=== PATIENT | female | born 1950 | race Caucasian/White ===

== ENCOUNTER 2018-05-17 10:33 | Emergency (ER) | payer OTHER ==
--- NOTE | 2018-05-17 11:23 | RAD REPORT ---
EXAM DESCRIPTION: CT - Head Brain Wo Cont - 05/17/2018 11:10 am CLINICAL HISTORY: Dizziness;Headache COMPARISON: No comparisons TECHNIQUE: All CT scans are performed using dose optimization technique as appropriate and may inclu de automated exposure control or mA/KV adjustment according to patient size. FINDINGS: No intracranial hemorrhage, hydrocephalus or extra-axial fluid collection.No areas of brai n edema or evidence of midline shift. Prominent ethmoid opacification is seen. Fluid is present in the left mastoid cell. The calvarium is intact. IMPRESSION: No acute intracranial abnormality. Opacification of the right ethmoid sinus and left mastoid air cell suggesting sinusitis/mastoiditis.
[2018-05-17 11:32] LABS: Urine Blood NEGATIVE (NEG); Urine Glucose NEGATIVE (NEG); Urine Protein NEGATIVE (NEG)
[2018-05-17 11:41] LABS: Absolute Lymphocytes (CBC) 0.7 K/uL (0.7-4.9); Absolute Monocytes 0.3 K/uL (0.1-1.3); Absolute Neutrophil 3.2 K/uL (1.8-8.0); Basophils % 0.3 % (0-1.3); Eosinophils % 0.6 % (0-4.4); Hematocrit 48.5 % (36.0-45.0); MCH 31.1 pg (27.0-35.0); MCV 94.8 fL (80-100); MPV 9.1 fL (7.6-11.3); Monocytes % 7.3 % (3.3-12.3); RBC Red Blood Cell Count 5.12 M/uL (3.86-4.86)
[2018-05-17 11:42] LABS: Protime INR 0.92
[2018-05-17] MEDS ORDERED: DEXAMETHASONE 10 MG/ML VIAL ONE (11:43)
[2018-05-17] MEDS ORDERED: METOCLOPRAMIDE 10 MG/2mL INJ ONE (11:43)
[2018-05-17] MEDS ORDERED: NA CHLORIDE 0.9% 50 ML IV ONE (11:44)
[2018-05-17] MEDS ORDERED: NA CHLORIDE 0.9% 0 ML IV ONE (11:44)
[2018-05-17] MEDS ORDERED: DIPHENHYDRAMINE 50 MG/ML VIAL ONE (11:44)
--- NOTE | 2018-05-17 12:03 | EKG ---
Test Date: 2018-05-17 Test Time: 11:17:15 Irrigator Head: REINA MEASUREMENT RESULTS: Intervals: Rate: 102 NC: 146 QRSD: 82 QT: 322 QTc: 419 [place]: P: 61 NC: 146 QRS: 71 T: 49 INTERPRETIVE STATEMENTS: Sinus tachycardia Otherwise normal ECG Compared to ECG 08/07/2017 16:37:48 Sinus rhythm no longer present Electronically Signed On 05-17-18 12:03:19 CDT by Berny Walsh
[2018-05-17 12:05] LABS: BUN Blood Urea Nitrogen 13 mg/dL (7-18); Bicarbonate 36 mmol/L (21-32); Glucose Level 96 mg/dL (74-106); Potassium 4.5 mmol/L (3.5-5.1); Sodium Level 144 mmol/L (136-145)
[2018-05-17] MEDS ORDERED: ALBUTEROL 2.5 MG/3 ML NEB SOL ONE (12:35)
[2018-05-17] MEDS ORDERED: IPRATROPIUM BROM 0.5MG/2.5ML ONE (12:36)
--- NOTE | 2018-05-17 13:31 | ER ---
Nurse's Notes [facility] Name: Cassia Garcia Age: 67 yrs Sex: Female : 1950 Arrival Date: 05/17/2018 Time: 10:36 Bed 14 Private MD: Diagnosis: Migraine Presentation: 05/17 10:37 Presenting complaint: EMS states: Pt reports headache x 1 week and dizziness x 3 weeks, ph states that her doctor wanted her to have a neuro check. Transition of care: patient was not received from another setting of care. Onset of symptoms was May 17, 2018. Risk Assessment: Do you want to hurt yourself or someone else? Patient reports no desire to harm self or others. Initial Sepsis Screen: Does the patient meet any 2 criteria? No. Patient's initial sepsis screen is negative. Does the patient have a suspected source of infection? No. Patient's initial sepsis screen is negative. Care prior to arrival: None. 10:37 Method Of Arrival: EMS: [facility] 10:37 Acuity: [facility] 3 ph Historical: - Allergies: 10:41 Aspirin; ph - Home Meds: 11:16 Breo Ellipta 100-25 mcg/dose inhalation dsdv [Active]; Symbicort 80-4.5 mcg/actuation ph inhalation HFAA [Active]; Ventolin HFA 90 mcg/actuation Nebulizer HFAA [Active]; trazodone 100 mg oral tab 1 tab nightly [Active]; benzonatate 100 mg oral cap 1 cap 3 times per day [Active]; montelukast 10 mg oral tab 1 tab once daily [Active]; duloxetine 60 mg oral cpDR 1 cap once daily [Active]; ropinirole 0.25 mg oral tab 1 tab 3 times per day [Active]; levothyroxine 25 mcg tab 1 tab once daily [Active]; - PMHx: 10:41 Anxiety; Bipolar disorder; COPD; Depression; Psychotic behavior; ph - PSHx: 10:41 ; Hysterectomy; Left lumpectomy; ph - Immunization history:: Adult Immunizations unknown. - Social history:: Smoking status: Patient uses tobacco products, smokes one-half pack cigarettes per day. - Ebola Screening: : No symptoms or risks identified at this time. Screenin:18 Abuse screen: Denies threats or abuse. Denies injuries from another. Nutritional ph screening: No deficits noted. Tuberculosis screening: No symptoms or risk factors identified. Fall Risk Fall in past 12 months (25 points). No secondary diagnosis (0 pts). IV access (20 points). Ambulatory Aid- None/Bed Rest/Nurse Assist (0 pts). Gait- Normal/Bed Rest/Wheelchair (0 pts) Mental Status- Oriented to own ability (0 pts). Total [place] Fall Scale indicates High Risk Score (45 or more points). Fall prevention measures have been instituted. Side Rails Up X 2 Placed Close to Nursing Station Frequent Obs/Assessments Occuring As available patient and family educated on Fall Prevention Program and Strategies. Assessment: 10:45 General: Appears in no apparent distress. comfortable, obese, Behavior is calm, ph cooperative, appropriate for age, Denies fever. Pain: Complains of pain in right frontal area and right temporal area Pain currently is 10 out of 10 on a pain scale. Neuro: Level of Consciousness is awake, alert, obeys commands, Oriented to person, place, time, situation, Reports dizziness, x 3 weeks headache in right frontal area, x 1 week Denies weakness blurred vision. Cardiovascular: Capillary refill < 3 seconds in bilateral fingers Patient's skin is warm and dry. Respiratory: Reports cough that is Airway is patent Respiratory effort is even, unlabored, Respiratory pattern is regular, symmetrical. GI: No signs and/or symptoms were reported involving the gastrointestinal system. : No signs and/or symptoms were reported regarding the genitourinary system. Derm: Skin is intact, Skin is pink, warm \\T\\ dry. Musculoskeletal: Circulation, motion, and sensation intact. Range of motion: intact in all extremities. 12:30 Reassessment: Patient appears in no apparent distress at this time. Patient and/or ph family updated on plan of care and expected duration. Pain level reassessed. Patient is alert, oriented x 3, equal unlabored respirations, skin warm/dry/pink. Pt taken to restroom via wheelchair, states, " It's time for my breathing tx, do you think I can get one?" Pt noted to be wheezing and coughing, ERP notified, see MAR. 13:45 Reassessment: Patient appears in no apparent distress at this time. Patient and/or ph family updated on plan of care and expected duration. Pain level reassessed. Patient is alert, oriented x 3, equal unlabored respirations, skin warm/dry/pink. Pt resting quietly, VSS. 14:06 Reassessment: Patient appears in no apparent distress at this time. Patient and/or ph family updated on plan of care and expected duration. Pain level reassessed. Patient is alert, oriented x 3, equal unlabored respirations, skin warm/dry/pink. Pt instructed to follow up w/ neuro and d/c home. Vital Signs: 10:38 BP 152 / 71; Pulse 97; Resp 18; Temp 99.7(O); Pulse Ox 91% on R/A; Weight 110.22 kg; ph Height 5 ft. 1 in. (154.94 cm); Pain 10/10; 11:30 BP 142 / 89; Pulse 98; Resp 22; Pulse Ox 95% on 2 lpm NC; ph 12:31 BP 113 / 74; Pulse 95; Resp 18; Pulse Ox 97% on 2 lpm NC; ph 13:45 BP 145 / 63; Pulse 92; Resp 16; Pulse Ox 93% on R/A; ph 14:19 Temp 97.9(O); ph 10:38 Body Mass Index 45.91 (110.22 kg, 154.94 cm) ph ED Course: 10:36 Patient arrived in ED. ph 10:38 Triage completed. ph 10:41 Arm band placed on. ph 10:46 Ced Irby PA is PHCP. jr8 10:46 Frank García MD is Attending Physician. jr8 11:[address] mw3 11:09 Che Rios, PURVI is Primary Nurse. ph 11:10 CT Head Brain wo Cont In Process Unspecified. EDMS 11:19 Patient has correct armband on for positive identification. Placed in gown. Bed in low ph position. Call light in reach. Side rails up X 1. Pulse ox on. NIBP on. Warm blanket given. 11:25 Missed attempt(s): 22 gauge in left hand. Bleeding controlled, band aid applied, ss catheter tip intact. 11:28 EKG done, by pest control chemical technician. reviewed by Ced LEE. at1 11:34 Inserted saline lock: 22 gauge in left antecubital area, using aseptic technique. Blood ss collected. 13:30 Wilmer Musa MD is Referral Physician. jr8 14:15 No provider procedures requiring assistance completed. IV discontinued, intact, ph bleeding controlled, No redness/swelling at site. Pressure dressing applied. Administered Medications: 11:54 Drug: Reglan 10 mg {Note: mixed in 50cc bag of NS and administered over 15 min.} Route: ph IVP; Site: left antecubital; 11:55 Drug: Benadryl 25 mg Route: IVP; Site: left antecubital; ph 11:57 Drug: Decadron - Dexamethasone 10 mg Route: IVP; Site: left antecubital; ph 12:35 Drug: Albuterol 2.5 mg Route: Inhalation; ss 12:36 Drug: AtroVENT Aerosol 0.5 mg Route: Inhalation; ss 13:35 Drug: fentaNYL (PF) 50 mcg Route: IVP; Site: left antecubital; ph Outcome: 13:30 Discharge ordered by . jr8 14:19 Patient left the ED. ph 14:19 Discharged to home via wheelchair. ph 14:19 Condition: good 14:19 Discharge instructions given to patient, Instructed on discharge instructions, follow up and referral plans. Demonstrated understanding of instructions, follow-up care. Signatures: Dispatcher [employer] EDMS Denise Gibson RN RN Ced Irby PA PA jr8 Elsa hernandez, blow pit helper EKG Tat1 Che Rios RN RN Edyta Quan mw3 Corrections: (The following items were deleted from the chart) 11:57 11:54 Reglan 10 mg IVP in left antecubital ph ph
--- NOTE | 2018-05-17 13:31 | EDPHYS ---
Physician Documentation [facility] Name: Cassia Garcia Age: 67 yrs Sex: Female : 1950 Arrival Date: 05/17/2018 Time: 10:36 Bed 14 Private MD: ED Physician Frank García HPI: 05/17 11:20 This 67 yrs old Female presents to ER via EMS with complaints of Headache > jr8 24hrs Old. 11:20 The patient complains of pain to the right side of the back of head, right temporal jr8 area and right occipital area. The patient describes the headache as aching, sharp. Onset: The symptoms/episode began/occurred gradually, 1 week(s) ago. Associated signs and symptoms: Pertinent positives: dizziness. Severity of symptoms: At its worst the pain was moderate, in the emergency department the pain is unchanged. Headache History: Denies prior headaches. The patient has not experienced similar symptoms in the past. The patient has not recently seen a physician. Historical: - Allergies: 10:41 Aspirin; ph - Home Meds: 11:16 Breo Ellipta 100-25 mcg/dose inhalation dsdv [Active]; Symbicort 80-4.5 mcg/actuation ph inhalation HFAA [Active]; Ventolin HFA 90 mcg/actuation Nebulizer HFAA [Active]; trazodone 100 mg oral tab 1 tab nightly [Active]; benzonatate 100 mg oral cap 1 cap 3 times per day [Active]; montelukast 10 mg oral tab 1 tab once daily [Active]; duloxetine 60 mg oral cpDR 1 cap once daily [Active]; ropinirole 0.25 mg oral tab 1 tab 3 times per day [Active]; levothyroxine 25 mcg tab 1 tab once daily [Active]; - PMHx: 10:41 Anxiety; Bipolar disorder; COPD; Depression; Psychotic behavior; ph - PSHx: 10:41 ; Hysterectomy; Left lumpectomy; ph - Immunization history:: Adult Immunizations unknown. - Social history:: Smoking status: Patient uses tobacco products, smokes one-half pack cigarettes per day. - Ebola Screening: : No symptoms or risks identified at this time. ROS: 11:20 Eyes: Negative for injury, pain, redness, and discharge, ENT: Negative for injury, jr8 pain, and discharge, Neck: Negative for injury, pain, and swelling, Cardiovascular: Negative for chest pain, palpitations, and edema, Respiratory: Negative for shortness of breath, cough, wheezing, and pleuritic chest pain, Abdomen/GI: Negative for abdominal pain, nausea, vomiting, diarrhea, and constipation, Back: Negative for injury and pain, MS/Extremity: Negative for injury and deformity, Skin: Negative for injury, rash, and discoloration. 11:20 Neuro: Positive for dizziness, headache, Negative for altered mental status, gait disturbance, hearing loss, loss of consciousness, numbness, seizure activity, speech changes, syncope, near syncope, tingling, tinnitus, tremor, visual changes, weakness. Exam: 11:20 Eyes: Pupils equal round and reactive to light, extra-ocular motions intact. Lids and jr8 lashes normal. Conjunctiva and sclera are non-icteric and not injected. Cornea within normal limits. Periorbital areas with no swelling, redness, or edema. ENT: Nares patent. No nasal discharge, no septal abnormalities noted. Tympanic membranes are normal and external auditory canals are clear. Oropharynx with no redness, swelling, or masses, exudates, or evidence of obstruction, uvula midline. Mucous membranes moist. Neck: Trachea midline, no thyromegaly or masses palpated, and no cervical lymphadenopathy. Supple, full range of motion without nuchal rigidity, or vertebral point tenderness. No Meningismus. Cardiovascular: Regular rate and rhythm with a normal S1 and S2. No gallops, murmurs, or rubs. Normal PMI, no JVD. No pulse deficits. Respiratory: Lungs have equal breath sounds bilaterally, clear to auscultation and percussion. No rales, rhonchi or wheezes noted. No increased work of breathing, no retractions or nasal flaring. Abdomen/GI: Soft, non-tender, with normal bowel sounds. No distension or tympany. No guarding or rebound. No evidence of tenderness throughout. Back: No spinal tenderness. No costovertebral tenderness. Full range of motion. Skin: Warm, dry with normal turgor. Normal color with no rashes, no lesions, and no evidence of cellulitis. MS/ Extremity: Pulses equal, no cyanosis. Neurovascular intact. Full, normal range of motion. Neuro: Awake and alert, GCS 15, oriented to person, place, time, and situation. Cranial nerves II-XII grossly intact. Motor strength 5/5 in all extremities. Sensory grossly intact. Cerebellar exam normal. Normal gait. Vital Signs: 10:38 BP 152 / 71; Pulse 97; Resp 18; Temp 99.7(O); Pulse Ox 91% on R/A; Weight 110.22 kg; ph Height 5 ft. 1 in. (154.94 cm); Pain 10/10; 11:30 BP 142 / 89; Pulse 98; Resp 22; Pulse Ox 95% on 2 lpm NC; ph 12:31 BP 113 / 74; Pulse 95; Resp 18; Pulse Ox 97% on 2 lpm NC; ph 13:45 BP 145 / 63; Pulse 92; Resp 16; Pulse Ox 93% on R/A; ph 14:19 Temp 97.9(O); ph 10:38 Body Mass Index 45.91 (110.22 kg, 154.94 cm) ph MDM: 10:57 Patient medically screened. jr8 13:29 Differential diagnosis: cluster headache, cerebral vascular accident, epidural jr8 hematoma, glaucoma, herpes zoster, hypertensive headache, hypoglycemia, hyponatremia, intracerebral hemorrhage, meningitis, migraine, neoplasm, otitis, sinusitis, subarachnoid bleed, subdural hematoma, temporal arteritis, tension headache, traumatic injuries, trigeminal neuralgia. Data reviewed: vital signs, nurses notes, lab test result(s), EKG, radiologic studies, CT scan. Data interpreted: Pulse oximetry: on room air is 97 %. Interpretation: normal. Counseling: I had a detailed discussion with the patient and/or guardian regarding: the historical points, exam findings, and any diagnostic results supporting the discharge/admit diagnosis, lab results, radiology results, the need for outpatient follow up, a neurologist, to return to the emergency department if symptoms worsen or persist or if there are any questions or concerns that arise at home. Response to treatment: the patient's symptoms have markedly improved after treatment. 05/17 10:58 Order name: Basic Metabolic Panel; Complete Time: 12:07 05/17 10:58 Order name: CBC with Diff; Complete Time: 11:42 05/17 10:58 Order name: Magnesium; Complete Time: 12:05/17 10:58 Order name: PT-INR; Complete Time: 11:42 05/17 10:58 Order name: CT Head Brain wo Cont; Complete Time: 11:23 05/17 11:14 Order name: Urine Dipstick--Ancillary (enter results); Complete Time: 11:36 mb4 05/17 10:58 Order name: EKG; Complete Time: 10:58 05/17 10:58 Order name: Cardiac monitoring; Complete Time: 11:33 05/17 10:58 Order name: EKG - Nurse/Tech; Complete Time: 11:33 05/17 10:58 Order name: IV Saline Lock; Complete Time: 11:33 05/17 10:58 Order name: Labs collected and sent; Complete Time: 11:05/17 10:58 Order name: O2 Per Protocol; Complete Time: :33 05/17 10:58 Order name: O2 Sat Monitoring; Complete Time: 11:33 05/17 10:58 Order name: Urine Dipstick-Ancillary (obtain specimen); Complete Time: 11:34 Administered Medications: 11:54 Drug: Reglan 10 mg {Note: mixed in 50cc bag of NS and administered over 15 min.} Route: ph IVP; Site: left antecubital; 11:55 Drug: Benadryl 25 mg Route: IVP; Site: left antecubital; ph 11:57 Drug: Decadron - Dexamethasone 10 mg Route: IVP; Site: left antecubital; ph 12:35 Drug: Albuterol 2.5 mg Route: Inhalation; ss 12:36 Drug: AtroVENT Aerosol 0.5 mg Route: Inhalation; ss 13:35 Drug: fentaNYL (PF) 50 mcg Route: IVP; Site: left antecubital; ph Disposition: 14:47 Co-signature as Attending Physician, Frank García MD I agree with the assessment and kdr plan of care. Disposition: 05/17/18 13:30 Discharged to Home. Impression: Migraine. - Condition is Stable. - Discharge Instructions: Migraine Headache. - Medication Reconciliation Form, Thank You Letter, Antibiotic Education, Prescription Opioid Use form. - Follow up: Wilmer Musa MD; When: 5 - 6 days; Reason: Recheck today's complaints, Continuance of care, Re-evaluation by your physician. - Problem is new. - Symptoms have improved. Signatures: Dispatcher [employer] EDMS Frank García MD MD [facility] Denise Gibson RN RN Ced Irby PA PA jr8 Che Rios RN RN ph Corrections: (The following items were deleted from the chart) 14:19 13:30 05/17/2018 13:30 Discharged to Home. Impression: Migraine. Condition is Stable. ph Forms are Medication Reconciliation Form, Thank You Letter, Antibiotic Education, Prescription Opioid Use. Follow up: Wilmer Musa; When: 5 - 6 days; Reason: Recheck today's complaints, Continuance of care, Re-evaluation by your physician. Problem is new. Symptoms have improved. jr8
[2018-05-17] MEDS ORDERED: FENTANYL CITR 100 MCG/2 ML ONE (13:41)
== END 2018-05-17 14:19 | disposition home or self-care (01) ==
LOC: ER 10:33
DX: G43.909 Migraine, unspecified, not intractable, without status migrainosus (principal); F32.9 Major depressive disorder, single episode, unspecified; F31.9 Bipolar disorder, unspecified; J44.9 Chronic obstructive pulmonary disease, unspecified; F17.210 Nicotine dependence, cigarettes, uncomplicated; Z88.6 Allergy status to analgesic agent
CPT/HCPCS: 36415; 70450; 80048; 81003; 83735; 85025; 85610; 93005; J1100; J2765; J3010; 96374; 96375; 99285

== ENCOUNTER 2018-07-11 19:07 | Inpatient (IN) | payer OTHER ==
[2018-07-11 19:38] LABS: Absolute Lymphocytes (CBC) 0.9 K/uL (0.7-4.9); Absolute Monocytes 0.4 K/uL (0.1-1.3); Absolute Neutrophil 3.5 K/uL (1.8-8.0); Basophils % 0.5 % (0-1.3); Eosinophils % 0.5 % (0-4.4); Hematocrit 44.5 % (36.0-45.0); Lymphocytes % 18.4 % (15.3-44.8); MCH 31.2 pg (27.0-35.0); MCV 95.5 fL (80-100); MPV 9.5 fL (7.6-11.3); Monocytes % 7.9 % (3.3-12.3); RBC Red Blood Cell Count 4.66 M/uL (3.86-4.86)
[2018-07-11] MEDS ORDERED: LEVALBUTEROL 1.25 MG/3 ML NEB ONE ×2 (19:45→21:26)
[2018-07-11] MEDS ORDERED: METHYLPREDNISOLONE 125 MG INJ ONE (19:45)
[2018-07-11] MEDS ORDERED: IPRATROPIUM BROM 0.5MG/2.5ML ONE (19:45)
--- NOTE | 2018-07-11 19:59 | RAD REPORT ---
EXAM DESCRIPTION: Joshua Single View07/11/2018 7:46 pm CLINICAL HISTORY: cough COMPARISON: August 2017 FINDINGS: The lungs appear clear of acute infiltrate. The heart is normal size. Old rib fractures a re present. An old left clavicular fracture is seen IMPRESSION: No acute abnormalities displayed
[2018-07-11 20:48] LABS: BUN Blood Urea Nitrogen 13 mg/dL (7-18); Bicarbonate 39 mmol/L (21-32); Glucose Level 112 mg/dL (74-106); NT PRO-BNP 240 pg/mL (<125); Potassium 4.5 mmol/L (3.5-5.1); Sodium Level 141 mmol/L (136-145); Troponin (Emerg Dept Use Only) < 0.02 ng/mL (0.0-0.045)
--- NOTE | 2018-07-11 21:17 | ER ---
Nurse's Notes [facility] Name: Cassia Garcia Age: 67 yrs Sex: Female : 1950 Arrival Date: 07/11/2018 Time: 19:12 Bed 26 Private MD: Diagnosis: Dyspnea, unspecified;Chronic obstructive pulmonary disease with (acute) exacerbation Presentation: 07/11 19:15 Presenting complaint: EMS states: Shortness of breath x 3 days, using Albuterol and lp1 Atrovent 6x a day for relief; On arrival of EMS, patient 84% on RA, given A/A tx with relief. Transition of care: patient was not received from another setting of care. Onset of symptoms was July 11, 2018. Risk Assessment: Do you want to hurt yourself or someone else? Patient reports no desire to harm self or others. Initial Sepsis Screen: Does the patient meet any 2 criteria? No. Patient's initial sepsis screen is negative. Does the patient have a suspected source of infection? No. Patient's initial sepsis screen is negative. Care prior to arrival: Medication(s) given: Albuterol Neb x 1, Atrovent Neb x 1, IV initiated. 20 GA, in the right hand, Med neb given. Oxygen administered. via a nebulizer mask. 19:15 Method Of Arrival: EMS: [facility] 19:15 Acuity: [facility] 3 lp1 Historical: - Allergies: 19:33 Aspirin; lp1 - Home Meds: 19:33 duloxetine 60 mg Oral cpDR 1 cap once daily [Active]; aripiprazole 20 mg oral tab 1 tab lp1 once daily [Active]; trazodone 100 mg Oral tab 1 tab nightly [Active]; montelukast 10 mg Oral tab 1 tab once daily [Active]; levothyroxine 25 mcg tab 1 tab once daily [Active]; ropinirole 0.25 mg Oral tab 1 tab 3 times per day [Active]; Symbicort 80-4.5 mcg/actuation inhalation HFAA 2 times per day [Active]; Ventolin HFA 90 mcg/actuation Nebulizer HFAA [Active]; Albuterol Nebulizer [Active]; Atrovent Nebulizer [Active]; - PMHx: 19:33 Anxiety; Bipolar disorder; COPD; Depression; Psychotic behavior; Asthma; lp1 - PSHx: 19:33 Hysterectomy; ; Foot surgery; Cholecystectomy; lp1 - Immunization history:: Adult Immunizations up to date. - Social history:: Smoking status: Patient uses tobacco products, smokes one pack cigarettes per day. - Ebola Screening: : No symptoms or risks identified at this time. - Family history:: not pertinent. - Hospitalizations: : No recent hospitalization is reported. Screenin:36 Abuse screen: Denies threats or abuse. Denies injuries from another. Nutritional lp1 screening: No deficits noted. Tuberculosis screening: No symptoms or risk factors identified. Fall Risk None identified. Assessment: 19:34 General: Appears uncomfortable, Behavior is appropriate for age. Pain: Complains of lp1 pain in back and chest. Neuro: Level of Consciousness is awake, alert, obeys commands, Oriented to person, place, time, situation. Cardiovascular: Patient's skin is warm and dry. Rhythm is sinus rhythm. Respiratory: Reports shortness of breath at rest cough that is productive, labored breathing pain with cough Airway is patent Respiratory effort is even, labored, Respiratory pattern is regular, Breath sounds with wheezes in left posterior upper lobe, right posterior upper lobe, left posterior lower lobe, right posterior middle lobe and right posterior lower lobe Onset: The symptoms/episode began/occurred gradually, the patient has moderate shortness of breath. GI: Abdomen is obese. : No signs and/or symptoms were reported regarding the genitourinary system. EENT: No signs and/or symptoms were reported regarding the EENT system. Derm: Skin is intact, Skin is dry, Skin is normal. Musculoskeletal: Circulation, motion, and sensation intact. 20:30 Reassessment: Patient appears in no apparent distress at this time. No changes from lp1 previously documented assessment. Patient with continued cough. 21:00 Reassessment: Dr. Garcia at bedside to discuss plan of care with patient. lp1 22:05 Reassessment: Patient given sandwich at this time, no further needs; aware of pending lp1 admission Patient states feeling better. 23:19 Reassessment: Patient appears in no apparent distress at this time. Patient and/or lp1 family updated on plan of care and expected duration. Pain level reassessed. Patient aware of pending admission. 23:46 Reassessment: Patient at 90% on NC at 2L; Switched to Venturi mask at 35%, O2 sat at lp1 94%. Vital Signs: 19:18 BP 146 / 76; Pulse 102; Resp 22; Temp 99.2(O); Pulse Ox 95% on 2 lpm NC; Weight 111.13 lp1 kg; Height 5 ft. 1 in. (154.94 cm); Pain 4/10; 20:30 BP 123 / 60; Pulse 99; Resp 21; Pulse Ox 92% on 2 lpm NC; lp1 21:15 BP 121 / 62; Pulse 112; Resp 24; Pulse Ox 97% on Nebulizer Mask; lp1 22:30 BP 119 / 57; Pulse 103; Resp 25; Pulse Ox 97% on 2 lpm NC; lp1 23:18 BP 100 / 71; Pulse 104; Resp 20; Temp 99.2(O); Pulse Ox 92% on 2 lpm NC; lp1 23:56 BP 118 / 64; Pulse 96; Resp 24; Pulse Ox 94% on 35% Venturi mask; lp1 19:18 Body Mass Index 46.29 (111.13 kg, 154.94 cm) lp1 ED Course: 19:12 Patient arrived in ED. rn 19:13 Karri Garcia MD is Attending Physician. rn 19:15 Mara Childers RN is Primary Nurse. lp1 19:15 Maintain EMS IV. Dressing intact. Good blood return noted. Site clean \T\ dry. Gauge \T\ lp 1 site: 20g to R hand. 19:18 Triage completed. lp1 19:18 Arm band placed on left wrist. lp1 19:36 Patient has correct armband on for positive identification. Placed in gown. Bed in low lp1 position. Call light in reach. Side rails up X2. tenter feeder on. Pulse ox on. NIBP on. 19:46 XRAY CXR (1 view) In Process Unspecified. EDMS 21:14 No provider procedures requiring assistance completed. lp1 21:16 Bacilio Renner MD is Hospitalizing Provider. rn 21:18 Patient admitted, IV remains in place. lp1 Administered Medications: 19:47 Drug: SOLU-Medrol 125 mg Route: IVP; Site: right hand; lp1 21:18 Follow up: Response: No adverse reaction lp1 19:47 Drug: Xopenex (3) 1.25 mg Route: Inhalation; lp1 19:47 Drug: AtroVENT Aerosol 0.5 mg Route: Inhalation; lp1 21:24 Drug: Xopenex 1.25 mg Route: Inhalation; lp1 Outcome: 21:17 Decision to Hospitalize by Provider. rn 21:18 Condition: stable lp1 21:18 Instructed on the need for admit. 23:23 Admitted to Tele accompanied by tech, via stretcher, room 420, with oxygen, with chart, lp1 Report called to PURVI Meza 23:57 Patient left the ED. lp1 Signatures: Dispatcher [employer] EDMS Karri Garcia MD MD rn Mara Childers RN RN lp1
--- NOTE | 2018-07-11 21:17 | EDPHYS ---
Physician Documentation [facility] Name: Cassia Garcia Age: 67 yrs Sex: Female : 1950 Arrival Date: 07/11/2018 Time: 19:12 Bed 26 Private MD: ED Physician Karri Garcia HPI: 07/11 19:59 This 67 yrs old Female presents to ER via EMS with complaints of Shortness Of rn Breath. 19:59 The patient has shortness of breath at rest. Onset: The symptoms/episode began/occurred rn 2 day(s) ago. Duration: The symptoms are continuous. The patient's shortness of breath is aggravated by coughing, exertion, light activity, supine position. Associated signs and symptoms: Pertinent positives: non-productive cough, Pertinent negatives: fever, hemoptysis, loss of consciousness. Severity of symptoms: At their worst the symptoms were moderate in the emergency department the symptoms have improved. The patient has experienced similar episodes in the past. The patient has not recently seen a physician. Reports 2 days of non-productive cough, + wheezing, using breathing treatments every 4 hours, having to wake up and use at night as well, given albuterol by EMS, RA sats 85%, on 2L all the time at home. . Historical: - Allergies: 19:33 Aspirin; lp1 - Home Meds: 19:33 duloxetine 60 mg Oral cpDR 1 cap once daily [Active]; aripiprazole 20 mg oral tab 1 tab lp1 once daily [Active]; trazodone 100 mg Oral tab 1 tab nightly [Active]; montelukast 10 mg Oral tab 1 tab once daily [Active]; levothyroxine 25 mcg tab 1 tab once daily [Active]; ropinirole 0.25 mg Oral tab 1 tab 3 times per day [Active]; Symbicort 80-4.5 mcg/actuation inhalation HFAA 2 times per day [Active]; Ventolin HFA 90 mcg/actuation Nebulizer HFAA [Active]; Albuterol Nebulizer [Active]; Atrovent Nebulizer [Active]; - PMHx: 19:33 Anxiety; Bipolar disorder; COPD; Depression; Psychotic behavior; Asthma; lp1 - PSHx: 19:33 Hysterectomy; ; Foot surgery; Cholecystectomy; lp1 - Immunization history:: Adult Immunizations up to date. - Social history:: Smoking status: Patient uses tobacco products, smokes one pack cigarettes per day. - Ebola Screening: : No symptoms or risks identified at this time. - Family history:: not pertinent. - Hospitalizations: : No recent hospitalization is reported. ROS: 19:59 Constitutional: Negative for fever, chills, and weight loss, Eyes: Negative for injury, rn pain, redness, and discharge, Neck: Negative for injury, pain, and swelling, Cardiovascular: Negative for palpitations, and edema, Respiratory: + sob and cough, + wheezing Abdomen/GI: Negative for abdominal pain, nausea, vomiting, diarrhea, and constipation, MS/Extremity: Negative for injury and deformity, Skin: Negative for injury, rash, and discoloration, Neuro: Negative for headache, weakness, numbness, tingling, and seizure. Exam: 19:59 Constitutional: This is a well developed, well nourished patient who is awake, alert rn Head/Face: Normocephalic, atraumatic. Eyes: Pupils equal round and reactive to light, extra-ocular motions intact. Lids and lashes normal. Conjunctiva and sclera are non-icteric and not injected. Cornea within normal limits. Periorbital areas with no swelling, redness, or edema. ENT: dry MM, no stridor Cardiovascular: tachycardic, regular, no murmur Respiratory: + mild tachypnea with wheezing bilaterally, left>right Abdomen/GI: soft, non-tender MS/ Extremity: Pulses equal, no cyanosis. Neurovascular intact. Full, normal range of motion. Equal circumference. Neuro: Awake and alert, GCS 15, oriented to person, place, time, and situation. Motor strength 5/5 in all extremities. Sensory grossly intact. Vital Signs: 19:18 BP 146 / 76; Pulse 102; Resp 22; Temp 99.2(O); Pulse Ox 95% on 2 lpm NC; Weight 111.13 lp1 kg; Height 5 ft. 1 in. (154.94 cm); Pain 4/10; 20:30 BP 123 / 60; Pulse 99; Resp 21; Pulse Ox 92% on 2 lpm NC; lp1 21:15 BP 121 / 62; Pulse 112; Resp 24; Pulse Ox 97% on Nebulizer Mask; lp1 22:30 BP 119 / 57; Pulse 103; Resp 25; Pulse Ox 97% on 2 lpm NC; lp1 23:18 BP 100 / 71; Pulse 104; Resp 20; Temp 99.2(O); Pulse Ox 92% on 2 lpm NC; lp1 23:56 BP 118 / 64; Pulse 96; Resp 24; Pulse Ox 94% on 35% Venturi mask; lp1 19:18 Body Mass Index 46.29 (111.13 kg, 154.94 cm) lp1 MDM: 19:13 Patient medically screened. rn 21:15 Differential diagnosis: Bronchitis Chronic Obstructive Pulmonary Disease Myocardial rn Infarction pneumonia, Pneumothorax pulmonary edema, reactive airway disease. Data reviewed: vital signs, nurses notes, lab test result(s), EKG, radiologic studies, plain films, and as a result, I will admit patient. Counseling: I had a detailed discussion with the patient and/or guardian regarding: the historical points, exam findings, and any diagnostic results supporting the discharge/admit diagnosis, lab results, radiology results, the need for further work-up and treatment in the hospital. Response to treatment: the patient's symptoms have mildly improved after treatment, and as a result, I will admit patient. Admission orders: after a detailed discussion of the patient's condition and case, the admit orders are written by me. ED course: Still wheezing and sob, oxygen 90% on home 2L. . 07/11 19:20 Order name: Blood Culture Adult (2) rn 07/11 19:20 Order name: BMP; Complete Time: 20:53 rn 07/11 19:20 Order name: CBC with Diff; Complete Time: 20:05 rn 07/11 19:20 Order name: NT PRO-BNP; Complete Time: 20:53 rn 07/11 19:20 Order name: Troponin (emerg Dept Use Only); Complete Time: 20:53 rn 07/11 21:47 Order name: CBC with Automated Diff EDMS 07/11 21:48 Order name: CBC with Automated Diff EDMS 07/11 21:48 Order name: Comprehensive Metabolic Panel EDMS 07/11 21:48 Order name: Comprehensive Metabolic Panel EDMS 07/11 21:48 Order name: Magnesium EDMS 07/11 21:48 Order name: Magnesium EDMS 07/11 21:48 Order name: Phosphorus EDMS 07/11 21:48 Order name: Phosphorus EDMS 07/11 21:48 Order name: Troponin I EDMS 07/11 19:20 Order name: XRAY CXR (1 view); Complete Time: 20:05 rn 07/11 19:20 Order name: EKG; Complete Time: 19:21 rn 07/11 19:20 Order name: Cardiac monitoring; Complete Time: 19:37 rn 07/11 19:20 Order name: EKG - Nurse/Tech; Complete Time: 19:37 rn 07/11 19:20 Order name: IV Saline Lock; Complete Time: 19:36 rn 07/11 19:20 Order name: Labs collected and sent; Complete Time: 19:36 rn 07/11 19:20 Order name: O2 Per Protocol; Complete Time: 19:36 rn 07/11 19:20 Order name: O2 Sat Monitoring; Complete Time: 19:36 rn 07/11 21:47 Order name: Heart Healthy EDMN 07/11 21:48 Order name: Troponin I EDMN 07/11 21:48 Order name: Troponin I EDMN 07/11 21:48 Order name: Urinalysis EDMS Administered Medications: 19:47 Drug: SOLU-Medrol 125 mg Route: IVP; Site: right hand; lp1 21:18 Follow up: Response: No adverse reaction lp1 19:47 Drug: Xopenex (3) 1.25 mg Route: Inhalation; lp1 19:47 Drug: AtroVENT Aerosol 0.5 mg Route: Inhalation; lp1 21:24 Drug: Xopenex 1.25 mg Route: Inhalation; lp1 Disposition: 07/11/18 21:17 Hospitalization ordered by Bacilio Renner for Observation. Preliminary diagnosis are Dyspnea, unspecified, Chronic obstructive pulmonary disease with (acute) exacerbation. - Bed requested for Telemetry/MedSurg (observation). - Status is Observation. lp1 - Condition is Stable. - Problem is new. - Symptoms have improved. UTI on Admission? No Signatures: Dispatcher [employer] EDMN Dana Story RN RN kl Nieto, Roman, MD MD rn Pena, Laura, RN RN lp1 Corrections: (The following items were deleted from the chart) 22:19 21:17 Hospitalization Ordered by Bacilio Renner MD for Observation. Preliminary renee diagnosis is Dyspnea, unspecified; Chronic obstructive pulmonary disease with (acute) exacerbation. Bed requested for Telemetry/MedSurg (observation). Status is Observation. Condition is Stable. Problem is new. Symptoms have improved. UTI on Admission? No. rn 23:57 22:19 07/11/2018 21:17 Hospitalization Ordered by Bacilio Renner MD for Observation. lp1 Preliminary diagnosis is Dyspnea, unspecified; Chronic obstructive pulmonary disease with (acute) exacerbation. Bed requested for Telemetry/MedSurg (observation). Status is Observation. Condition is Stable. Problem is new. Symptoms have improved. UTI on Admission? No. kl
[2018-07-11] MEDS ORDERED: ONDANSETRON 4 MG/2 ML VIAL IV PRN (21:43)
[2018-07-11] MEDS ORDERED: ALPRAZOLAM 0.25 MG TABLET PO PRN (21:43)
[2018-07-12] MEDS: METHYLPREDNISOLONE 125 MG INJ IV SCH ×3 (00:46→11:59)
[2018-07-12] MEDS ORDERED: ALBUTEROL 2.5 MG/3 ML NEB SOL NEB SCH ×2 (02:00→08:00)
[2018-07-12] MEDS ORDERED: IPRATROPIUM BROM 0.5MG/2.5ML NEB SCH ×2 (02:00→08:00)
[2018-07-12] MEDS ORDERED: HOME MED 1 EA UNK (Albuterol Sulfate [Ventolin Hfa] 2 PUFF) NEB PRN (03:36)
[2018-07-12] MEDS ORDERED: TRAZODONE 50 MG TABLET PO PRN (03:36)
[2018-07-12 04:25] LABS: Albumin 3.5 g/dL (3.4-5.0); Bilirubin Total 0.3 mg/dL (0.2-1.0); Phosphorus 2.4 mg/dL (2.5-4.9); Potassium 4.3 mmol/L (3.5-5.1); Protein, Total 7.1 g/dL (6.4-8.2)
[2018-07-12 04:50] LABS: Absolute Lymphocytes (CBC) 0.2 K/uL (0.7-4.9); Absolute Neutrophil 4.2 K/uL (1.8-8.0); Basophils % 0.1 % (0-1.3); Hematocrit 44.7 % (36.0-45.0); MCH 31.6 pg (27.0-35.0); MCV 95.3 fL (80-100); MPV 9.6 fL (7.6-11.3); Monocytes % 0.6 % (3.3-12.3); RBC Red Blood Cell Count 4.69 M/uL (3.86-4.86)
[2018-07-12] MEDS: GUAIFENESIN/CODEINE 5ML UCUP PO PRN ×2 (05:27→17:35)
[2018-07-12] MEDS: LEVOTHYROXINE SOD 0.05 MG TABLET PO SCH (05:33)
[2018-07-12 06:10] LABS: Urine Appearance CLOUDY; Urine Bilirubin NEGATIVE (NEG); Urine Blood NEGATIVE (NEG); Urine Color YELLOW; Urine Glucose NEGATIVE (NEG); Urine Microscopic Reflex ORDER UMIC; Urine Protein NEGATIVE (NEG); Urine Urobilinogen 0.2 mg/dL (0.2-1.0); Urine pH 6.5 (5.0-7.0)
[2018-07-12] MEDS: POTASS/SODIUM PHOSPHATE 1 PKT POWD.PACK PO SCH ×3 (06:43→10:48)
[2018-07-12 06:49] LABS: Urine Bacteria >50 /HPF (<20); Urine Culture Reflex Order REFLEXED; Urine RBC NONE SEEN /HPF (NONE SEEN)
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
--- NOTE | 2018-07-12 08:39 | EKG ---
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
[2018-07-12] MEDS ORDERED: HOME MED 1 EA UNK (Budesonide/Formoterol Fumarate [Symbicort 80-4.5 Mcg Inhaler] 2 PUFF) IH SCH (09:00)
[2018-07-12] MEDS ORDERED: CEFTRIAXONE 1 GM/NS 50 ML 1 GM/50 ML BAG IV SCH (09:00)
[2018-07-12] MEDS ORDERED: CEFTRIAXONE/SWI 1gm 1 GM/10 ML SYR IV SCH (09:00)
[2018-07-12 09:24] LABS: Blood Morphology Comment NOT SEEN (NOT SEEN); Platelet Estimate ADEQ
[2018-07-12] MEDS: ENOXAPARIN 40 MG/0.4 ML SQ SCH (09:28)
[2018-07-12] MEDS: ARIPiprazole 5 MG TAB PO SCH (09:30)
[2018-07-12] MEDS: ROPINIROLE HCL 0.25 MG TAB PO SCH ×3 (09:31→20:26)
[2018-07-12] MEDS: DULOXETINE 30 MG CAP PO SCH (09:31)
[2018-07-12] MEDS: MONTELUKAST 10 MG TAB PO SCH (09:31)
[2018-07-12] MEDS: IPRATROPIUM BROM 0.5MG/2.5ML NEB PRN ×2 (13:47→19:27)
[2018-07-12] MEDS: ALBUTEROL 2.5 MG/3 ML NEB SOL NEB PRN ×2 (13:47→19:27)
--- NOTE | 2018-07-12 14:53 | P.PN ---
Subjective Date of Service: 07/12/18 Primary Care Provider: CATE Howell([place], [place]) Chief Complaint: Shortness of breath Subjective: Other (Patient improved. Some shortness of breath noted. Cough noted) Physical Examination - Vital Signs Temperature: 98.7 F Blood Pressure: 142/70 Pulse: 95 Respirations: 22 Pulse Ox (%): 91 - Physical Exam General: Alert, In no apparent distress, Oriented x3, Cooperative HEENT: Atraumatic Neck: Supple Respiratory: Expiratory wheezes (Bilateral) Cardiovascular: Normal pulses, Regular rate/rhythm Gastrointestinal: Normal bowel sounds, Soft and benign, Non-distended, No tenderness, No masses, No rebound, No guarding Musculoskeletal: No erythema, No tenderness, No warmth Integumentary: No tenderness/swelling, No erythema, No warmth, No cyanosis Neurological: Normal speech, Normal strength at 5/5 x4 extr, Normal tone, Normal affect Lymphatics: No axilla or inguinal lymphadenopathy - Studies Laboratory Data (last 24 hrs) 07/12/18 03:32: Sodium 142, Potassium 4.3, BUN 16, Creatinine 0.80, Glucose 212 H, Phosphorus 2.4 L, Magnesium 2.0, Total Bilirubin 0.3, AST 17, ALT 24, Alkaline Phosphatase 70 07/12/18 03:32: WBC 4.4, Hgb 14.8, Hct 44.7, Plt Count 138 L 07/12/18 03:32: Troponin I < 0.02 07/11/18 20:00: Sodium 141, Potassium 4.5, BUN 13, Creatinine 0.70, Glucose 112 H 07/11/18 19:13: WBC 4.8, Hgb 14.5, Hct 44.5, Plt Count 137 L Microbiology Data (last 24 hrs): 07/12/18 07:15 Sputum Gram Stain - Final Medications List Reviewed: Yes Assessment & Plan Discharge Plan: Home Plan to discharge in: 48 Hours Physician Review Additional Text: Impression: COPD exacerbation likely related to chemical exposure Hypothyroidism Bipolar disorder Anxiety disorder Restless leg syndrome Chronic seasonal allergies Plan: COPD exacerbation likely related to chemical exposure: Will continue with COPD treatment including steroids and nebulized treatments. Will wean off oxygen. Will consult pulmonology to further evaluate. Anticipate discharge in the next 24-48 hr. Hypothyroidism: Will continue with her medication. Bipolar disorder: Will continue with her medication. Anxiety disorder: Will continue with her medication. Restless leg syndrome: Will continue with her medication. Chronic seasonal allergies: Will provide medication. GERD: Will provide medication. I will turn the service over to Dr. Cortez tomorrow. I will go over the plan of care with her. Time Spent Managing Pts Care (In Minutes): 55
[2018-07-12] MEDS: ARFORMOTEROL TARTRATE 15 MCG/2 ML VIAL.NEB NEB SCH (19:27)
[2018-07-12] MEDS: FAMOTIDINE 20 MG TAB PO SCH (20:26)
[2018-07-12] MEDS: predniSONE 20 MG TAB PO SCH (20:26)
[2018-07-13] MEDS: IPRATROPIUM BROM 0.5MG/2.5ML NEB PRN (01:30)
[2018-07-13] MEDS: ALBUTEROL 2.5 MG/3 ML NEB SOL NEB PRN (01:30)
[2018-07-13 04:12] LABS: Absolute Lymphocytes (CBC) 0.6 K/uL (0.7-4.9); Absolute Monocytes 0.5 K/uL (0.1-1.3); Absolute Neutrophil 7.2 K/uL (1.8-8.0); Basophils % 0.2 % (0-1.3); Hematocrit 43.3 % (36.0-45.0); Lymphocytes % 7.6 % (15.3-44.8); MCH 31.2 pg (27.0-35.0); MCV 95.2 fL (80-100); MPV 9.1 fL (7.6-11.3); Monocytes % 6.3 % (3.3-12.3); RBC Red Blood Cell Count 4.55 M/uL (3.86-4.86)
[2018-07-13 04:23] LABS: Magnesium 2.3 mg/dL (1.8-2.4); Phosphorus 4.2 mg/dL (2.5-4.9); Potassium 4.8 mmol/L (3.5-5.1)
[2018-07-13] MEDS: GUAIFENESIN/CODEINE 5ML UCUP PO PRN ×2 (05:25→20:24)
[2018-07-13] MEDS: LEVOTHYROXINE SOD 0.05 MG TABLET PO SCH (05:25)
[2018-07-13] MEDS ORDERED: PANTOPRAZOLE 40MG TABLET PO SCH (06:30)
[2018-07-13] MEDS: ARFORMOTEROL TARTRATE 15 MCG/2 ML VIAL.NEB NEB SCH ×2 (07:29→20:05)
--- NOTE | 2018-07-13 08:32 | RAD REPORT ---
EXAM DESCRIPTION: Joshua Dexter And Lat (2 Views)07/13/2018 6:56 am CLINICAL HISTORY: Cough COMPARISON: 07/11/2018 FINDINGS: Area of subsegmental atelectasis is present within the lung bases. Upper lobes appear lizzy r. The heart is normal size
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
[2018-07-13] MEDS: ENOXAPARIN 40 MG/0.4 ML SQ SCH (09:07)
[2018-07-13] MEDS: DULOXETINE 30 MG CAP PO SCH (09:07)
[2018-07-13] MEDS: ARIPiprazole 5 MG TAB PO SCH (09:07)
[2018-07-13] MEDS: ACETAMINOPHEN 500 MG TAB PO PRN ×3 (09:08→20:24)
[2018-07-13] MEDS: ROPINIROLE HCL 0.25 MG TAB PO SCH ×3 (09:09→20:25)
[2018-07-13] MEDS: predniSONE 20 MG TAB PO SCH ×3 (09:09→20:25)
[2018-07-13] MEDS: FAMOTIDINE 20 MG TAB PO SCH ×2 (09:09→20:25)
[2018-07-13] MEDS: MONTELUKAST 10 MG TAB PO SCH (09:09)
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
[2018-07-13] MEDS: IPRATROPIUM BROM 0.5MG/2.5ML NEB SCH ×2 (13:50→20:05)
[2018-07-14] MEDS: IPRATROPIUM BROM 0.5MG/2.5ML NEB SCH ×2 (02:30→08:26)
[2018-07-14 05:16] LABS: Absolute Lymphocytes (CBC) 0.7 K/uL (0.7-4.9); Absolute Monocytes 0.4 K/uL (0.1-1.3); Absolute Neutrophil 5.5 K/uL (1.8-8.0); Basophils % 0.2 % (0-1.3); Hematocrit 44.9 % (36.0-45.0); Lymphocytes % 10.2 % (15.3-44.8); MCH 31.1 pg (27.0-35.0); MCV 95.5 fL (80-100); MPV 8.9 fL (7.6-11.3); Monocytes % 5.6 % (3.3-12.3); RBC Red Blood Cell Count 4.71 M/uL (3.86-4.86)
[2018-07-14] MEDS: LEVOTHYROXINE SOD 0.05 MG TABLET PO SCH (05:22)
[2018-07-14 05:28] LABS: Magnesium 2.4 mg/dL (1.8-2.4); Phosphorus 3.6 mg/dL (2.5-4.9); Potassium 4.6 mmol/L (3.5-5.1)
[2018-07-14] MEDS: FAMOTIDINE 20 MG TAB PO SCH (08:16)
[2018-07-14] MEDS: predniSONE 20 MG TAB PO SCH (08:16)
[2018-07-14] MEDS: MONTELUKAST 10 MG TAB PO SCH (08:16)
[2018-07-14] MEDS: DULOXETINE 30 MG CAP PO SCH (08:16)
[2018-07-14] MEDS: ENOXAPARIN 40 MG/0.4 ML SQ SCH (08:16)
[2018-07-14] MEDS: ARIPiprazole 5 MG TAB PO SCH (08:16)
[2018-07-14] MEDS: ROPINIROLE HCL 0.25 MG TAB PO SCH (08:17)
[2018-07-14] MEDS: ARFORMOTEROL TARTRATE 15 MCG/2 ML VIAL.NEB NEB SCH (08:26)
[2018-07-14] MEDS ORDERED: TRAMADOL HCL 50 MG TAB PO ONE (10:59)
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
== END 2018-07-14 11:52 | disposition home or self-care (01) | DRG 191 ==
LOC: ER 19:07 → ERHOLD 22:36 → 4TH 23:31 → OBSVTOIN 07-12 07:37
PROVIDERS: ADMIT Hospitalist; ATTEND Family Medicine
DX: J44.1 Chronic obstructive pulmonary disease with (acute) exacerbation (principal); F31.60 Bipolar disorder, current episode mixed, unspecified; B19.10 Unspecified viral hepatitis B without hepatic coma; F17.210 Nicotine dependence, cigarettes, uncomplicated; R09.02 Hypoxemia; R06.82 Tachypnea, not elsewhere classified; Z77.098 Contact with and (suspected) exposure to other hazardous, chiefly nonmedicinal, chemicals; G25.81 Restless legs syndrome; F41.9 Anxiety disorder, unspecified
CPT/HCPCS: 36415; 71045; 71046; 80048; 80053; 81003; 81015; 83735; 83880; 84100; 84484; 85025; 87040; 87070; 87086; 87088; 87205; 93005; 96374; 99285; G0378; J0696; J1650; J2930; J7512; J7605

== ENCOUNTER 2018-09-29 15:13 | Inpatient (IN) | payer OTHER ==
[2018-09-29] MEDS ORDERED: FENTANYL CITR 100 MCG/2 ML ONE (15:30)
[2018-09-29] MEDS ORDERED: ONDANSETRON 4 MG/2 ML VIAL ONE (15:30)
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
[2018-09-29 16:12] LABS: Absolute Lymphocytes (CBC) 0.6 K/uL (0.7-4.9); Absolute Monocytes 0.3 K/uL (0.1-1.3); Absolute Neutrophil 4.2 K/uL (1.8-8.0); Basophils % 0.5 % (0-1.3); Eosinophils % 0.8 % (0-4.4); Hematocrit 41.8 % (36.0-45.0); Lymphocytes % 11.9 % (15.3-44.8); MPV 8.9 fL (7.6-11.3); Monocytes % 5.8 % (3.3-12.3); RBC Red Blood Cell Count 4.43 M/uL (3.86-4.86)
[2018-09-29 16:27] LABS: Protime INR 1.03
[2018-09-29 16:33] LABS: ALT/SGPT 25 U/L (12-78); AST/SGOT 18 U/L (15-37); Albumin 3.4 g/dL (3.4-5.0); Alkaline Phosphatase 63 U/L (45-117); BUN Blood Urea Nitrogen 12 mg/dL (7-18); Bicarbonate 36 mmol/L (21-32); Bilirubin Direct 0.1 mg/dL (0-0.2); Bilirubin Total 0.3 mg/dL (0.2-1.0); Glucose Level 102 mg/dL (74-106); Magnesium 1.9 mg/dL (1.8-2.4); NT PRO-BNP 32 pg/mL (<125); Potassium 4.3 mmol/L (3.5-5.1); Protein, Total 6.6 g/dL (6.4-8.2); Sodium Level 140 mmol/L (136-145); Troponin (Emerg Dept Use Only) < 0.02 ng/mL (0.0-0.045)
[2018-09-29] MEDS ORDERED: LEVALBUTEROL 1.25 MG/3 ML NEB ONE (16:39)
--- NOTE | 2018-09-29 16:46 | EKG ---
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
--- NOTE | 2018-09-29 16:55 | RAD REPORT ---
EXAM DESCRIPTION: Joshua Single View09/29/2018 4:45 pm CLINICAL HISTORY: Chest pain COMPARISON: July 2018 FINDINGS: The lungs appear clear of acute infiltrate. The heart is normal size IMPRESSION: No acute abnormalities displayed
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
[2018-09-29] MEDS ORDERED: MORPHINE 4 MG/ML SYR ONE (17:58)
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
--- NOTE | 2018-09-29 18:31 | RAD REPORT ---
EXAM DESCRIPTION: RAD - Knee Left 3 View - 09/29/2018 6:16 pm CLINICAL HISTORY: Left knee pain status post injury FINDINGS: Examination is somewhat limited as the knee was not extended for the frontal and oblique v iews. No gross fracture or dislocation seen If patient continues have symptoms to suggest an occult fracture, ligamentous or meniscal injury then MRI would be recommended Calcific density adjacent to the medial femur may be the sequela of old trauma
--- NOTE | 2018-09-29 20:27 | RAD REPORT ---
EXAM DESCRIPTION: MRI - Brain Wo Cont - 09/29/2018 7:58 pm CLINICAL HISTORY: Syncope COMPARISON: September [address] TECHNIQUE: Axial, sagittal, and coronal magnetic resonance images of the brain were obtained. FINDINGS: Mild signal periventricular, deep and subcortical white matter likely represent ischemic c hanges secondary small vessel disease Diffusion-weighted/ADC mapping does not reveal evidence of acute infarction. The ventricles are normal caliber. An extra-axial fluid collection is not noted. Chronic sinusitis. Signal in the mastoids may indicate chronic mastoiditis. IMPRESSION: No acute abnormality displayed
[2018-09-29] MEDS ORDERED: ALBUTEROL 2.5 MG/3 ML NEB SOL NEB PRN (20:32)
[2018-09-29] MEDS ORDERED: ACETAMINOPHEN 500 MG TAB PO PRN (20:32)
[2018-09-29] MEDS ORDERED: ONDANSETRON 4 MG/2 ML VIAL IV PRN (20:32)
[2018-09-29] MEDS ORDERED: NA CHLORIDE 0.9% 1,000 ML IV SCH (20:32)
[2018-09-29] MEDS ORDERED: LORAZEPAM 0.5 MG TABLET PO PRN (20:32)
[2018-09-29] MEDS: HYDROCODONE/APAP 7.5/325 MG TAB PO PRN (20:52)
[2018-09-29] MEDS ORDERED: HYDROCODONE/APAP 7.5/325 MG TAB ONE (20:57)
[2018-09-29 21:32] LABS: Thyroid Stimulating Hormone 3.11 uIU/mL (0.360-3.740)
--- NOTE | 2018-09-29 21:50 | RAD REPORT ---
EXAM DESCRIPTION: USCarotid Artery [id number]/28/2018 9:37 pm CLINICAL HISTORY: Syncope COMPARISON: None FINDINGS: The velocity of the right internal carotid artery equals 60 cm/sec. The right ICA/CCA rati o 0.9 The velocity of the left internal carotid artery equals 73 cm/sec. The left ICA/CCA 1 Mild plaque is present within the carotid arteries. The vertebral arteries demonstrate antegrade flow IMPRESSION: Mild plaque within the carotid arteries without evidence of a hemodynamically significan t stenosis NASCET criteria used. Mild 0-49% stenosis Moderate 50-69% stenosis Severe 70-99% stenosis
[2018-09-29 21:59] VITALS: BMI 53.0
[2018-09-29 22:33] LABS: CKMB Creatine Kinase MB 1.7 ng/mL (0.3-3.6); Creatine Phosphokinase 103 U/L (26-192); Troponin I < 0.02 ng/mL (0.0-0.045)
[2018-09-29] MEDS: predniSONE 20 MG TAB PO SCH (22:52)
[2018-09-29] MEDS: ARFORMOTEROL TARTRATE 15 MCG/2 ML VIAL.NEB NEB SCH (23:32)
[2018-09-29] MEDS: TRAMADOL HCL 50 MG TAB PO PRN (23:47)
[2018-09-30 00:26] LABS: Urine Appearance CLOUDY; Urine Bilirubin NEGATIVE (NEG); Urine Blood TRACE (NEG); Urine Color DK YELLOW; Urine Glucose NEGATIVE (NEG); Urine Protein TRACE (NEG); Urine Specific Gravity >=1.030 (1.005-1.030); Urine Urobilinogen 0.2 mg/dL (0.2-1.0); Urine pH 5.5 (5.0-7.0)
[2018-09-30 00:28] LABS: Urine Microscopic Reflex ORDER UMIC
[2018-09-30 00:31] LABS: Barbiturates NEGATIVE (NEGATIVE); Benzodiazepines NEGATIVE (NEGATIVE); Cocaine NEGATIVE (NEGATIVE); METHAMPHETAM NEGATIVE (NEGATIVE); Methadone NEGATIVE (NEGATIVE); Opiates POSITIVE (NEGATIVE); Phencyclidine NEGATIVE (NEGATIVE); THC Cannibis NEGATIVE (NEGATIVE)
[2018-09-30 01:48] LABS: Urine Bacteria >50 /HPF (<20); Urine Culture Reflex Order REFLEXED; Urine RBC <5 /HPF (NONE SEEN)
[2018-09-30] MEDS: PANTOPRAZOLE 40MG TABLET PO SCH (05:40)
[2018-09-30] MEDS: HYDROCODONE/APAP 7.5/325 MG TAB PO PRN ×3 (05:40→20:42)
[2018-09-30 07:35] LABS: Absolute Lymphocytes (CBC) 0.6 K/uL (0.7-4.9); Absolute Monocytes 0.2 K/uL (0.1-1.3); Absolute Neutrophil 4.3 K/uL (1.8-8.0); Basophils % 0.3 % (0-1.3); Hematocrit 40.8 % (36.0-45.0); RBC Red Blood Cell Count 4.32 M/uL (3.86-4.86)
[2018-09-30 07:54] LABS: Albumin 3.4 g/dL (3.4-5.0); Bilirubin Total 0.5 mg/dL (0.2-1.0); Magnesium 1.9 mg/dL (1.8-2.4); Potassium 4.8 mmol/L (3.5-5.1); Protein, Total 6.9 g/dL (6.4-8.2)
[2018-09-30 07:56] LABS: CKMB Creatine Kinase MB 1.5 ng/mL (0.3-3.6); Creatine Phosphokinase 89 U/L (26-192); Troponin I < 0.02 ng/mL (0.0-0.045)
[2018-09-30] MEDS: ARFORMOTEROL TARTRATE 15 MCG/2 ML VIAL.NEB NEB SCH ×2 (08:22→20:40)
--- NOTE | 2018-09-30 08:40 | RAD REPORT ---
EXAM DESCRIPTION: RAD - Chest Pa And Lat (2 Views) - 09/30/2018 6:33 am CLINICAL HISTORY: COPD, shortness of breath COMPARISON: September 29 TECHNIQUE: PA and lateral views of the chest were obtained. FINDINGS: The lungs are underinflated. Lung markings are similar to the comparison. No progressive l nena parenchymal process. Scarring and atelectasis are noted similar to comparison. Heart size is nor mal and central vasculature is within normal limits. No pleural effusion or pneumothorax seen. Old rib trauma noted on the left. No aortic abnormality. IMPRESSION: Chronic interstitial lung disease and atelectasis noted on this shallow inspiration exam . No new or progressive finding from prior day imaging.
[2018-09-30] MEDS: predniSONE 20 MG TAB PO SCH ×2 (09:14→20:42)
[2018-09-30] MEDS: TRAMADOL HCL 50 MG TAB PO PRN ×2 (09:16→17:57)
[2018-09-30 10:17] LABS: Urine White Blood Cell Casts OK
[2018-09-30 10:18] LABS: Blood Morphology Comment NOT SEEN (NOT SEEN); Platelet Estimate DECR
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
[2018-09-30] MEDS: ROPINIROLE HCL 0.25 MG TAB PO SCH ×2 (13:43→20:42)
[2018-09-30] MEDS: ENOXAPARIN 30 MG/0.3 ML SQ SCH (17:11)
[2018-09-30] MEDS: MONTELUKAST 10 MG TAB PO SCH (17:58)
[2018-09-30] MEDS: BUSPIRONE HCL 15 MG TABLET PO SCH (20:42)
[2018-10-01] MEDS: HYDROCODONE/APAP 7.5/325 MG TAB PO PRN ×3 (02:26→20:59)
[2018-10-01 05:17] LABS: Absolute Lymphocytes (CBC) 0.7 K/uL (0.7-4.9); Absolute Monocytes 0.2 K/uL (0.1-1.3); Absolute Neutrophil 4.5 K/uL (1.8-8.0); Basophils % 0.1 % (0-1.3); Eosinophils % 0.1 % (0-4.4); Hematocrit 38.2 % (36.0-45.0); Lymphocytes % 12.1 % (15.3-44.8); MPV 9.2 fL (7.6-11.3); Monocytes % 4.5 % (3.3-12.3); RBC Red Blood Cell Count 4.05 M/uL (3.86-4.86)
[2018-10-01] MEDS: LEVOTHYROXINE SOD 0.025 MG TAB PO SCH (05:40)
[2018-10-01] MEDS: PANTOPRAZOLE 40MG TABLET PO SCH (05:40)
[2018-10-01 05:42] LABS: ALT/SGPT 26 U/L (12-78); AST/SGOT 15 U/L (15-37); Albumin 3.4 g/dL (3.4-5.0); Alkaline Phosphatase 56 U/L (45-117); BUN Blood Urea Nitrogen 15 mg/dL (7-18); Bicarbonate 37 mmol/L (21-32); Bilirubin Total 0.4 mg/dL (0.2-1.0); Glucose Level 123 mg/dL (74-106); Magnesium 2.1 mg/dL (1.8-2.4); Potassium 4.2 mmol/L (3.5-5.1); Protein, Total 6.7 g/dL (6.4-8.2); Sodium Level 140 mmol/L (136-145)
[2018-10-01] MEDS: ARFORMOTEROL TARTRATE 15 MCG/2 ML VIAL.NEB NEB SCH ×2 (07:49→20:14)
[2018-10-01] MEDS: ROPINIROLE HCL 0.25 MG TAB PO SCH ×3 (08:21→20:59)
[2018-10-01] MEDS: BUSPIRONE HCL 15 MG TABLET PO SCH ×2 (08:21→20:58)
[2018-10-01] MEDS: TRAMADOL HCL 50 MG TAB PO PRN (08:21)
[2018-10-01] MEDS: MONTELUKAST 10 MG TAB PO SCH (08:21)
[2018-10-01] MEDS: ARIPiprazole 5 MG TAB PO SCH (08:21)
[2018-10-01] MEDS: DULOXETINE 30 MG CAP PO SCH (08:21)
[2018-10-01] MEDS: predniSONE 20 MG TAB PO SCH ×2 (08:22→20:59)
[2018-10-01] MEDS: DOCUSATE NA 100 MG CAP PO SCH (09:00)
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
[2018-10-01] MEDS: LACTULOSE 20 GM/30 ML UCUP PO PRN (13:51)
[2018-10-01] MEDS: ENOXAPARIN 30 MG/0.3 ML SQ SCH (16:36)
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
[2018-10-01] MEDS: DESYREL PO PRN (21:30)
[2018-10-02 04:32] LABS: Albumin 3.5 g/dL (3.4-5.0); Bilirubin Total 0.4 mg/dL (0.2-1.0); Magnesium 2.1 mg/dL (1.8-2.4); Protein, Total 6.9 g/dL (6.4-8.2)
[2018-10-02 04:41] LABS: Absolute Lymphocytes (CBC) 0.6 K/uL (0.7-4.9); Absolute Monocytes 0.2 K/uL (0.1-1.3); Absolute Neutrophil 4.9 K/uL (1.8-8.0); Basophils % 0.1 % (0-1.3); Hematocrit 38.9 % (36.0-45.0); Lymphocytes % 10.8 % (15.3-44.8); MPV 9.2 fL (7.6-11.3); Monocytes % 2.9 % (3.3-12.3); RBC Red Blood Cell Count 4.12 M/uL (3.86-4.86)
[2018-10-02] MEDS: PANTOPRAZOLE 40MG TABLET PO SCH (06:11)
[2018-10-02] MEDS: LEVOTHYROXINE SOD 0.025 MG TAB PO SCH (06:11)
[2018-10-02] MEDS: ARFORMOTEROL TARTRATE 15 MCG/2 ML VIAL.NEB NEB SCH ×2 (07:40→19:40)
[2018-10-02] MEDS ORDERED: DRISDOL (VITAMIN D=ERGOCALCIFEROL) 50000 UNIT CAP PO SCH (09:00)
[2018-10-02] MEDS ORDERED: CEFTRIAXONE/SWI 1gm 1 GM/10 ML SYR IV SCH (09:00)
[2018-10-02] MEDS ORDERED: REGADENOSON 0.4 MG/5 ML SYR IV ONE (10:14)
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
[2018-10-02] MEDS: ARIPiprazole 5 MG TAB PO SCH (12:23)
[2018-10-02] MEDS: TRAMADOL HCL 50 MG TAB PO PRN ×2 (12:23→20:16)
[2018-10-02] MEDS: ROPINIROLE HCL 0.25 MG TAB PO SCH ×3 (12:23→20:15)
[2018-10-02] MEDS: DULOXETINE 30 MG CAP PO SCH (12:23)
[2018-10-02] MEDS: predniSONE 20 MG TAB PO SCH ×2 (12:24→20:14)
[2018-10-02] MEDS: MONTELUKAST 10 MG TAB PO SCH (12:24)
[2018-10-02] MEDS: BUSPIRONE HCL 15 MG TABLET PO SCH ×2 (12:24→20:15)
[2018-10-02] MEDS: DOCUSATE NA 100 MG CAP PO SCH (12:25)
--- NOTE | 2018-10-02 13:24 | RAD REPORT ---
EXAM DESCRIPTION: NM - Rest Stress Cardiac Imaging - 10/02/2018 1:11 pm CLINICAL HISTORY: Chest pain COMPARISON: None. TECHNIQUE: The patient was administered approximately 10 mCi of Tc 99m Sestamibi prior to resting SP ECT imaging of the heart. The patient was then administered approximately 30 mCi of Tc 99m Sestamibi following exercise or pharmacologic stress. Multiplanar SPECT images were reviewed. FINDINGS: The end diastolic volume is 88 ml, the end systolic volume is 34 ml, and the ejection frac tion is 61 %. Patient has a moderately large fixed defect involving the inferolateral wall base and midportion. The re is further diminished activity in the inferolateral wall near the apex that is present only on the stress imaging. Septum, anterior wall and remaining portions of the lateral wall show no ischemia or scarring changes . IMPRESSION: Ashlie-infarct ischemia involving the inferolateral wall near the apex. Moderately large defect inferolateral wall mid and base portions favored to be scarring rather than d iaphragm attenuation artifact. Ventricular volumes and ejection fraction are still normal range.
[2018-10-02] MEDS: ENOXAPARIN 30 MG/0.3 ML SQ SCH (17:00)
[2018-10-02] MEDS: HYDROCODONE/APAP 7.5/325 MG TAB PO PRN (17:04)
[2018-10-02] MEDS: IPRATROPIUM BROM 0.5MG/2.5ML NEB PRN (19:40)
[2018-10-02] MEDS: SMZ./TMP. 800/160 MG TABLET PO SCH (20:14)
[2018-10-02] MEDS: DESYREL PO PRN (20:15)
[2018-10-03] MEDS: HYDROCODONE/APAP 7.5/325 MG TAB PO PRN ×3 (00:18→18:18)
[2018-10-03] MEDS: PANTOPRAZOLE 40MG TABLET PO SCH (07:33)
[2018-10-03] MEDS: LEVOTHYROXINE SOD 0.025 MG TAB PO SCH (07:33)
[2018-10-03] MEDS: ARFORMOTEROL TARTRATE 15 MCG/2 ML VIAL.NEB NEB SCH ×2 (07:46→20:00)
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
[2018-10-03] MEDS: DULOXETINE 30 MG CAP PO SCH (08:16)
[2018-10-03] MEDS: MONTELUKAST 10 MG TAB PO SCH (08:16)
[2018-10-03] MEDS: SMZ./TMP. 800/160 MG TABLET PO SCH ×2 (08:17→23:14)
[2018-10-03] MEDS: ARIPiprazole 5 MG TAB PO SCH (08:17)
[2018-10-03] MEDS: DOCUSATE NA 100 MG CAP PO SCH (08:17)
[2018-10-03] MEDS: predniSONE 20 MG TAB PO SCH ×2 (08:18→23:14)
[2018-10-03] MEDS: ROPINIROLE HCL 0.25 MG TAB PO SCH ×3 (08:18→23:14)
[2018-10-03] MEDS: BUSPIRONE HCL 15 MG TABLET PO SCH ×2 (08:19→23:14)
--- NOTE | 2018-10-03 10:47 | PN ---
Ms. Garcia remains asymptomatic. She has a Cardiolite stress test that indicated scar and ischemia. T hese findings are not in agreement with the findings on echocardiography, electrocardiography, and hi story. I have recommended we do a cardiac cath, possible stent to see what the situation is with her coronary arteries. 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 She seems to understand the procedure, potential benefits, indications, risks, and agrees to renee ewing tomorrow. We will try the radial artery first and keep the femoral artery approach in reserve if radial is unsuccessful. LEO Voice ID: [id number] Report ID: [id number]
--- NOTE | 2018-10-03 10:57 | ECHO ---
HEIGHT: 5 ft 1 in WEIGHT: 280 lb 9.6 oz DATE OF STUDY: 09/29/[address]: Lester Youssef DO 2-DIMENSIONAL: YES M.MODE: YES DOPPLER: YES COLOR FLOW: YES TDS: YES PORTABLE: DEFINITY: BUBBLE STUDY: DIAGNOSIS: SYNCOPE CARDIAC HISTORY: CATHERIZATION: NO SURGERY: NO PROSTHETIC VALVE: NO PACEMAKER: NO MEASUREMENTS (cm) DIASTOLIC (NORMALS) SYSTOLIC (NORMALS) IVSd 1.3 (0.6-1.2) LA Diam 4.2 (1.9-4.0) LVEF 56% LVIDd 3.2 (3.5-5.7) LVIDs 2.3 (2.0-3.5) %FS 28% LVPWd 1.1 (0.6-1.2) Ao Diam 2.7 (2.0-3.7) 2 DIMENSIONAL ASSESSMENT: RIGHT ATRIUM: NORMAL LEFT ATRIUM: DILATED RIGHT VENTRICLE: NORMAL LEFT VENTRICLE: NORMAL TRICUSPID VALVE: NORMAL MITRAL VALVE: NORMAL PULMONIC VALVE: NORMAL AORTIC VALVE: NORMAL PERICARDIAL EFFUSION: NONE AORTIC ROOT: NORMAL LEFT VENTRICULAR WALL MOTION: NORMAL DOPPLER/COLOR FLOW: IMPAIRED LEFT VENTRICULAR RELAXATION. COMMENTS: NORMAL LEFT VENTRICULAR EJECTION FRACTION. DILATED LEFT ATRIUM. IMPAIRED LEFT VENTRICULAR RELAXATION. TECHNOLOGIST: LUIS EDUARDO HOLT
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
[2018-10-03] MEDS: ENOXAPARIN 30 MG/0.3 ML SQ SCH (16:55)
[2018-10-03] MEDS: TRAMADOL HCL 50 MG TAB PO PRN (23:14)
[2018-10-04] MEDS: LEVOTHYROXINE SOD 0.025 MG TAB PO SCH (02:44)
[2018-10-04] MEDS: PANTOPRAZOLE 40MG TABLET PO SCH (02:44)
[2018-10-04] MEDS ORDERED: NA CHLORIDE 0.9% 1,000 ML ONE (07:02)
[2018-10-04] MEDS ORDERED: HEPA 1000U/500MLS 1,000 UNIT/500 ML BAG IV ONE ×2 (07:39→10:00)
[2018-10-04] MEDS: ARFORMOTEROL TARTRATE 15 MCG/2 ML VIAL.NEB NEB SCH ×2 (08:13→20:00)
[2018-10-04] MEDS: ROPINIROLE HCL 0.25 MG TAB PO SCH ×3 (09:00→20:07)
[2018-10-04] MEDS ORDERED: HEPARIN 5000 UNIT/ML 1 ML VIAL ONE (10:01)
[2018-10-04] MEDS ORDERED: MIDAZOLAM HCL 2 MG/2 ML INJ ONE ×2 (10:01→10:10)
[2018-10-04] MEDS ORDERED: NICARDIPINE HCL 25 MG/10 ML IV ONE (10:01)
[2018-10-04] MEDS ORDERED: FENTANYL CITR 100 MCG/2 ML ONE (10:01)
[2018-10-04] MEDS ORDERED: ATROPINE SULF 1 MG/10 ML SYR IV ONE (10:02)
[2018-10-04] MEDS ORDERED: NA CHLORIDE 0.9% 0 ML ONE (10:02)
[2018-10-04] MEDS: HYDROCODONE/APAP 7.5/325 MG TAB PO PRN ×2 (10:58→20:09)
[2018-10-04] MEDS ORDERED: HYDROCODONE/APAP 7.5/325 MG TAB ONE (11:08)
[2018-10-04] MEDS ORDERED: NA CHLORIDE 0.9% 1,000 ML IV SCH (13:00)
[2018-10-04] MEDS ORDERED: NITROGLYCERIN 0.4 MG/TAB SL PRN (13:00)
[2018-10-04] MEDS ORDERED: ACETAMINOPHEN 325 MG TABLET PO PRN (13:00)
[2018-10-04] MEDS: BUSPIRONE HCL 15 MG TABLET PO SCH ×2 (14:12→20:07)
[2018-10-04] MEDS: ARIPiprazole 5 MG TAB PO SCH (14:13)
[2018-10-04] MEDS: predniSONE 20 MG TAB PO SCH ×2 (14:14→20:07)
[2018-10-04] MEDS: DULOXETINE 30 MG CAP PO SCH (14:14)
[2018-10-04] MEDS: MONTELUKAST 10 MG TAB PO SCH (14:14)
[2018-10-04] MEDS: DOCUSATE NA 100 MG CAP PO SCH (14:14)
[2018-10-04] MEDS: SMZ./TMP. 800/160 MG TABLET PO SCH ×2 (14:14→20:07)
[2018-10-04] MEDS: ENOXAPARIN 30 MG/0.3 ML SQ SCH (17:48)
--- NOTE | 2018-10-04 17:58 | OP ---
Surgeon: Berny Walsh MD Procedures: Left heart catheterization, coronary left ventricular angiography. Findings: Normal left ventricular ejection fraction. Normal pressures. Normal left ventricular wal l motion. Normal coronary arteries. Completely normal study. Indication For The Test: Abnormal Cardiolite stress test and syncope and chest pain. Procedure In Detail: The patient was brought to the cardiac medical lab technologist in a fasting state, sedated wit h Versed and fentanyl, titrated to an adequate level of sedation. The right radial approach was used . After a prep and drape, the area around the right radial artery was anesthetized using 1% lidocain e. The artery was entered using a 21-gauge needle. A 0.021 inch diameter guidewire was used to evelyn ulate the artery and a modified Seldinger technique allowed us to place a 6-[place] Terumo radial moraels th. It was flushed, and she was given a radial cocktail consisting of nicardipine, heparin, nitrogly cerin. We guided a TIG catheter, 6-[place] Terumo into the ascending aorta using fluoroscopy and a [place] Glidewire with a short radius J-tip. We used the TIG catheter to cannulate left coronary, right coronary, and left ventricle. At the end of the procedure, the wire was withdrawn over a J-wire, an d we were able to remove the sheath and close the arteriotomy using a TR band. Cement Finisher Apprentice: Che Frederick. Estimated Blood Loss: 5 cc. Complications: None. NILAY/VIDHI Voice ID: [id number] Report ID: [id number]
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
[2018-10-04] MEDS: IPRATROPIUM BROM 0.5MG/2.5ML NEB PRN (20:30)
[2018-10-05] MEDS: HYDROCODONE/APAP 7.5/325 MG TAB PO PRN (03:37)
[2018-10-05] MEDS: LACTULOSE 20 GM/30 ML UCUP PO PRN (03:37)
[2018-10-05] MEDS: LEVOTHYROXINE SOD 0.025 MG TAB PO SCH (05:45)
[2018-10-05] MEDS: PANTOPRAZOLE 40MG TABLET PO SCH (05:45)
[2018-10-05] MEDS: ARFORMOTEROL TARTRATE 15 MCG/2 ML VIAL.NEB NEB SCH (07:35)
[2018-10-05 08:33] VITALS: O2SAT 92
[2018-10-05] MEDS: DULOXETINE 30 MG CAP PO SCH (09:10)
[2018-10-05] MEDS: SMZ./TMP. 800/160 MG TABLET PO SCH (09:10)
[2018-10-05] MEDS: ROPINIROLE HCL 0.25 MG TAB PO SCH (09:11)
[2018-10-05] MEDS: DOCUSATE NA 100 MG CAP PO SCH (09:11)
[2018-10-05] MEDS: predniSONE 20 MG TAB PO SCH (09:11)
[2018-10-05] MEDS: MONTELUKAST 10 MG TAB PO SCH (09:11)
[2018-10-05] MEDS: ARIPiprazole 5 MG TAB PO SCH (09:45)
[2018-10-05] MEDS: BUSPIRONE HCL 15 MG TABLET PO SCH (09:46)
[2018-10-05 12:32] VITALS: BP 165/95; TEMP 98
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
--- NOTE | 2018-10-06 00:51 | PN ---
Date of Progress Note: 10/04/2018 The patient was admitted to Dr. Cortez on 10/03/2018. Dr. Walsh performed a heart catheterization on 10/04/2018 for positive Cardiolite. She had normal coronaries. Today, she is in normal sinus rhyth m. No cardiac complaint. Her right wrist entry site for the catheterization is intact without any h ematoma. She has good distal pulses. She can go home whenever it is okay with Dr. Cortez. JAGRUTI/[email or web address] Voice ID: [id number] Report ID: [id number]
--- NOTE | 2018-10-06 07:18 | EEG ---
CHART: [id number] TEST ID#: [id number] DATE OF STUDY: 10/04/2018 THE EEG WAS RECORDED PORTABLE IN THE PATIENTS ROOM ON A 17 CHANNEL MACHINE. ELECTRODES WERE APPLIED IN THE USUAL MANNER USING THE INTERNATIONAL 10-20 SYSTEM. THE WAKING BACKGROUND RHYTHM IN THIS RECORD CONSISTS OF WELL DEVELOPED AND WELL ORGANIZED WAVES OF 9 HZ., MAXIMAL IN THE POSTERIOR HEAD REGIONS WHICH ATTENUATE NORMALLY WITH EYE OPENING. LOW-VOLTAGE 18-22 HZ ACTIVITY MIXED WITH OCASIONAL MODERATE VOLTAGE 1.15-3 HZ ACTIVITY IS EXPRESSED IN THE FRONTAL REGIONS. THERE ARE NO FOCAL OR LATERALIZING FEATURES. NO EPILEPTIFORM ACTIVITY APPEARS. SLEEP DID NOT OCCUR. HYPERVENTILATION WAS NOT PERFORMED. PHOTIC STIMULATION PRODUCED POOR DRIVING BILATERALLY. IMPRESSION: THIS IS A MILDLY ABNORMAL EEG DUE TO A MILDLY SLOW BACKGROUND. THIS IS A NON-SPECIFIC FINDING INDICATING A MIILD DIFFUSE DISTURBANCE IN CEREBRAL FUNCTION.
== END 2018-10-05 14:10 | disposition home or self-care (01) | DRG 287 ==
LOC: ER 15:13 → ERHOLD 18:01 → 4TH 21:26 → OBSVTOIN 10-03 12:46
PROVIDERS: ADMIT Family Medicine; ATTEND Family Medicine
PROC: 4A023N7 Measurement of Cardiac Sampling and Pressure, Left Heart, Percutaneous Approach (ICD-10-PCS; principal; 2018-10-04)
PROC: B211YZZ Fluoroscopy of Multiple Coronary Arteries using Other Contrast (ICD-10-PCS; 2018-10-04)
PROC: B215YZZ Fluoroscopy of Left Heart using Other Contrast (ICD-10-PCS; 2018-10-04)
DX: R55 Syncope and collapse (principal); N39.0 Urinary tract infection, site not specified; J44.1 Chronic obstructive pulmonary disease with (acute) exacerbation; Z68.43 Body mass index [BMI] 50.0-59.9, adult; B96.20 Unspecified Escherichia coli [E. coli] as the cause of diseases classified elsewhere; Z99.81 Dependence on supplemental oxygen; R09.02 Hypoxemia; Z87.891 Personal history of nicotine dependence; E66.9 Obesity, unspecified; E03.9 Hypothyroidism, unspecified; F31.9 Bipolar disorder, unspecified; S30.1XXA Contusion of abdominal wall, initial encounter; V47.5XXA Car driver injured in collision with fixed or stationary object in traffic accident, initial encounter; Y93.I9 Activity, other involving external motion; Y92.410 Unspecified street and highway as the place of occurrence of the external cause
CPT/HCPCS: 36415; 70450; 70551; 71045; 71046; 71260; 72125; 74177; 78452; 80048; 80053; 80061; 80076; 80307; 80320; 81003; 81015; 82550; 82553; 83735; 83880; 84439; 84443; 84484; 85025; 85610; 86850; 86900; 86901; 87077; 87086; 87088; 87186; 93005; 93017; 93306; 93458; 93880; 94640; 95816; 96374; 96375; 97116; 97161; 97530; 99285; A9500; C1893; G0378; J0583; J0696; J1644; J1650; J2250; J2405; J2785; J3010; J7030; J7512; J7605; Q9967

== ENCOUNTER 2020-07-22 11:01 | Emergency (ER) | payer OTHER ==
[2020-07-22 11:13] LABS: Absolute Lymphocytes (CBC) 1.4 K/uL (0.7-4.9); Basophils % 0.9 % (0-1.3); Lymphocytes % 25.1 % (15.3-44.8); MPV 8.7 fL (7.6-11.3); RBC Red Blood Cell Count 4.65 M/uL (3.86-4.86)
[2020-07-22 11:17] LABS: Protime INR 0.91
[2020-07-22 11:37] LABS: ALT/SGPT 24 U/L (12-78); AST/SGOT 14 U/L (15-37); Albumin 3.5 g/dL (3.4-5.0); Alkaline Phosphatase 76 U/L (45-117); BUN Blood Urea Nitrogen 22 mg/dL (7-18); Bicarbonate 33 mmol/L (21-32); Bilirubin Direct < 0.1 mg/dL (0-0.2); Bilirubin Total 0.3 mg/dL (0.2-1.0); Glucose Level 96 mg/dL (74-106); Magnesium 2.1 mg/dL (1.8-2.4); NT PRO-BNP 29 pg/mL (<125); Potassium 4.4 mmol/L (3.5-5.1); Protein, Total 7.4 g/dL (6.4-8.2); Sodium Level 141 mmol/L (136-145); Troponin (Emerg Dept Use Only) < 0.02 ng/mL (0.0-0.045)
[2020-07-22] MEDS ORDERED: predniSONE 20 MG TAB ONE (11:52)
[2020-07-22] MEDS ORDERED: LEVALBUTEROL 1.25 MG/3 ML NEB ONE ×2 (11:52→15:48)
--- NOTE | 2020-07-22 11:58 | RAD REPORT ---
EXAM DESCRIPTION: CT - Thorax W/ Con CLINICAL HISTORY: Chest pain sob COMPARISON: No comparisons FINDINGS: The lungs are clear. No pleural thickening or pleural effusion. No pneumothorax. No axillary, mediastinal or hilar adenopathy. No concerning bony finding. Several old left posterior rib fractures noted. Small masses are present in both adrenal glands, nonspecific but statistically most likely adenomas. Mild fatty liver. All CT scans are performed using dose optimization technique as appropriate and may include automated exposure control or mA/KV adjustment according to patient size. IMPRESSION: No acute intrathoracic abnormality.
[2020-07-22] MEDS ORDERED: ONDANSETRON 4 MG/2 ML VIAL ONE (12:01)
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
--- NOTE | 2020-07-22 12:11 | RAD REPORT ---
EXAM DESCRIPTION: RAD - Chest Single View - 07/22/2020 11:53 am CLINICAL HISTORY: CHEST PAIN Chest pain. COMPARISON: Chest Pa And Lat (2 Views) dated 07/10/2020; Chest Pa And Lat (2 Views) dated 09/30/2018; Chest Single View dated 09/29/2018; Chest Pa And Lat (2 Views) dated 07/13/2018 FINDINGS: Portable technique limits examination quality. The lungs are grossly clear. The heart is normal in size. Old left posterior rib fractures. IMPRESSION: No acute intrathoracic process suspected.
--- NOTE | 2020-07-22 15:03 | EDPHYS ---
Physician Documentation [facility] Name: Cassia Garcia Age: 69 yrs Sex: Female : 1950 Arrival Date: 07/22/2020 Time: 11:02 Bed 4 Private MD: ED Physician Frank García HPI: 07/22 16:30 This 69 yrs old Female presents to ER via EMS with complaints of Chest Pain > kdr 31 y/o. 16:30 The patient or guardian reports chest pain that is located primarily in the substernal kdr area, chest diffusely, The patient c/o pain at the base of her right neck - there is a small module there. She also states that baltazar she coughs, her neck veins pop out and she is concerned that something bad is happening. 19:32 Onset: gradually, yesterday. The pain does not radiate. kdr Historical: - Allergies: 11:09 No Known Allergies; em - PMHx: 11:09 Anxiety; Asthma; Bipolar disorder; COPD; Depression; Psychotic behavior; em - PSHx: 11:09 Hysterectomy; Foot surgery; ; Cholecystectomy; em - Immunization history:: Adult Immunizations up to date. - Social history:: Smoking status: Patient reports the use of cigarette tobacco products, smokes one-half pack cigarettes per day. ROS: 19:33 Constitutional: Negative for fever, chills, and weight loss, Eyes: Negative for injury, kdr pain, redness, and discharge, ENT: Negative for injury, pain, and discharge, Neck: Negative for injury, pain, and swelling, Abdomen/GI: Negative for abdominal pain, nausea, vomiting, diarrhea, and constipation, Back: Negative for injury and pain, : Negative for injury, bleeding, discharge, and swelling, MS/Extremity: Negative for injury and deformity, Skin: Negative for injury, rash, and discoloration, Neuro: Negative for headache, weakness, numbness, tingling, and seizure activity. Psych: Negative for depression, anxiety, suicide ideation, homicidal ideation, and hallucinations, Allergy/Immunology: Negative for hives, rash, and allergies, Endocrine: Negative for neck swelling, polydipsia, polyuria, polyphagia, and marked weight changes, Hematologic/Lymphatic: Negative for swollen nodes, abnormal bleeding, and unusual bruising. 19:33 Cardiovascular: Positive for chest pain, with cough, Negative for edema, orthopnea, palpitations. 19:33 Respiratory: Positive for cough, with no reported sputum, dyspnea on exertion, shortness of breath, wheezing, inspiratory, expiratory. Exam: 19:29 ECG was reviewed by the Attending Physician. kdr 19:33 Constitutional: This is a well developed, well nourished patient who is awake, alert, kdr and in no acute distress. Head/Face: Normocephalic, atraumatic. Eyes: Pupils equal round and reactive to light, extra-ocular motions intact. Lids and lashes normal. Conjunctiva and sclera are non-icteric and not injected. Cornea within normal limits. Periorbital areas with no swelling, redness, or edema. Neck: Trachea midline, no thyromegaly or masses palpated, and no cervical lymphadenopathy. Supple, full range of motion without nuchal rigidity, or vertebral point tenderness. No Meningismus. Chest/axilla: Normal chest wall appearance and motion. Nontender with no deformity. No lesions are appreciated. Cardiovascular: Regular rate and rhythm with a normal S1 and S2. No gallops, murmurs, or rubs. Normal PMI, no JVD. No pulse deficits. Abdomen/GI: Soft, non-tender, with normal bowel sounds. No distension or tympany. No guarding or rebound. No evidence of tenderness throughout. Back: No spinal tenderness. No costovertebral tenderness. Full range of motion. Skin: Warm, dry with normal turgor. Normal color with no rashes, no lesions, and no evidence of cellulitis. 19:33 Respiratory: mild respiratory distress is noted, Respirations: normal, Breath sounds: rales, that are mild, are scattered, are heard diffusely. Vital Signs: 11:02 BP 100 / 54; Pulse 107; Resp 20; Temp 98.9(O); Pulse Ox 95% on 2 lpm NC; Weight 117.93 em kg; Height 5 ft. 1 in. (154.94 cm); Pain 8/10; 12:00 BP 120 / 77; Pulse 92; Resp 16; Pulse Ox 95% on R/A; em 13:00 BP 121 / 52; Pulse 96; Resp 22; Pulse Ox 92% on R/A; em 14:30 BP 98 / 83; Pulse 95; Resp 24; Pulse Ox 94% on R/A; em 15:41 BP 115 / 60; Pulse 93; Resp 26; Pulse Ox 100% on Nebulizer Mask; em 11:02 Body Mass Index 49.12 (117.93 kg, 154.94 cm) em MDM: 15:03 Patient medically screened. kdr 19:33 Data reviewed: vital signs, nurses notes, lab test result(s), EKG, radiologic studies. kdr Counseling: I had a detailed discussion with the patient and/or guardian regarding: the historical points, exam findings, and any diagnostic results supporting the discharge/admit diagnosis, lab results, radiology results, the need for outpatient follow up. 07/22 11:03 Order name: Basic Metabolic Panel; Complete Time: 13:14 em 07/22 11:03 Order name: CBC with Diff; Complete Time: 13:14 em 07/22 11:03 Order name: LFT's; Complete Time: 13:14 em 07/22 11:03 Order name: Magnesium; Complete Time: 13:14 em 07/22 11:03 Order name: NT PRO-BNP; Complete Time: 13:14 em 07/22 11:03 Order name: PT-INR; Complete Time: 13:14 em 07/22 11:03 Order name: Troponin (emerg Dept Use Only); Complete Time: 13:14 07/22 11:03 Order name: XRAY Chest (1 view); Complete Time: 13:14 07/22 11:35 Order name: CT Chest W/ Con; Complete Time: 13:14 [facility] 07/22 14:35 Order name: COVID-19 [facility] 07/22 14:35 Order name: [facility] 07/22 11:03 Order name: EKG; Complete Time: 11:03 em 07/22 11:03 Order name: Cardiac monitoring; Complete Time: 11: em 07/22 11:03 Order name: EKG - Nurse/Tech; Complete Time: 11: em 07/22 11:03 Order name: IV Saline Lock; Complete Time: 11: em 07/22 11:03 Order name: Labs collected and sent; Complete Time: 11: em 07/22 11:03 Order name: O2 Per Protocol; Complete Time: 11: em 07/22 11:03 Order name: O2 Sat Monitoring; Complete Time: 11:03 em EC:29 Rate is 106 beats/min. Rhythm is regular, Sinus tachycardia with No ectopy. QRS [place] is kdr Normal. ME interval is normal. QRS interval is normal. QT interval is normal. Clinical impression: Sinus tachycardia. Administered Medications: 12:02 Drug: Xopenex (3) 1.25 mg Route: Inhalation; em 13:11 Follow up: Response: No adverse reaction; Marked relief of symptoms; Wheezing diminishedem 12:03 Drug: predniSONE 60 mg Route: PO; em 13:10 Follow up: Response: No adverse reaction em 14:00 Not Given (Patient Refused): Zofran (Ondansetron) 4 mg IVP once; over 2 minutes em 15:39 Drug: Xopenex (3) 1.25 mg Route: Inhalation; em Disposition: 07/22/20 15:03 Discharged to Home. Impression: Chest pain on breathing. - Condition is Stable. - Discharge Instructions: Chronic Obstructive Pulmonary Disease Exacerbation, Nonspecific Chest Pain, [id number]. - Prescriptions for Ibuprofen 600 mg Oral Tablet - take 1 tablet by ORAL route every 6 hours As needed take with food; 15 tablet. Keflex 500 mg Oral Capsule - take 1 capsule by ORAL route every 12 hours for 7 days; 14 capsule. Medrol (Van) 4 mg Oral Tablets, Dose Pack - take 1 tablet by ORAL route as directed - follow package instructions; 1 packet. - Medication Reconciliation Form, Thank You Letter form. - Follow up: Private Physician; When: 2 - 3 days; Reason: If symptoms return, Further diagnostic work-up, Recheck today's complaints, Continuance of care, Re-evaluation by your physician. - Problem is new. - Symptoms have improved. Signatures: Dispatcher [employer] EDFrank Cherry MD MD kdr Munoz, Edgar RN RN em Corrections: (The following items were deleted from the chart) 16:32 15:03 07/22/2020 15:03 Discharged to Home. Impression: Chest pain on breathing. em Condition is Stable. Forms are Medication Reconciliation Form, Thank You Letter, Antibiotic Education, Prescription Opioid Use. Follow up: Private Physician; When: 2 - 3 days; Reason: If symptoms return, Further diagnostic work-up, Recheck today's complaints, Continuance of care, Re-evaluation by your physician. Problem is new. Symptoms have improved. kdr
--- NOTE | 2020-07-22 15:03 | ER ---
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 Coronavirus screen: Client denies travel out of the [place] in the last 14 days. Ebola Screen: Patient negative for fever greater than or equal to 101.5 degrees Fahrenheit, and additional compatible Ebola Virus Disease symptoms Patient denies exposure to infectious person. Patient denies travel to an Ebola-affected area in the 21 days before illness onset. No symptoms or risks identified at this time. Initial Sepsis Screen: Does the patient meet any 2 criteria? HR > 90 bpm. Does the patient have a suspected source of infection? No. Patient's initial sepsis screen is negative. Risk Assessment: Do you want to hurt yourself or someone else? Patient reports no desire to harm self or others. Onset of symptoms was July 21, 2020. 11:02 Method Of Arrival: EMS: [facility] em 11:02 Acuity: SAPPHIRE 3 em Historical: - Allergies: 11:09 No Known Allergies; em - PMHx: 11:09 Anxiety; Asthma; Bipolar disorder; COPD; Depression; Psychotic behavior; em - PSHx: 11:09 Hysterectomy; Foot surgery; ; Cholecystectomy; em - Immunization history:: Adult Immunizations up to date. - Social history:: Smoking status: Patient reports the use of cigarette tobacco products, smokes one-half pack cigarettes per day. Screenin: Abuse screen: Denies threats or abuse. Nutritional screening: No deficits noted. em Tuberculosis screening: No symptoms or risk factors identified. Fall Risk None identified. Assessment: 11:02 General: Appears in no apparent distress. uncomfortable, Behavior is calm, cooperative, em appropriate for age. Pain: Complains of pain in anterior aspect of right upper chest Pain radiates to back Pain currently is 8 out of 10 on a pain scale. Quality of pain is described as stabbing, Pain began 1 day ago. Neuro: Level of Consciousness is awake, alert, obeys commands, Oriented to person, place, time, situation, Appropriate for age. Cardiovascular: Capillary refill < 3 seconds Patient's skin is warm and dry. Rhythm is sinus rhythm. Respiratory: Airway is patent Respiratory effort is even, Respiratory pattern is regular, Breath sounds with wheezes bilaterally. Derm: Skin is intact, is fragile, is thin, Skin is pink, warm \T\ dry. Musculoskeletal: Capillary refill < 3 seconds, Range of motion: intact in all extremities. 11:30 Reassessment: Dr García at the bedside. sv 13:11 Reassessment: Patient appears in no apparent distress at this time. Patient and/or em family updated on plan of care and expected duration. Pain level reassessed. Patient is alert, oriented x 3, equal unlabored respirations, skin warm/dry/pink. Patient states feeling better. Patient states symptoms have improved. 14:30 Reassessment: Patient appears in no apparent distress at this time. Patient and/or em family updated on plan of care and expected duration. Pain level reassessed. Patient is alert, oriented x 3, equal unlabored respirations, skin warm/dry/pink. 14:57 Reassessment: covid swab sent to lab. em 15:12 Reassessment: Patient appears in no apparent distress at this time. waiting for phone em to charge before being discharged. 15:32 Reassessment: pt having a coughing spell, pt states she takes neb. treatments at home em every 4-6 hours, provider notified, received new medication orders. Vital Signs: 11:02 BP 100 / 54; Pulse 107; Resp 20; Temp 98.9(O); Pulse Ox 95% on 2 lpm NC; Weight 117.93 em kg; Height 5 ft. 1 in. (154.94 cm); Pain 8/10; 12:00 BP 120 / 77; Pulse 92; Resp 16; Pulse Ox 95% on R/A; em 13:00 BP 121 / 52; Pulse 96; Resp 22; Pulse Ox 92% on R/A; em 14:30 BP 98 / 83; Pulse 95; Resp 24; Pulse Ox 94% on R/A; em 15:41 BP 115 / 60; Pulse 93; Resp 26; Pulse Ox 100% on Nebulizer Mask; em 11:02 Body Mass Index 49.12 (117.93 kg, 154.94 cm) em ED Course: 11:00 Initial lab(s) drawn, by me, sent to lab. sv 11:02 Patient arrived in ED. em 11:02 Oscar Arciniega, RN is Primary Nurse. em 11:02 Patient maintains SpO2 saturation greater than 95% on room air. em 11:02 Maintain EMS IV. Dressing intact. Good blood return noted. Site clean \T\ dry. Gauge \T\ em site: 18 G LAC. 11:02 Patient has correct armband on for positive identification. Placed in gown. Bed in low em position. Call light in reach. ekg monitor tech on. Pulse ox on. NIBP on. 11:05 EKG done, by ED staff, reviewed by Frank García MD. mt 11:07 Frank García MD is Attending Physician. kdr 11:08 Triage completed. em 11:09 Arm band placed on. em 11:49 CT Chest W/ Con In Process Unspecified. EDMS 11:53 XRAY Chest (1 view) In Process Unspecified. EDMS 13:56 Assisted to bedside commode. mt 16:32 No provider procedures requiring assistance completed. IV discontinued, intact, em bleeding controlled, No redness/swelling at site. Pressure dressing applied. Administered Medications: 12:02 Drug: Xopenex (3) 1.25 mg Route: Inhalation; em 13:11 Follow up: Response: No adverse reaction; Marked relief of symptoms; Wheezing diminishedem 12:03 Drug: predniSONE 60 mg Route: PO; em 13:10 Follow up: Response: No adverse reaction em 14:00 Not Given (Patient Refused): Zofran (Ondansetron) 4 mg IVP once; over 2 minutes em 15:39 Drug: Xopenex (3) 1.25 mg Route: Inhalation; em Outcome: 15:03 Discharge ordered by . kdr 16:32 Discharged to home via wheelchair. em 16:32 Condition: stable 16:32 Discharge instructions given to patient, Instructed on discharge instructions, follow up and referral plans. Demonstrated understanding of instructions, follow-up care. 16:32 Patient left the ED. em Addendum: 07/25/2020 11:35 Addendum: COVID-19 Result: Negative result given to RN to notify pt. Contacted by: myke Leal RN . Notified pt of negative COVID 19 swab results. Pt advised that even with a negative test result they should remain in isolation until symptom free for 3 days without medication. Pt also advised to return to the ED for worsening symptoms. Signatures: Dispatcher [employer] Mel Moreira, Frank Samuel RN, MD MD kdr Munoz, Edgar, RN RN em [facility], [facility]
[2020-07-22 16:39] VITALS: TEMP 98.9
[2020-07-22 16:45] VITALS: BP 115/60; O2SAT 100
--- NOTE | 2020-07-23 11:31 | EKG ---
Test Date: 2020-07-22 Test Time: 11:05:15 Bacteriologist Industrial: DANNY MEASUREMENT RESULTS: Intervals: Rate: 106 OH: 158 QRSD: 92 QT: 336 QTc: 446 [place]: P: 73 OH: 158 QRS: 90 T: 57 INTERPRETIVE STATEMENTS: Sinus tachycardia Rightward axis Low voltage QRS Borderline ECG Compared to ECG 09/29/2018 16:22:45 Right-axis deviation now present Low QRS voltage now present Electronically Signed On 07-23-20 11:27:21 CDT by Boni Grier
== END 2020-07-22 16:32 | disposition home or self-care (01) ==
LOC: ER 11:01
DX: R07.1 Chest pain on breathing (principal); Z20.828 Contact with and (suspected) exposure to other viral communicable diseases; R05 Cough; J44.9 Chronic obstructive pulmonary disease, unspecified; F17.210 Nicotine dependence, cigarettes, uncomplicated
CPT/HCPCS: 93005; 85025; 80048; 36415; 83735; 85610; 80076; 84484; 83880; 71260; 71045; 99285; U0002; Q9967; J2405; J7512

== ENCOUNTER 2020-09-03 06:49 | Day surgery (SDC) | payer OTHER ==
[2020-09-02 12:39] LABS: Absolute Lymphocytes (CBC) 0.7 K/uL (0.7-4.9); Basophils % 0.5 % (0-1.3); Hematocrit 43.3 % (36.0-45.0); Lymphocytes % 12.3 % (15.3-44.8); MPV 9.2 fL (7.6-11.3); RBC Red Blood Cell Count 4.53 M/uL (3.86-4.86)
[2020-09-02 12:51] LABS: Potassium 4.3 mmol/L (3.5-5.1)
--- NOTE | 2020-09-02 13:54 | RAD REPORT ---
EXAM DESCRIPTION: RAD - Chest Pa And Lat (2 Views) - 09/02/2020 1:25 pm CLINICAL HISTORY: PREOP, SAME DAY SURGERY, BED A, pending soft tissue mass removal right neck COMPARISON: Portable July 22, two view July 12 TECHNIQUE: Frontal and lateral views of the chest were obtained. FINDINGS: The lungs are underinflated. Lung base atelectasis present. Interstitial pattern is not cl early different from the comparison studies. No hilar lymphadenopathy. No failure or volume overload suspected. Heart size is normal and central vasculature is within normal limits. No pleural effusi on or pneumothorax seen. No acute bony finding noted. No aortic abnormality. IMPRESSION: Limited chest examination without acute cardiopulmonary finding. No significant change from comparison.
--- NOTE | 2020-09-03 06:08 | EKG ---
Test Date: 2020-09-02 Test Time: 12:26:12 Fiberglass Bonding Machine Tender: BEATRICE MEASUREMENT RESULTS: Intervals: Rate: 94 CO: 166 QRSD: 80 QT: 342 QTc: 427 [place]: P: 40 CO: 166 QRS: 36 T: 29 INTERPRETIVE STATEMENTS: Normal sinus rhythm with sinus arrhythmia Normal ECG Compared to ECG 07/22/2020 11:05:15 Sinus tachycardia no longer present Right-axis deviation no longer present Electronically Signed On 09-03-20 06:08:02 RAILROAD ACCOUNTANT by Boni Grier
--- OUTSIDE RECORDS SUMMARY | 2020-09-03 06:52 | XMS REPORT | Continuity of Care Document ---
:1950 Author Organization [facility] t Address [address] [place] [address] Care Team Providers Name Role Phone Ben [...] Hematology (test code = PCOMMENT) Appears Adequate Vkxpiutgk7382-73-32 14:37:00 Test Item Value Reference Range Interpretation [...] code 8.9 mg/dL 7.8-10.44 N = CA) Heajefiowm2389-03-52 13:03:00 Test Item Value Reference Range Interpretation [...] UABLD) Small Negative A Urine Source: Urine NllddcJqkaeuycev7585-77-26 13:03:00 Test Item Value Reference Range Interpretation [...] LPF <2+ UAMCS) Urine Source: Urine VoidedCulture, Aidlf6523-95-53 15:24:00 Test Item Value Reference Range Interpretation Comments Culture, Blood (test code = BC) NG5 Culture, Zmzai7832-01-18 15:24:00 Test Item Value Reference Range Interpretation Comments Culture, Blood (test code = BC) NG5 Wkgxvyvcp4729-84-50 06:54:00 Test Item Value Reference Range Interpretation [...] code 9.5 mg/dL 7.8-10.44 N = CA) Nakvdvzesm5102-44-27 06:35:00 Test Item Value Reference Range Interpretation [...] code = BASO#) 0.0 thou/uL 0.0-0.2 N Omdztlegs1668-00-50 07:40:00 Test Item Value Reference Range Interpretation [...] code 8.9 mg/dL 7.8-10.44 N = CA) Wxygvvmxym2762-57-56 07:19:00 Test Item Value Reference Range Interpretation [...] thou/uL 0.0-0.2 N Chemistry - BNP, HgbA1c, BZCl3869-16-81 19:31:00 Test Item Value Reference Range Interpretation Comments Chemistry - BNP, HgbA1c, PTHi 32.8 pg/mL 0-100 N (test code = BNP) Ocqeeqmhr2521-31-50 19:30:00 Test Item Value Reference Range Interpretation Comments Chemistry (test Less than < 0.028 code = TROPI-R) 0.010 ng/mL Reference Ra nge 0. 00 - 0.028 ng/mL Negative 0.029 - 0.29 n g/mL Indeterminate Greater or Equa l to 0.3 ng/mL St rongly suggests OR Prigxqlij2311-29-38 19:28:00 Test Item Value Reference Range Interpretation [...] U/L 8-55 N = ALT) Chemistry - Xnfridj4177-28-76 19:24:00 Test Item Value Reference Range Interpretation Comments Chemistry - Lactate (test code = 0.9 mmol/L 0.5-2.2 N LACTSEP-T) Xczqbceile3719-07-97 19:14:00 Test Item Value Reference Range Interpretation [...] Center Pt Name: JEN DURON [address] [facility]. Phys: Ck Balbuena MD, [id number] : 1950 Age: 69 SEX:F [phone] Exam Date: 12/27/19 Status: REG CLI Acct: [id number] Loc: BICMAMMO Pt Unit #: [id number] Report #: [id number] CC: Ck Balbuena MD MAMMOGRAPHY REPORT Order # Category/Exam [id number] MMO/MAMMO Unilat Diag DDI LT+ALIREZA ([id number]): . Results 2 Left Breast MAMMO Unilat [...] compared to prior imaging studies performed at [facility] on 06/07/2019, 09/12/2019 and 12/27/2019. [...] Reported by: BRYAN CARTER MD Electonically Signed: [id number] Reported By: Bryan Carter MD Electronically Signed Date/Time: 12/27/19 1055 Technologist: JASS DictatedDate/Time: 12/27/19 Transcribed Date/Time: 12/27/19MAMMO Unilat Diag DDI LT+ALIREZA [facility] Pt Name: JEN DURON [address] [facility]. Phys: Ck Balbuena MD [place], [id number] : 1950 Age: 69 SEX:F [phone] Exam Date: 12/27/19 Status: REG CLI Acct: [id number] Loc: DAXA Pt Unit #: [id number] Report #: [id number] CC: Ck Balbuena MD [facility] Order # Category/Exam [id number] MMO/MAMMO Unilat Diag DDI LT+ALIREZA ([id number]): . Results 2 Left Breast MAMMO Unilat [...] compared to prior imaging studies performed at [facility] on 06/07/2019, 09/12/2019 and 12/27/2019. [...] Reported by: BRYAN CARTER MD Electonically Signed: [id number] Reported By: Bryan Carter MD Electronically Signed Date/Time: 12/27/19 1055 Technologist: [email or web address] DictatedDate/Time: 12/27/19 Transcribed Date/Time: 12/27/19US Breast Limited LtDiagnostic Imaging Center Pt Name: JEN DURON [address] [facility]. Phys: Ck Balbuena MD [place], [id number] : 1950 Age: 69 SEX:F [phone] Exam Date: 12/27/19 Status: REG CLI Acct: [id number] Loc: BICMAMMO Pt Unit #: [id number] Report #: [id number] CC: Ck Balbuena MD ULTRASOUND REPORT Order # Category/Exam [id number] ULT/US Breast Limited Lt ([id number]): . Results 2 LEFT BREAST ULTRASOUND: Date: [...] [address] Phys: [place] [address] : 1950 Age: 68 SEX:F [phone] Exam Date: 10/18/19 Status: DEP ER Acct: [id number] Loc: B[facility]ER[facility] Pt Unit #: [id number] Report #: [id number] CC: LACY GRIGSBY MD CATSCAN REPORT Order # Category/Exam [id number] CT/CT Neck Soft Tissue W Con ([id number]): . Results POSTCONTRAST SOFT TISSUE NECK CT [...] 10/18/19 1521 Transcribed Date/Time:[facility] JEN DURON [address] Phys: [place] [address] : 1950 Age: 68 SEX:F [phone] Exam Date: 10/18/19 Status: DEP ER Acct: [id number] Loc: BURERS Pt Unit #: [id number] Report #: [id number] CC: LACY GRIGSBY MD IMAGING SERVICES REPORT Order # Category/Exam [id number] RAD/XR Chest 1 View Portable ([id number]): . Results PORTABLE CHEST: 10/18/19 Comparison is [...] Imaging Center Pt Name: JEN DURON [address] [facility]. Phys: Ck Balbuena MD [place], [id number] : 1950 Age: 68 SEX:F [phone] Exam Date: 09/12/19 Status: REG CLI Acct: [id number] Loc: BICULT Pt Unit #: [id number] Report #: [id number] CC: Ck Balbuena MD ULTRASOUND REPORT Order # Category/Exam [id number] ULT/US Breast Limited ([id number]): . Results 3 LEFT BREAST DIAGNOSTIC ULTRASOUND: [...] Imaging Center Pt Name: JEN DURON [address] [facility]. Phys: Ck Balbuena MD [place], [id number] : 1950 Age: 68 SEX:F [phone] Exam Date: 06/07/19 Status: REG CLI Acct: [id number] [facility] Unit #: [id number] Report #: [id number] CC: Ck Balbuena MD [facility] REPORT Order # Category/Exam [id number] MMO/MAMMO Bilat Diag DDI+ALIREZA ([id number]): . Results 3 Bilateral MAMMO Bilat Diag [...] compared to prior imaging studies performed at [facility] on 06/07/2019, and at [facility] on 09/29/2018. MAMMOGRAM FINDINGS: The breasts are [...] benign finding - short interval follow-up suggested. [facility] will notify the patientof the need for additional imaging services. MAMMOGRAPHY NOTE: 1. A negative mammogram report should not delay a biopsy if a dominant of clinically suspicious mass is present. 2. Approximately 10% to 15% of breast cancers are not detected by mammography. 3. Adenosis and dense breasts may obscure an underlying neoplasm. Reported by: JAVY MULLINS MD Electonically Signed: [id number] Reported By: Javy Mullins MD Electronically Signed Date/Time: 06/07/19 0916 Technologist: JENNIFER Dictated Date/Time: 06/07/19 Transcribed Date/Time: 06/07/19 Breast Limited LtDiagnostic Imaging Center Pt Name: JEN DURON [address] [facility]. Phys: Ck Balbuena MD, [id number] : 1950 Age: 68 SEX:F [phone] Exam Date: 06/07/19 Status: REG CLI Acct: [id number] Loc: BICMAMMO Pt Unit #: [id number] Report #: [id number] CC: Ck Balbuena MD ULTRASOUND REPORT Order # Category/Exam ULT/US Breast Limited Lt ([id number]): . Results 3 DIAGNOSTIC LEFT BREAST ULTRASOUND: [...] Center Pt Name: DOMIJEN Lydia [address] [facility]. Phys: Ck Balbuena MD [place], [id number] : 1950 Age: 68 SEX:F [phone] Exam Date: 06/07/19 Status: DEP CLI Acct: [id number] Loc: BICMAMMO Pt Unit #: [id number] Report #: [id number] CC: Ck Balbuena MD MAMMOGRAPHY REPORT Order # Category/Exam [id number] MMO/MAMMO Bilat Diag DDI+ALIREZA ([id number]): . Results 3 Bilateral MAMMO Bilat Diag [...] compared to prior imaging studies performed at [facility] on 06/07/2019, and at [facility] on 09/29/2018. MAMMOGRAM FINDINGS: The breasts are [...] benign finding - short interval follow-up suggested. [facility] will notify the patientof the need for additional imaging services. MAMMOGRAPHY NOTE: 1. A negative mammogram report should not delay a biopsy if a dominant of clinically suspicious mass is present. 2. Approximately 10% to 15% of breast cancers are not detected by mammography. 3. Adenosis and dense breasts may obscure an underlying neoplasm. Reported by: JAVY MULLINS MD Electonically Signed: [id number] Reported By: Javy Mullins MD Electronically Signed Date/Time: 06/07/19 0916 Technologist: JENNIFER Dictated Date/Time: 06/07/19 Transcribed Date/Time: 06/07/19XR Chest Pa Lat [facility] Pt Name: JEN DUORN [address] Phys: ESTEPHANIE MANRIQUE MD [place], [place] [address]BQF: 1950 Age: 68 SEX:F [phone] Exam Date: 02/17/19 Status: DEP ER Acct: [id number] Loc: MARIA E Pt Unit #: [id number] Report #: [id number] CC: ESTEPHANIE MANRIQUE MD IMAGING SERVICES REPORT Order # Category/Exam [id number] RAD/XR Chest Pa Lat STANDARD ([id number]): . Results T CHEST TWO VIEWS: 02/17/19 [...]
[2020-09-03] MEDS ORDERED: ALBUTEROL 2.5 MG/3 ML NEB SOL ONE (07:16)
[2020-09-03] MEDS ORDERED: Ringers Lactate 1,000 ML IV ONE (07:16)
[2020-09-03] MEDS ORDERED: CEFAZOLIN/SWI 1gm 1 GM/10 ML SYR ONE (07:16)
[2020-09-03] MEDS ORDERED: FENTANYL CITR 100 MCG/2 ML ONE (07:31)
[2020-09-03] MEDS ORDERED: propofoL 200 MG/20 ML VIAL IV ONE (07:31)
[2020-09-03] MEDS ORDERED: LIDOCAINE 1% MPF 5 ML VIAL ONE (07:31)
[2020-09-03] MEDS ORDERED: KETOROLAC 30 MG/ML INJ ONE (08:05)
[2020-09-03] MEDS ORDERED: ONDANSETRON 4 MG/2 ML VIAL ONE (08:27)
[2020-09-03] MEDS ORDERED: Mastisol Adhesive Liq ONE (08:32)
--- NOTE | 2020-09-03 08:34 | P.BOP ---
Preoperative diagnosis: tender right supraclavicular mass Postoperative diagnosis: same Primary procedure: Excisional biopsy of tender right supraclavicular mass Estimated blood loss: <10cc Specimen: mass Findings: tender right supraclavicular mass Anesthesia: General Complications: None Transferred to: Recovery Room Condition: Good
[2020-09-03 08:55] VITALS: O2SAT 96
[2020-09-03] MEDS ORDERED: MORPHINE 4 MG/ML SYR ONE (09:13)
[2020-09-03 10:11] VITALS: BP 114/54; TEMP 98.1
--- NOTE | 2020-09-03 10:56 | OP ---
Date of Procedure: 09/03/2020 Surgeon: Dallas Breaux MD Cap Sizer: Genoveva Madera. Preoperative Diagnosis: Tender right supraclavicular mass. Postoperative Diagnosis: Tender right supraclavicular mass. Procedure Performed: Excisional biopsy of tender right supraclavicular mass. Anesthesia: General plus local. Indications: This is a case of a 69-year-old patient comes to us with above diagnosis. Fully explai ata the benefits, alternatives, and risks of excisional biopsy of right tender supraclavicular mass, which include, but not limited to infection, bleeding, damage to adjacent structures, anesthesia comp lication, recurrence, DE, and even . She also understands this may not relieve any symptoms. S he might need more than one surgical intervention. She understood, signed a consent. The area of co [facility] was marked by me and the patient in the holding room. Description Of Procedure: The patient was brought to the operating room, placed in supine position. Anesthesia was done without complication. Right chest, supraclavicular area and neck were prepped a nd draped in a sterile fashion. Local anesthesia was applied followed by sharp incision of the area. Incision was carried down to the supraclavicular region. We noticed a fatty tumor present. That w as carefully removed from the rest of the area with lymphatics and also the veins. The lymphatic henriquez s not seem to be enlarged and the veins were preserved. Hemostasis was obtained. The area was irrig ated and then we proceeded to close this with a combination of 3-0 chromic and basically 4-0 PDS. Al so for hemostasis, we used 3-0 silk. The patient tolerated the procedure well. Sponge count and ins trument counts were correct. Steri-Strips were placed over the area. The patient was sent to [facility] [place] in stable condition. Diagnosis: Right supraclavicular tender subcutaneous mass. Procedure: Excisional biopsy of right subclavicular subcutaneous mass. Disposition: Home Activity: As tolerated. No heavy lifting. Plan: Follow up in my office in 1 week. Call for appointment at [phone]. Keep dressings intact un til next visit. Medications: See orders. HM/MODL Voice ID: [id number] Report ID: [id number]
== END 2020-09-03 09:50 | disposition home or self-care (01) ==
LOC: OR 06:49
PROVIDERS: ATTEND Surgery
PROC: 0JB40ZZ Excision of Right Neck Subcutaneous Tissue and Fascia, Open Approach (ICD-10-PCS; principal; 2020-09-03 07:30)
DX: D17.0 Benign lipomatous neoplasm of skin and subcutaneous tissue of head, face and neck (principal); F31.9 Bipolar disorder, unspecified; E07.9 Disorder of thyroid, unspecified; F17.210 Nicotine dependence, cigarettes, uncomplicated; R06.83 Snoring; Z20.828 Contact with and (suspected) exposure to other viral communicable diseases
CPT/HCPCS: 93005 ×2; 85025; 80048; 36415; 88304; 71046; 21552; U0002; J2704; J3010; J0690; J7120; J2405; 88305

== ENCOUNTER 2021-02-16 15:35 | Inpatient (IN) | payer OTHER ==
--- OUTSIDE RECORDS SUMMARY | 2021-02-16 15:39 | XMS REPORT | Continuity of Care Document ---
:1950 Author Organization [facility] t Address [address] [place] [address] Care Team Providers Name Role Phone Ben GRIGSBY Attending Clinician Unavailable AIRAM DE LA O Attending Clinician Unavailable Rashid Marcus Attending Clinician Unavailable ROSE MARIE Attending Clinician Unavailable BURTON Attending Clinician Unavailable ROSE MARIE Admitting Clinician Unavailable Problems This patient has [...] Hematology (test code = PCOMMENT) Appears Adequate Ktkqpqgmh0626-22-20 14:37:00 Test Item Value Reference Range Interpretation [...] code 8.9 mg/dL 7.8-10.44 N = CA) Zdmehnbisg1458-74-56 13:03:00 Test Item Value Reference Range Interpretation [...] UABLD) Small Negative A Urine Source: Urine LcksybKxuishvrsv1971-08-53 13:03:00 Test Item Value Reference Range Interpretation [...] LPF <2+ UAMCS) Urine Source: Urine VoidedCulture, Tswgn5205-73-14 15:24:00 Test Item Value Reference Range Interpretation Comments Culture, Blood (test code = BC) NG5 Culture, Cmlgf7161-30-45 15:24:00 Test Item Value Reference Range Interpretation Comments Culture, Blood (test code = BC) NG5 Vihxhaysv6011-61-39 06:54:00 Test Item Value Reference Range Interpretation [...] code 9.5 mg/dL 7.8-10.44 N = CA) Muhufzyazg3619-53-84 06:35:00 Test Item Value Reference Range Interpretation [...] code = BASO#) 0.0 thou/uL 0.0-0.2 N Wjspplnhv1109-52-58 07:40:00 Test Item Value Reference Range Interpretation [...] code 8.9 mg/dL 7.8-10.44 N = CA) Jycoqvgktz6305-86-15 07:19:00 Test Item Value Reference Range Interpretation [...] thou/uL 0.0-0.2 N Chemistry - BNP, HgbA1c, LUFn2612-46-95 19:31:00 Test Item Value Reference Range Interpretation Comments Chemistry - BNP, HgbA1c, PTHi 32.8 pg/mL 0-100 N (test code = BNP) Mvwabyfuh4033-40-09 19:30:00 Test Item Value Reference Range Interpretation Comments Chemistry (test Less than < 0.028 code = TROPI-R) 0.010 ng/mL Reference Ra nge 0. 00 - 0.028 ng/mL Negative 0.029 - 0.29 n g/mL Indeterminate Greater or Equa l to 0.3 ng/mL St rongly suggests ND Hsqkozbtg7217-72-90 19:28:00 Test Item Value Reference Range Interpretation [...] U/L 8-55 N = ALT) Chemistry - Svvfzlr1767-30-43 19:24:00 Test Item Value Reference Range Interpretation Comments Chemistry - Lactate (test code = 0.9 mmol/L 0.5-2.2 N LACTSEP-T) Bjwikdqqru7027-29-88 19:14:00 Test Item Value Reference Range Interpretation [...] Center Pt Name: JEN DURON [address] [facility]. Phys: Ck Balbuena MD, [id number] : 1950 Age: 69 SEX:F [phone] Exam Date: 12/27/19 Status: REG CLI Acct: [id number] Loc: BICMAMMO Pt Unit #: [id number] Report #: [id number] CC: Ck Balbuena MD MAMMOGRAPHY REPORT Order # Category/Exam [id number] MMO/MAMMO Unilat Diag DDI LT+ALIREZA ([id number]): . Results 2 Left Breast MAMMO Unilat [...] compared to prior imaging studies performed at [facility] on 06/07/2019, 09/12/2019 and 12/27/2019. This study [...] Reported by: BRYAN CARTER MD Electonically Signed: [id number] Reported By: Bryan Carter MD Electronically Signed Date/Time: 12/27/19 1055 Technologist: JASS DictatedDate/Time: 12/27/19 Transcribed Date/Time: 12/27/19MAMMO Unilat Diag DDI LT+ALIREZA [facility] Pt Name: JEN DURON [address] [facility]. Phys: Ck Balbuena MD [place], [id number] : 1950 Age: 69 SEX:F [phone] Exam Date: 12/27/19 Status: REG CLI Acct: [id number] Loc: DAXA Pt Unit #: [id number] Report #: [id number] CC: Ck Balbuena MD [facility] REPORT Order # Category/Exam [id number] MMO/MAMMO Unilat Diag DDI LT+ALIREZA ([id number]): . Results 2 Left Breast MAMMO Unilat [...] compared to prior imaging studies performed at [facility] on 06/07/2019, 09/12/2019 and 12/27/2019. This study [...] Reported by: BRYAN CARTER MD Electonically Signed: [id number] Reported By: Bryan Carter MD Electronically Signed Date/Time: 12/27/19 1055 Technologist: [email or web address] DictatedDate/Time: 12/27/19 Transcribed Date/Time: 12/27/19US Breast Limited LtDiagnostic Imaging Center Pt Name: EJN DURON [address] [facility]. Phys: Ck Balbuena MD [place], [id number] : 1950 Age: 69 SEX:F [phone] Exam Date: 12/27/19 Status: REG CLI Acct: [id number] Loc: BICMAMMO Pt Unit #: [id number] Report #: [id number] CC: Ck Balbuena MD ULTRASOUND REPORT Order # Category/Exam [id number] ULT/US Breast Limited Lt ([id number]): . Results 2 LEFT BREAST ULTRASOUND: Date: [...] Date/Time: 12/27/19 1205CT Neck Soft Tissue W [facility] Pt Name: JEN DURON Lydia [address] Phys: [place] [address] : 1950 Age: 68 SEX:F [phone] Exam Date: 10/18/19 Status: DEP ER Acct: [id number] Loc: [facility] Pt Unit #: [id number] Report #: [id number] CC: MELLO GRIGSBY MD CATSCAN REPORT Order # Category/Exam [id number] CT/CT Neck Soft Tissue W Con ([id number]): . Results POSTCONTRAST SOFT TISSUE NECK CT [...] 10/18/19 1521 Transcribed Date/Time:XR Chest 1 View [facility] Pt Name: JEN DURON [address] Phys: [place] [address] : 1950 Age: 68 SEX:F [phone] Exam Date: 10/18/19 Status: DEP ER Acct: [id number] Loc: B[facility]ERS Pt Unit #: [id number] Report #: [id number] CC: MELLO GRIGSBY MD IMAGING SERVICES REPORT Order # Category/Exam [id number] RAD/XR Chest 1 View Portable ([id number]): . Results PORTABLE CHEST: 10/18/19 Comparison is [...] Imaging Center Pt Name: JEN DURON [address] [facility]. Phys: Ck Balbuena MD [place], [id number] : 1950 Age: 68 SEX:F [phone] Exam Date: 09/12/19 Status: REG CLI Acct: [id number] Loc: BICULT Pt Unit #: [id number] Report #: [id number] CC: Ck Balbuena MD ULTRASOUND REPORT Order # Category/Exam [id number] ULT/US Breast Limited ([id number]): . Results 3 LEFT BREAST DIAGNOSTIC ULTRASOUND: [...] MD Electronically Signed Date/Time: 09/12/19 1312 Technologist: [email or web address] Dictated Date/Time: 09/12/19 1028 Transcribed Date/Time: 09/12/19 1206MAMMO Bilat Diag DDI+ALIREZA [facility] Pt Name: JEN DURON [address] [facility]. Phys: Ck Balbuena MD [place], [id number] : 1950 Age: 68 SEX:F [phone] Exam Date: 06/07/19 Status: REG CLI Acct: [id number] [facility] Pt Unit #: [id number] Report #: [id number] CC: Ck Balbuena MD [facility] REPORT Order # Category/Exam [id number] MMO/MAMMO Bilat Diag DDI+ALIREZA ([id number]): . Results 3 Bilateral MAMMO Bilat Diag [...] compared to prior imaging studies performed at [facility] on 06/07/2019, and at [facility] on 09/29/2018. MAMMOGRAM FINDINGS: The breasts are [...] benign finding - short interval follow-up suggested. [facility] will notify the patientof the need for additional imaging services. MAMMOGRAPHY NOTE: 1. A negative mammogram report should not delay a biopsy if a dominant of clinically suspicious mass is present. 2. Approximately 10% to 15% of breast cancers are not detected by mammography. 3. Adenosis and dense breasts may obscure an underlying neoplasm. Reported by: JAVY MULLINS MD Electonically Signed: [id number] Reported By: Javy Mullins MD Electronically Signed Date/Time: 06/07/19 0916 Technologist: JENNIFER Dictated Date/Time: 06/07/19 Transcribed Date/Time: 06/07/19 Breast Limited LtDiagnostic Imaging Center Pt Name: JEN DURON [address] [facility]. Phys: Ck Balbuena MD, [id number] : 1950 Age: 68 SEX:F [phone] Exam Date: 06/07/19 Status: REG CLI Acct: [id number] Loc: BICMAMMO Pt Unit #: [id number] Report #: [id number] CC: Ck Balbuena MD ULTRASOUND REPORT Order # Category/Exam ULT/US Breast Limited Lt ([id number]): . Results 3 DIAGNOSTIC LEFT BREAST ULTRASOUND: [...] Bilat Diag DDI+TOM[facility]iagnostic Imaging Center Pt Name: DURON,JEN G [address] [facility]. Phys: Ck Balbuena MD [place], [id number] : 1950 Age: 68 SEX:F [phone] Exam Date: 06/07/19 Status: DEP CLI Acct: [id number] Loc: BICMAMMO Pt Unit #: [id number] Report #: [id number] CC: Ck Balbuena MD MAMMOGRAPHY REPORT Order # Category/Exam MMO/MAMMO Bilat Diag DDI+ALIREZA ([id number]): . Results 3 Bilateral MAMMO Bilat Diag [...] compared to prior imaging studies performed at [facility] on 06/07/2019, and at [facility] on 09/29/2018. MAMMOGRAM FINDINGS: The breasts are [...] benign finding - short interval follow-up suggested. [facility] will notify the patientof the need for additional imaging services. MAMMOGRAPHY NOTE: 1. A negative mammogram report should not delay a biopsy if a dominant of clinically suspicious mass is present. 2. Approximately 10% to 15% of breast cancers are not detected by mammography. 3. Adenosis and dense breasts may obscure an underlying neoplasm. Reported by: JAVY MULLINS MD Electonically Signed: [id number] Reported By: Javy Mullins MD Electronically Signed Date/Time: 06/07/19 0916 Technologist: JENNIFER Dictated Date/Time: 06/07/19 Transcribed Date/Time: 06/07/19XR Chest Pa Lat [facility]urleson [facility] Pt Name: JEN DURON [address] Phys: ESTEPHANIE [place] [address]PDV: 1950 Age: 68 SEX:F [phone] Exam Date: 02/17/19 Status: DEP ER Acct: [id number] Loc: MARIA E Pt Unit #: [id number] Report #: [id number] CC: ESTEPHANIE MANRIQUE MD IMAGING SERVICES REPORT Order # Category/Exam [id number] RAD/XR Chest Pa Lat STANDARD ([id number]): . Results T CHEST TWO VIEWS: 02/17/19 [...]
[2021-02-16] MEDS ORDERED: IPRATROPIUM BROM 0.5MG/2.5ML ONE ×2 (16:23→19:47)
[2021-02-16] MEDS ORDERED: LEVALBUTEROL 1.25 MG/3 ML NEB ONE (16:23)
[2021-02-16] MEDS ORDERED: Magnesium Sulfate 2gm IVPB 2 G/50 ML BAG IV ONE (16:23)
--- NOTE | 2021-02-16 16:35 | RAD REPORT ---
EXAM DESCRIPTION: RAD - Chest Single View - 02/16/2021 4:15 pm CLINICAL HISTORY: COPD Chest pain. COMPARISON: Chest Pa And Lat (2 Views) dated 09/02/2020; Chest Single View dated 07/22/2020; Chest Pa And Lat (2 Views) dated 07/10/2020; Chest Pa And Lat (2 Views) dated 09/30/2018 FINDINGS: Portable technique limits examination quality. The lungs are grossly clear. The heart is normal in size. No displaced fractures. IMPRESSION: No acute intrathoracic process suspected.
[2021-02-16 16:44] LABS: Protime INR 1.06
[2021-02-16 16:45] LABS: Absolute Lymphocytes (CBC) 0.9 K/uL (0.7-4.9); Basophils % 0.6 % (0-1.3); Hematocrit 45.5 % (36.0-45.0); Lymphocytes % 14.9 % (15.3-44.8); MPV 9.1 fL (7.6-11.3)
[2021-02-16 16:55] LABS: ALT/SGPT 19 U/L (12-78); AST/SGOT 13 U/L (15-37); Albumin 3.5 g/dL (3.4-5.0); Alkaline Phosphatase 60 U/L (45-117); BUN Blood Urea Nitrogen 14 mg/dL (7-18); Bicarbonate 37 mmol/L (21-32); Bilirubin Direct < 0.1 mg/dL (0-0.2); Bilirubin Total 0.2 mg/dL (0.2-1.0); Glucose Level 97 mg/dL (74-106); Magnesium 1.9 mg/dL (1.8-2.4); NT PRO-BNP 101 pg/mL (<125); Protein, Total 6.9 g/dL (6.4-8.2); Sodium Level 143 mmol/L (136-145); Troponin (Emerg Dept Use Only) < 0.02 ng/mL (0.0-0.045)
--- NOTE | 2021-02-16 17:18 | ER ---
[facility] Name: Cassia Garcia Age: 70 yrs Sex: Female : 1950 Arrival Date: 02/16/2021 Time: 15:37 Bed 8 Private MD: Diagnosis: Chronic obstructive pulmonary disease with (acute) exacerbation;Hypoxia Presentation: 02/16 15:37 Chief complaint: Patient states: Sent by PCP for O2 sats of 78%. Pt wears home O2, went jl7 to PCP for medication refills without home O2, reports increased SOB over the past month. Coronavirus screen: Client denies travel out of the [place] in the last 14 days. cough unrelated to allergies, shortness of breath. Ebola Screen: No symptoms or risks identified at this time. 15:37 Method Of Arrival: Wheelchair jl7 15:37 Initial Sepsis Screen: Does the patient meet any 2 criteria? No. Patient's initial jl7 sepsis screen is negative. Does the patient have a suspected source of infection? No. Patient's initial sepsis screen is negative. Risk Assessment: Do you want to hurt yourself or someone else? Patient reports no desire to harm self or others. Onset of symptoms was February 16, 2021. Care prior to arrival: None. 15:37 Acuity: SAPPHIRE 2 jl7 Triage Assessment: 15:40 General: Appears distressed, uncomfortable, Behavior is cooperative, anxious. Pain: jl7 Denies pain. Neuro: Level of Consciousness is awake, alert, obeys commands, Oriented to person, place, time, situation. Cardiovascular: Heart tones present Patient's skin is warm and dry. Respiratory: Reports shortness of breath Airway is patent Respiratory effort is labored, with nasal flaring, with retractions, Respiratory pattern is symmetrical, tachypnea Breath sounds with wheezes bilaterally. Onset: The symptoms/episode began/occurred gradually, the patient has moderate shortness of breath. Derm: Skin is pink, warm \T\ dry. Historical: - Allergies: 16:00 No Known Allergies; jl7 - Home Meds: 16:00 Abilify 30 mg Oral tab 1 tab once daily [Active]; Adderall XR 20 mg Oral cp24 1 cap jl7 once daily [Active]; Cymbalta 60 mg Oral cpDR 2 caps once daily [Active]; BuSpar Oral [Active]; levothyroxine oral [Active]; 18:12 montelukast oral oral [Active]; aripiprazole oral oral [Active]; jl7 - PMHx: 16:00 Anxiety; Asthma; Bipolar disorder; COPD; Depression; Psychotic behavior; jl7 18:12 Hypothyroidism; jl7 - PSHx: 16:00 Hysterectomy; ; Cholecystectomy; Foot surgery; Appendectomy; Lumpectomy; jl7 - Immunization history:: Adult Immunizations Client reports receiving the 2nd dose of the Covid vaccine. - Social history:: Smoking status: Patient reports the use of cigarette tobacco products. Screenin:40 Abuse screen: Denies threats or abuse. Denies injuries from another. Nutritional [facility] screening: No deficits noted. Tuberculosis screening: No symptoms or risk factors identified. Fall Risk IV access (20 points). Total [place] Fall Scale indicates No Risk (0-24 pts). Assessment: 15:40 General: See triage assessment. [facility] 17:00 Reassessment: Patient appears in no apparent distress at this time. Patient and/or [facility] family updated on plan of care and expected duration. Pain level reassessed. Patient is alert, oriented x 3, equal unlabored respirations, skin warm/dry/pink. Patient states feeling better. 18:12 Reassessment: Patient appears in no apparent distress at this time. No changes from [facility] previously documented assessment. Patient and/or family updated on plan of care and expected duration. Pain level reassessed. Patient is alert, oriented x 3, equal unlabored respirations, skin warm/dry/pink. Cardiovascular: Rhythm is regular. Vital Signs: 15:37 BP 137 / 76; Pulse 105; Resp 25 S; Pulse Ox 82% on R/A; Weight 124.74 kg (R); Height [address] [facility] ft. 1 in. (154.94 cm); Pain 0/10; 16:56 BP 114 / 56; Pulse 101; Resp 19; Temp 97.7; Pulse Ox 96% ; jl7 21:37 BP 131 / 80; Pulse 96; Resp 18; Pulse Ox 97% on R/A; ea 22:35 BP 128 / 80; Pulse 70; Resp 18; Pulse Ox 99% ; ea 15:37 Body Mass Index 51.96 (124.74 kg, 154.94 cm) jl7 ED Course: 15:37 Patient arrived in ED. ds1 15:40 Arm band placed on right wrist. jl7 15:40 Patient has correct armband on for positive identification. Placed in gown. Bed in low jl7 position. Call light in reach. Side rails up X 1. grinder dresser on. Pulse ox on. NIBP on. Warm blanket given. 15:41 Simon Malhotra RN is Primary Nurse. jl7 15:46 Cyndi Sheikh FNP-C is PHCP. kb 15:46 Bacilio Crowe MD is Attending Physician. kb 15:58 Triage completed. jl7 16:13 XRAY Chest (1 view) In Process Unspecified. EDMS 16:21 Initial lab(s) drawn, by me, sent to lab. First set of blood cultures drawn by me, jl7 COVID swab sent to lab. 16:22 EKG done, by ED staff, reviewed by Cyndi DC. em1 16:31 Inserted saline lock: 20 gauge in right hand, using aseptic technique. Blood collected. jl7 16:48 PT-INR Sent. sv 16:48 NT PRO-BNP Sent. sv 16:48 Magnesium Sent. sv 16:48 LFT's Sent. sv 16:48 CBC with Diff Sent. sv 16:48 Basic Metabolic Panel Sent. sv 17:17 Rogelio Garcia MD is Hospitalizing Provider. kb 18:06 Second set of blood cultures drawn. jl7 18:12 Inserted saline lock: 22 gauge in left wrist, using aseptic technique. Blood collected. jl7 19:14 Primary Nurse role handed off by Simon Malhotra RN mw2 21:37 No provider procedures requiring assistance completed. Patient admitted, IV remains in ea place. Administered Medications: 16:30 Drug: Magnesium Sulfate 2 grams Route: IVPB; Infused Over: 1 hrs; Site: right hand; jl7 21:42 Follow up: Response: No adverse reaction; IV Status: Completed infusion ea 16:30 Drug: Xopenex (levalbuterol) 1.25 mg Route: Inhalation; jl7 17:00 Follow up: Response: No adverse reaction jl7 16:30 Drug: AtroVENT (ipratropium) Aerosol 0.5 mg Route: Inhalation; jl7 17:00 Follow up: Response: No adverse reaction jl7 Outcome: 17:17 Decision to Hospitalize by Provider. kb 21:37 Condition: stable ea 21:37 Instructed on the need for admit, Demonstrated understanding of instructions. 22:34 Admitted to Med/surg accompanied by tech, via wheelchair, with chart, Report called to ea receiving nurse 22:36 Patient left the ED. ea Signatures: Dispatcher [employer] EDCyndi Irene, VENEER REPAIRER MACHINE-C VENEER REPAIRER MACHINE-Mel Armas, RN Iraida Perez ds1 Neo Breaux em1 Simon Malhotra RN RN jl7 Cherelle Hooper RN Clifton Ruiz ea mw2
--- NOTE | 2021-02-16 17:18 | EDPHYS ---
Physician Documentation [facility] Name: Cassia Garcia Age: 70 yrs Sex: Female : 1950 Arrival Date: 02/16/2021 Time: 15:37 Bed 8 Private MD: ED Physician Bacilio Crowe HPI: 02/16 17:14 This 70 yrs old Female presents to ER via Wheelchair with complaints of kb Breathing Difficulty. 17:14 The patient has shortness of breath at rest. Onset: The symptoms/episode began/occurred kb 1 month(s) ago. Duration: The symptoms are continuous. The patient's shortness of breath is aggravated by exertion, is alleviated by nothing. Associated signs and symptoms: Pertinent positives: non-productive cough. Severity of symptoms: At their worst the symptoms were moderate in the emergency department the symptoms are unchanged. The patient has experienced similar episodes in the past. The patient has been recently seen by a physician: the patient's primary care provider, earlier today, with similar presenting complaints, and was sent to the [facility] Emergency Department for further evaluation. Pt reports shortness of breath that has been going on for a month, but progressively worsening. Went to PCP today and was sent here. PCP called prior to pt's arrival. 2 albuterol neb treatments given without improvement, steroid shot given, pt's O2 was 78% after treatment prompting ER visit. . Historical: - Allergies: 16:00 No Known Allergies; jl7 - Home Meds: 16:00 Abilify 30 mg Oral tab 1 tab once daily [Active]; Adderall XR 20 mg Oral cp24 1 cap jl7 once daily [Active]; Cymbalta 60 mg Oral cpDR 2 caps once daily [Active]; BuSpar Oral [Active]; levothyroxine oral [Active]; 18:12 montelukast oral oral [Active]; aripiprazole oral oral [Active]; jl7 - PMHx: 16:00 Anxiety; Asthma; Bipolar disorder; COPD; Depression; Psychotic behavior; jl7 18:12 Hypothyroidism; jl7 - PSHx: 16:00 Hysterectomy; ; Cholecystectomy; Foot surgery; Appendectomy; Lumpectomy; jl7 - Immunization history:: Adult Immunizations Client reports receiving the 2nd dose of the Covid vaccine. - Social history:: Smoking status: Patient reports the use of cigarette tobacco products. ROS: 18:13 Constitutional: Negative for fever, chills, and weight loss. kb 18:13 Respiratory: Positive for cough, dyspnea on exertion, shortness of breath. 18:13 All other systems are negative. kb Exam: 18:12 ENT: Moist Mucous membranes Cardiovascular: Regular rate and rhythm with a normal S1 kb and S2. No gallops, murmurs, or rubs. No pulse deficits. Abdomen/GI: Soft, non-tender. No distention Skin: Warm, dry with normal turgor. Normal color. MS/ Extremity: Pulses equal, no cyanosis. Neurovascular intact. Full, normal range of motion. Neuro: Awake and alert, GCS 15, oriented to person, place, time, and situation. Moves all extremities. Normal gait. Psych: Awake, alert, with orientation to person, place and time. Behavior, mood, and affect are within normal limits. 18:12 Constitutional: The patient appears alert, awake, in obvious distress. 18:12 Respiratory: moderate respiratory distress is noted, Respirations: labored breathing, that is moderate, Breath sounds: wheezing: expiratory that is moderate, is heard diffusely. Vital Signs: 15:37 BP 137 / 76; Pulse 105; Resp 25 S; Pulse Ox 82% on R/A; Weight 124.74 kg (R); Height 5 jl7 ft. 1 in. (154.94 cm); Pain 0/10; 16:56 BP 114 / 56; Pulse 101; Resp 19; Temp 97.7; Pulse Ox 96% ; jl7 21:37 BP 131 / 80; Pulse 96; Resp 18; Pulse Ox 97% on R/A; ea 22:35 BP 128 / 80; Pulse 70; Resp 18; Pulse Ox 99% ; ea 15:37 Body Mass Index 51.96 (124.74 kg, 154.94 cm) jl7 MDM: 15:46 Patient medically screened. kb 17:11 Data reviewed: vital signs, nurses notes. Data interpreted: Pulse oximetry: on 2L(s) kb per nasal canula, is 87 %. Interpretation: normal. Counseling: I had a detailed discussion with the patient and/or guardian regarding: the historical points, exam findings, and any diagnostic results supporting the discharge/admit diagnosis, lab results, radiology results, the need for further work-up and treatment in the hospital. 17:15 Physician consultation: Erons contacted about admission. Sees pt in ED now. . kb 18:13 Response to treatment: the patient's symptoms have markedly improved after treatment. kb 02/16 15:47 Order name: Basic Metabolic Panel kb 02/16 15:47 Order name: CBC with Diff kb 02/16 15:47 Order name: LFT's kb 02/16 15:47 Order name: Magnesium kb 02/16 15:47 Order name: NT PRO-BNP kb 02/16 15:47 Order name: PT-INR kb 02/16 15:47 Order name: Troponin (emerg Dept Use Only); Complete Time: 16:59 kb 02/16 15:47 Order name: Lactate; Complete Time: 16:59 kb 02/16 15:47 Order name: Blood Culture Adult (2) kb 02/16 15:48 Order name: Basic Metabolic Panel; Complete Time: 16:59 EDMS 02/16 15:48 Order name: CBC with Automated Diff; Complete Time: 16:59 EDMS 02/16 15:48 Order name: Liver (Hepatic) Function; Complete Time: 16:59 EDMS 02/16 15:48 Order name: Magnesium; Complete Time: 16:59 EDMS 02/16 15:47 Order name: XRAY Chest (1 view); Complete Time: 16:36 kb 02/16 15:47 Order name: EKG; Complete Time: 15:48 kb 02/16 15:48 Order name: NT PRO-BNP; Complete Time: 16:59 EDMS 02/16 15:48 Order name: Protime (+INR); Complete Time: 16:48 EDMS 02/16 17:38 Order name: D-Dimer; Complete Time: 18:59 EDMS 02/16 17:39 Order name: SARS-COV-2 RT PCR; Complete Time: 17:47 EDMS 02/16 17:42 Order name: Troponin I; Complete Time: 18:36 EDMS 02/16 17:42 Order name: Basic Metabolic Panel EDMS 02/16 17:42 Order name: Basic Metabolic Panel EDMS 02/16 17:42 Order name: CBC with Automated Diff EDMS 02/16 17:42 Order name: CBC with Automated Diff EDMS 02/16 17:43 Order name: Urinalysis EDMS 02/16 15:47 Order name: Cardiac monitoring; Complete Time: 16:30 kb 02/16 15:47 Order name: EKG - Nurse/Tech; Complete Time: 16:22 kb 02/16 15:47 Order name: IV Saline Lock; Complete Time: 16:30 kb 02/16 15:47 Order name: Labs collected and sent; Complete Time: 16:30 kb 02/16 15:47 Order name: O2 Per Protocol; Complete Time: 16:30 kb 02/16 15:47 Order name: O2 Sat Monitoring; Complete Time: 16:30 kb 02/16 17:42 Order name: [facility] EDIL Administered Medications: 16:30 Drug: Magnesium Sulfate 2 grams Route: IVPB; Infused Over: 1 hrs; Site: right hand; [facility] 21:42 Follow up: Response: No adverse reaction; IV Status: Completed infusion 16:30 Drug: Xopenex (levalbuterol) 1.25 mg Route: Inhalation; jl7 17:00 Follow up: Response: No adverse reaction [facility] 16:30 Drug: AtroVENT (ipratropium) Aerosol 0.5 mg Route: Inhalation; jl7 17:00 Follow up: Response: No adverse reaction 7 Disposition: 18:35 Co-signature as Attending Physician, Bacilio Crowe MD. ma2 Disposition: 02/16/21 17:17 Hospitalization ordered by Rogelio Garcia for Observation. Preliminary diagnosis are Chronic obstructive pulmonary disease with (acute) exacerbation, Hypoxia. - Bed requested for Telemetry/MedSurg (observation). - Status is Observation. ea - Condition is Fair. - Problem is new. - Symptoms are unchanged. Signatures: Dispatcher [employer] EDIL Cyndi Sheikh, HAIR SPRING WINDER-C HAIR SPRING WINDER-Mel Armas RN Purnima Main RN RN cg Leal, Jahala, RN RN jl7 Antunez, Elena, RN RN ea Alzahri, Mohammad, MD MD ma2 Corrections: (The following items were deleted from the chart) 16:55 15:57 CORONAVIRUS+ ordered. [facility] 17:14 17:11 ED course: Pt reports shortness of breath that has been going on for a month, but kb progressively worsening. Went to PCP today and was sent here. PCP called prior to pt's arrival. 2 albuterol neb treatments given without improvement, steroid shot given, pt's O2 was 78% after treatment prompting ER visit. . kb 17:16 17:11 ED course: Pt reports shortness of breath that has been going on for a month, but kb progressively worsening. Went to PCP today and was sent here. PCP called prior to pt's arrival. 2 albuterol neb treatments given without improvement, steroid shot given, pt's O2 was 78% after treatment prompting ER visit. . kb 17:47 17:17 Hospitalization Ordered by Rogelio Garcia MD for Observation. Preliminary sv diagnosis is Chronic obstructive pulmonary disease with (acute) exacerbation; Hypoxia. Bed requested for Telemetry/MedSurg (observation). Status is Observation. Condition is Fair. Problem is new. Symptoms are unchanged. kb 21:19 17:47 02/16/2021 17:17 Hospitalization Ordered by Rogelio Garcia MD for Observation. cg Preliminary diagnosis is Chronic obstructive pulmonary disease with (acute) exacerbation; Hypoxia. Bed requested for [facility] ER HOLD. Status is Observation. Condition is Fair. Problem is new. Symptoms are unchanged. sv 22:36 21:19 02/16/2021 17:17 Hospitalization Ordered by Rogelio Garcia MD for Observation. ea Preliminary diagnosis is Chronic obstructive pulmonary disease with (acute) exacerbation; Hypoxia. Bed requested for Telemetry/MedSurg (observation). Status is Observation. Condition is Fair. Problem is new. Symptoms are unchanged. cg
[2021-02-16] MEDS ORDERED: ONDANSETRON 4 MG/2 ML VIAL IV PRN (17:39)
[2021-02-16] MEDS ORDERED: ACETAMINOPHEN 500 MG TAB PO PRN (17:39)
[2021-02-16] MEDS ORDERED: CODEINE 30MG/APAP 300MG TAB PO PRN (17:42)
--- NOTE | 2021-02-16 17:46 | P.HP ---
Certification for Inpatient Patient admitted to: Observation With expected LOS: <2 Midnights Patient will require the following post-hospital care: None Practitioner: I am a practitioner with admitting privileges, knowledge of patient current condition, hospital course, and medical plan of care. Services: Services provided to patient in accordance with Admission requirements found in Title 42 Section 412.3 of the Code of Federal Regulations Patient History Date of Service: 02/16/21 Reason for admission: SOB History of Present Illness: Patient is a 70 year old female with a PMHx significant for Anxiety, Asthma, Bipolar disorder, COPD, Depression who presents with c\o sob that has been ongoing for the past 1 month. Patient reports associated signs and symptoms of cough and chest tightness. Patient reported that she saw her PCP today in the clinic, was given a steroid injection and nebulizer treatment with albuterol. Patient's O2 sat remained at 78% on room air. Patient denies any other signs and symptoms. Symptoms are aggravated by exertion and relieved by nothing. Patient was advised by her PCP to come to the ER for further management. Allergies No Known Allergies Allergy (Verified 09/02/20 13:00) Home medications list reviewed: Yes Home Medications: Albuterol Inhaler [Ventolin Inhaler*] 2 puff IH Q4HR 09/30/18 Albuterol Sulfate 1 aer IH Q6H 09/30/18 Aripiprazole [Abilify] 20 mg PO DAILY 09/30/18 Budesonide/Formoterol Fumarate [Symbicort 80-4.5 Mcg Inhaler] 2 puff IH DAILY 09/30/18 Buspirone HCl 15 mg PO BID 09/30/18 Cholecalciferol (Vitamin D3) [Vitamin D3] 50,000 unit PO EVERY 7TH DAY 09/30/18 Duloxetine HCl 60 mg PO DAILY 09/30/18 Levothyroxine [Synthroid*] 0.025 mg PO [id number] 09/30/18 Montelukast [Singulair*] 10 mg PO DAILY 09/30/18 Ropinirole HCl [Requip*] 0.25 mg PO TID 09/30/18 Trazodone HCl 100 mg PO BEDTIME 09/30/18 Smz./Tmp. [Bactrim Ds 800 MG/160 MG*] 1 tab PO BID #10 tab 10/05/18 predniSONE [Prednisone*] 20 mg PO BID #15 tab 10/05/18 Codeine/APAP [Tylenol W/Codeine #3 tab] 1 tab PO Q4HP PRN #30 tab 09/03/20 Sulfamethoxazole/Trimethoprim [Bactrim Ds Tablet] 1 each PO BID #12 tablet 09/03/20 - Past Medical/Surgical History Diabetic: No -: Bipolar disorder -: Schizophrenia -: COPD, oxygen-dependent -: Former tobacco use -: Obesity -: Heppatitis B -: COPD -: L breast lumpectomy -: mack -: hysterectomy -: tubal ligation -: appendectomy Psychosocial/ Personal History: Patient is a . She lives by herself. She has 1 child. - Family History Father -: Heart disease Notes: dementia Mother -: Cancer - Social History Smoking Status: Current every day smoker Smoking therapy provided: Yes Patient receptive to therapy: Yes Alcohol use: Yes CD- Drugs: No Caffeine use: Yes Place of Residence: Home Review of Systems General: Unremarkable Eyes: Unremarkable ENT: Unremarkable Respiratory: Cough, Shortness of Breath, Other (Chest tightness ) Cardiovascular: Unremarkable Gastrointestinal: Unremarkable Genitourinary: Unremarkable Musculoskeletal: Unremarkable Integumentary: Unremarkable Neurological: Unremarkable Physical Examination - Physical Exam General: Alert, In no apparent distress, Oriented x3 HEENT: Atraumatic, PERRLA, Mucous membr. moist/pink, EOMI, Sclerae nonicteric Neck: Supple, 2+ carotid pulse no bruit, No LAD, Without JVD or thyroid abnormality Respiratory: Diminished, Expiratory wheezes Cardiovascular: No edema, Regular rate/rhythm, Normal S1 S2 Capillary refill: <2 Seconds Gastrointestinal: Normal bowel sounds, No tenderness Musculoskeletal: No clubbing, No tenderness Integumentary: No rashes Neurological: Normal gait, Normal speech, Normal strength at 5/5 x4 extr, Normal tone, Normal affect Lymphatics: No axilla or inguinal lymphadenopathy External genitalia: Deferred Rectal: Deferred - Studies Laboratory Data (last 24 hrs) 02/16/21 16:21: PT 12.2, INR 1.06 02/16/21 16:21: WBC 5.80, Hgb 14.7, Hct 45.5 H, Plt Count 139 L 02/16/21 16:21: Sodium 143, Potassium 4.0, BUN 14, Creatinine 0.64, Glucose 97, Magnesium 1.9, Total Bilirubin 0.2, AST 13 L, ALT 19, Alkaline Phosphatase 60 Assessment and Plan - Plan --Acute on chronic COPD Exacerbation. Patient placed on neb tx with albuterol\Atrovent and steroids. Continue O2 therapy and supportive care. --Severe persistent asthma with exacerbation. Continue current treatment regimen --Acute respiratory failure with hypoxia. Improving with current treatment mariluz men. O2 sat is 96% on 2L\min via NC. Continue supportive care. --Anxiety disorder\ bipolar disorder\Depression\schizophrenia. Continue home medications. --Nicotine dependence. Patient counseled on tobacco cessation. Refuses nicotine patch. --Class III obesity. Likely secondary to excess calories intake. Patient counseled on weight reduction, diet and exercise therapy. --RLS. Continue home medication --Hypothyroidism. Continue Synthriod. --DVT prophylaxis with Heparin subQ Discharge Plan: Home Plan to discharge in: 48 Hours - Advance Directives Does patient have a Living Will: No Does patient have a Durable POA for Healthcare: No - Code Status/Comfort Care Code Status Assessed: Yes Code Status: Full Code Critical Care: No
[2021-02-16] MEDS: METHYLPREDNISOLONE 40 MG INJ IV SCH (18:00)
[2021-02-16 18:46] VITALS: BMI 52.0
[2021-02-16] MEDS ORDERED: METHYLPREDNISOLONE 40 MG INJ ONE (18:59)
[2021-02-16] MEDS ORDERED: ALBUTEROL 2.5 MG/3 ML NEB SOL ONE (19:47)
[2021-02-16] MEDS: ALBUTEROL 2.5 MG/3 ML NEB SOL NEB SCH (20:00)
[2021-02-16] MEDS: IPRATROPIUM BROM 0.5MG/2.5ML NEB SCH (20:00)
[2021-02-16] MEDS: ROPINIROLE HCL 0.25 MG TAB PO SCH (21:00)
[2021-02-16] MEDS: BENZONATATE 100 MG CAP PO PRN (22:02)
[2021-02-16] MEDS ORDERED: BENZONATATE 100 MG CAP PO ONE (22:19)
[2021-02-17] MEDS: TRAZODONE 50 MG TABLET PO SCH ×2 (01:23→20:52)
[2021-02-17] MEDS: HEPARIN 5000 UNIT/ML 1 ML VIAL SQ SCH ×3 (01:23→17:03)
[2021-02-17] MEDS: METHYLPREDNISOLONE 40 MG INJ IV SCH ×4 (01:23→18:40)
[2021-02-17] MEDS: BUSPIRONE HCL 5 MG TABLET PO SCH ×3 (01:25→20:52)
[2021-02-17] MEDS ORDERED: BUSPIRONE HCL 5 MG TABLET PO SCH (02:00)
[2021-02-17 02:47] LABS: Urine Appearance CLOUDY (Clear); Urine Bilirubin NEGATIVE (Negataive); Urine Blood NEGATIVE (Negative); Urine Color YELLOW (Yellow); Urine Glucose NEGATIVE (Negative); Urine Protein NEGATIVE (Negative); Urine Specific Gravity 1.015 (1.005-1.030); Urine Urobilinogen 0.2 mg/dL (0.2-1.0); Urine pH 6.5 (5.0-7.0)
[2021-02-17 02:49] LABS: Urine Microscopic Reflex ORDER UMIC
[2021-02-17] MEDS: IPRATROPIUM BROM 0.5MG/2.5ML NEB SCH ×4 (03:05→19:25)
[2021-02-17] MEDS: ALBUTEROL 2.5 MG/3 ML NEB SOL NEB SCH ×4 (03:05→19:25)
[2021-02-17 04:31] LABS: Urine Bacteria 20-50 /HPF (<20); Urine RBC <5 /HPF (NONE SEEN)
[2021-02-17 05:55] LABS: Absolute Lymphocytes (CBC) 0.3 K/uL (0.7-4.9); Basophils % 0.3 % (0-1.3); Hematocrit 42.9 % (36.0-45.0); MPV 8.9 fL (7.6-11.3)
[2021-02-17 06:16] LABS: BUN Blood Urea Nitrogen 15 mg/dL (7-18); Bicarbonate 37 mmol/L (21-32); Glucose Level 149 mg/dL (74-106); Potassium 4.6 mmol/L (3.5-5.1); Sodium Level 141 mmol/L (136-145)
[2021-02-17 06:29] LABS: Blood Morphology Comment NOT SEEN (NOT SEEN); Platelet Estimate DECR; White Blood Cell Scan OK (OK)
[2021-02-17] MEDS: ROPINIROLE HCL 0.25 MG TAB PO SCH ×3 (09:49→20:52)
--- NOTE | 2021-02-17 11:40 | EKG ---
Test Date: 2021-02-16 Test Time: 16:13:39 Taxicab Starter: AMILCAR MEASUREMENT RESULTS: Intervals: Rate: 103 [place]: 158 QRSD: 84 QT: 332 QTc: 434 Gibson: P: 48 [place]: 158 QRS: 61 T: 50 INTERPRETIVE STATEMENTS: Sinus tachycardia Otherwise normal ECG Compared to ECG 09/02/2020 12:26:12 Sinus rhythm no longer present Sinus arrhythmia no longer present Electronically Signed On 02-17-21 11:39:28 CDT by Boni Grier
[2021-02-17] MEDS: BENZONATATE 100 MG CAP PO PRN (13:32)
--- NOTE | 2021-02-17 15:10 | P.PN ---
Subjective Date of Service: 02/17/21 Chief Complaint: SOB Patient reports she is still significantly short of breath. She is wheezing audibly. She reports no significant change from yesterday. Physical Examination - Vital Signs Temperature: 98.5 F Blood Pressure: 112/57 Pulse: 88 Respirations: 19 Pulse Ox (%): 90 - Physical Exam General: Alert, Mild distress HEENT: Mucous membr. moist/pink, Other (Oxygen by nasal cannula) Neck: Supple, JVD not distended Respiratory: Diminished, Expiratory wheezes (Diffuse) Cardiovascular: No edema, Regular rate/rhythm Gastrointestinal: Normal bowel sounds, Soft and benign, Non-distended Musculoskeletal: No swelling, No erythema Integumentary: No rashes Neurological: Normal strength at 5/5 x4 extr - Studies Laboratory Data (last 24 hrs) 02/16/21 16:21: PT 12.2, INR 1.06 02/16/21 16:21: WBC 5.80, Hgb 14.7, Hct 45.5 H, Plt Count 139 L 02/16/21 16:21: Sodium 143, Potassium 4.0, BUN 14, Creatinine 0.64, Glucose 97, Magnesium 1.9, Total Bilirubin 0.2, AST 13 L, ALT 19, Alkaline Phosphatase 60 Assessment And Plan - Current Problems (Diagnosis) (1) Acute respiratory failure with hypoxia Current Visit: Yes Status: Acute (2) Acute exacerbation of COPD with asthma Onset Date: 07/13/18 Current Visit: No Status: Acute (3) Restless leg syndrome, nonfamilial, uncontrolled Current Visit: No Status: Acute (4) Bipolar disorder Onset Date: 05/24/16 Current Visit: No Status: Chronic Qualifiers: Active/Remission status: currently active Current bipolar episode type: mixed Current episode severity: unspecified Qualified Code(s): F31.60 - Bipolar disorder, current episode mixed, unspecified (5) Tobacco abuse Onset Date: 08/08/17 Current Visit: No Status: Chronic - Plan Continue IV steroid. Continue albuterol nebs. Added scheduled Ipratropium nebs. Weaned off oxygen. Continue home medications for other medical problems-bipolar disorder, restless leg syndrome. Tobacco cessation advised.
[2021-02-17] MEDS ORDERED: TRAZODONE 50 MG TABLET PO SCH (21:00)
[2021-02-18] MEDS: ALBUTEROL 2.5 MG/3 ML NEB SOL NEB SCH ×2 (01:05→07:20)
[2021-02-18] MEDS: IPRATROPIUM BROM 0.5MG/2.5ML NEB SCH ×2 (01:05→07:20)
[2021-02-18 03:43] VITALS: O2SAT 92
[2021-02-18] MEDS: METHYLPREDNISOLONE 40 MG INJ IV SCH ×3 (05:40→12:40)
[2021-02-18] MEDS: BUSPIRONE HCL 5 MG TABLET PO SCH (09:13)
[2021-02-18] MEDS: HEPARIN 5000 UNIT/ML 1 ML VIAL SQ SCH ×2 (09:13)
[2021-02-18] MEDS: BENZONATATE 100 MG CAP PO PRN ×2 (09:13)
[2021-02-18] MEDS: ROPINIROLE HCL 0.25 MG TAB PO SCH (09:14)
[2021-02-18 12:16] VITALS: BP 120/59; TEMP 97.7
--- NOTE | 2021-02-18 12:32 | P.DS ---
Admission Date: 02/18/21 Discharge Date: 02/18/21 Disposition: ROUTINE DISCHARGE Discharge Condition: FAIR Reason for Admission: SOB - Problems (1) Acute respiratory failure with hypoxia Status: Acute (2) Acute exacerbation of COPD with asthma Onset Date: 07/13/18 Status: Acute (3) Restless leg syndrome, nonfamilial, uncontrolled Status: Acute (4) Bipolar disorder Onset Date: 05/24/16 Status: Chronic Qualifiers: Active/Remission status: currently active Current bipolar episode type: mixed Current episode severity: unspecified Qualified Code(s): F31.60 - Bipolar disorder, current episode mixed, unspecified (5) Tobacco abuse Onset Date: 08/08/17 Status: Chronic Brief History of Present Illness: 70-year-old woman with a history of anxiety asthma, bipolar disorder, COPD, depression presented to the emergency department with a complaint of shortness of breath which has been progressive over the past 1 month. Patient was reported as she symptoms including cough and chest tightness. She received a steroid injection and nebulizer treatment at her PCPs office but patient remained hypoxic and was therefore directed to the emergency department for further management. Hospital Course: Patient admitted to the medical floor and treated for COPD exacerbation with IV steroids and scheduled bronchodilators. She gradually improved with treatment. Her oxygen requirement decreased to baseline. Patient reported significant improvement in her breathing today and back to baseline. She is discharged with oral prednisone and bronchodilator treatment. Vital Signs/Physical Exam: Temp Pulse Resp BP Pulse Ox 97.7 F 93 H 21 H 120/59 L 93 02/18/21 12:00 02/18/21 12:00 02/18/21 12:00 02/18/21 12:00 02/18/21 12:00 General: Alert, In no apparent distress, Oriented x3 HEENT: Mucous membr. moist/pink Neck: Supple, JVD not distended Respiratory: Normal air movement, Other (Mild scattered rhonchi.) Cardiovascular: No edema, Regular rate/rhythm, Normal S1 S2 Gastrointestinal: Normal bowel sounds, Soft and benign, Non-distended, No tenderness Musculoskeletal: No swelling Integumentary: No rashes Neurological: Normal strength at 5/5 x4 extr Laboratory Data at Discharge: WBC 4.30 K/uL (4.3-10.9) D 02/17/21 05:13 Hgb 14.1 g/dL (12.0-15.0) 02/17/21 05:13 Hct 42.9 % (36.0-45.0) 02/17/21 05:13 Plt Count 112 K/uL (152-406) L 02/17/21 05:13 PT 12.2 SECONDS (9.5-12.5) 02/16/21 16:21 INR 1.06 02/16/21 16:21 Sodium 141 mmol/L (136-145) 02/17/21 05:13 Potassium 4.6 mmol/L (3.5-5.1) 02/17/21 05:13 BUN 15 mg/dL (7-18) 02/17/21 05:13 Creatinine 0.59 mg/dL (0.55-1.3) 02/17/21 05:13 Glucose 149 mg/dL (74-106) H 02/17/21 05:13 Magnesium 1.9 mg/dL (1.8-2.4) 02/16/21 16:21 Total Bilirubin 0.2 mg/dL (0.2-1.0) 02/16/21 16:21 AST 13 U/L (15-37) L 02/16/21 16:21 ALT 19 U/L (12-78) 02/16/21 16:21 Alkaline Phosphatase 60 U/L (45-117) 02/16/21 16:21 Troponin I < 0.02 ng/mL (0.0-0.045) 02/16/21 18:06 Home Medications: Albuterol Inhaler [Ventolin Inhaler*] 2 puff IH Q4HR 09/30/18 Albuterol Sulfate 1 aer IH Q6H 09/30/18 Aripiprazole [Abilify] 20 mg PO DAILY 09/30/18 Budesonide/Formoterol Fumarate [Symbicort 80-4.5 Mcg Inhaler] 2 puff IH DAILY 09/30/18 Buspirone HCl 15 mg PO BID 09/30/18 Cholecalciferol (Vitamin D3) [Vitamin D3] 50,000 unit PO EVERY 7TH DAY 09/30/18 Duloxetine HCl 60 mg PO DAILY 09/30/18 Levothyroxine [Synthroid*] 0.025 mg PO [id number] 09/30/18 Montelukast [Singulair*] 10 mg PO DAILY 09/30/18 Ropinirole HCl [Requip*] 0.25 mg PO TID 09/30/18 Trazodone HCl 100 mg PO BEDTIME 09/30/18 Codeine/APAP [Tylenol #3*] 1 tab PO Q4HP PRN #30 tab 09/03/20 Benzonatate [Tessalon Perle*] 100 mg PO TID PRN #90 cap 02/18/21 Ipratropium Neb [Atrovent*] 0.5 mg NEB [id number] #120 amp 02/18/21 predniSONE [Deltasone*] 40 mg PO DAILY #30 tab 02/18/21 New Medications: Ipratropium Neb [Atrovent*] 0.5 mg NEB [id number] #120 amp predniSONE [Deltasone*] 40 mg PO DAILY #30 tab Benzonatate [Tessalon Perle*] 100 mg PO TID PRN #90 cap PRN Reason: Cough Diet: AHA Activity: Ad karey Followup: Anneliese Menchaca FNPC [Primary Care Provider] - 1 Week Addison Eisenberg MD [ACTIVE - CAN ADMIT] - (within 2 weeks) Time spent managing pt's care (in minutes): 35
== END 2021-02-18 14:15 | disposition home or self-care (01) | DRG 190 ==
LOC: ER 15:35 → ERHOLD 17:34 → 2ND 21:41 → OBSVTOIN 02-18 07:41
PROVIDERS: ADMIT Hospitalist; ATTEND Internal Medicine
DX: J44.1 Chronic obstructive pulmonary disease with (acute) exacerbation (principal); J96.01 Acute respiratory failure with hypoxia; J45.51 Severe persistent asthma with (acute) exacerbation; Z68.43 Body mass index [BMI] 50.0-59.9, adult; F31.60 Bipolar disorder, current episode mixed, unspecified; E66.09 Other obesity due to excess calories; F17.210 Nicotine dependence, cigarettes, uncomplicated; E03.9 Hypothyroidism, unspecified; F20.9 Schizophrenia, unspecified; G25.81 Restless legs syndrome; F41.9 Anxiety disorder, unspecified; Z79.890 Hormone replacement therapy; Z79.899 Other long term (current) drug therapy; Z90.710 Acquired absence of both cervix and uterus; Z90.49 Acquired absence of other specified parts of digestive tract; Z79.52 Long term (current) use of systemic steroids; Z98.51 Tubal ligation status; Z60.2 Problems related to living alone; Z20.822 Contact with and (suspected) exposure to COVID-19
CPT/HCPCS: 36415; 71045; 80048; 80076; 81003; 81015; 83605; 83735; 83880; 84484; 85025; 85379; 85610; 87040; 87070; 87086; 87088; 87205; 93005; 94640; 96365; 96366; 99285; G0378; J1644; J2920; J3475; U0003

== ENCOUNTER 2021-06-17 15:48 | Emergency (ER) | payer OTHER ==
--- OUTSIDE RECORDS SUMMARY | 2021-06-17 15:52 | XMS REPORT | Continuity of Care Document ---
:[address] [facility] t Address [address] [place] [address] Care Team Providers Name Role Phone Ben [...] Hematology (test code = PCOMMENT) Appears Adequate [id number] 14:37:00 Test Item Value Reference Range Interpretation [...] code 8.9 mg/dL 7.8-10.44 N = CA) [id number] 13:03:00 Test Item Value Reference Range Interpretation [...] UABLD) Small Negative A Urine Source: Urine [id number] 13:03:00 Test Item Value Reference Range Interpretation [...] LPF <2+ UAMCS) Urine Source: Urine VoidedCulture, [id number] 15:24:00 Test Item Value Reference Range Interpretation Comments Culture, Blood (test code = BC) NG5 Culture, [id number] 15:24:00 Test Item Value Reference Range Interpretation Comments Culture, Blood (test code = BC) NG5 [id number] 06:54:00 Test Item Value Reference Range Interpretation [...] code 9.5 mg/dL 7.8-10.44 N = CA) [id number] 06:35:00 Test Item Value Reference Range Interpretation [...] code = BASO#) 0.0 thou/uL 0.0-0.2 N [id number] 07:40:00 Test Item Value Reference Range Interpretation [...] code 8.9 mg/dL 7.8-10.44 N = CA) [id number] 07:19:00 Test Item Value Reference Range Interpretation [...] thou/uL 0.0-0.2 N Chemistry - BNP, HgbA1c, [id number] 19:31:00 Test Item Value Reference Range Interpretation Comments Chemistry - BNP, HgbA1c, PTHi 32.8 pg/mL 0-100 N (test code = BNP) [id number] 19:30:00 Test Item Value Reference Range Interpretation Comments Chemistry (test Less than < 0.028 code = TROPI-R) 0.010 ng/mL Reference Ra nge 0. 00 - 0.028 ng/mL Negative 0.029 - 0.29 n g/mL Indeterminate Greater or Equa l to 0.3 ng/mL St [facility] suggests DC [id number] 19:28:00 Test Item Value Reference Range Interpretation [...] U/L 8-55 N = ALT) Chemistry - [id number] 19:24:00 Test Item Value Reference Range Interpretation Comments Chemistry - Lactate (test code = 0.9 mmol/L 0.5-2.2 N LACTSEP-T) [id number] 19:14:00 Test Item Value Reference Range Interpretation [...] Center Pt Name: JEN DURON [address] [facility]. Phys: Ck Balbuena MD, [id number] : 1950 Age: 69 SEX:F [phone] Exam Date: 12/27/19 Status: REG CLI Acct: [id number] Loc: BICMAMMO Pt Unit #: [id number] Report #: [id number] CC: Ck Balbuena MD MAMMOGRAPHY REPORT Order # Category/Exam [id number] MMO/MAMMO Unilat Diag DDI LT+ALIREZA ([id number]): . Results 2 Left Breast MAMMO Unilat [...] compared to prior imaging studies performed at [facility] on 06/07/2019, 09/12/2019 and 12/27/2019. This study [...] Reported by: BRYAN CARTER MD Electonically Signed: [id number] Reported By: Bryan Carter MD Electronically Signed Date/Time: 12/27/19 1055 Technologist: JASS DictatedDate/Time: 12/27/19 Transcribed Date/Time: 12/27/19MAMMO Unilat Diag DDI LT+ALIREZA [facility] Pt Name: JEN DURON [address] [facility]. Phys: Ck Balbuena MD [place], [id number] : 1950 Age: 69 SEX:F [phone] Exam Date: 12/27/19 Status: REG CLI Acct: [id number] Loc: DAXA Pt Unit #: [id number] Report #: [id number] CC: Ck Balbuena MD [facility] Order # Category/Exam [id number] MMO/MAMMO Unilat Diag DDI LT+ALIREZA ([id number]): . Results 2 Left Breast MAMMO Unilat [...] compared to prior imaging studies performed at [facility] on 06/07/2019, 09/12/2019 and 12/27/2019. This study [...] Reported by: BRYAN CARTER MD Electonically Signed: [id number] Reported By: Bryan Carter MD Electronically Signed Date/Time: 12/27/19 1055 Technologist: [email or web address] DictatedDate/Time: 12/27/19 Transcribed Date/Time: 12/27/19US Breast Limited [facility]Diagnostic [facility] Pt Name: JEN DURON [address] [facility]. Phys: Ck Balbuena MD [place], [id number] : 1950 Age: 69 SEX:F [phone] Exam Date: 12/27/19 Status: REG CLI Acct: [id number] Loc: BICMAMMO Pt Unit #: [id number] Report #: [id number] CC: Ck Balbuena MD ULTRASOUND REPORT Order # Category/Exam [id number] ULT/US Breast Limited Lt ([id number]): . Results 2 LEFT BREAST ULTRASOUND: Date: [...] Tissue [facility] Pt Name: EJN DURON Lydia [address] Phys: [place] [id number] : 1950 Age: 68 SEX:F [phone] Exam Date: 10/18/19 Status: DEP ER Acct: [id number] Loc: [facility] Pt Unit #: [id number] Report #: [id number] CC: MELLO GRIGSBY MD CATSCAN REPORT Order # Category/Exam [id number] CT/CT Neck Soft Tissue W Con ([id number]): . Results POSTCONTRAST SOFT TISSUE NECK CT [...] 10/18/19 1521 Transcribed Date/Time:XR Chest 1 View [facility] Pt Name: JEN DURON [address] Phys: [place] [id number] : 1950 Age: 68 SEX:F [phone] Exam Date: 10/18/19 Status: DEP ER Acct: [id number] Loc: [facility] Pt Unit #: [id number] Report #: [id number] CC: MELLO GRIGSBY MD IMAGING SERVICES REPORT Order # Category/Exam [id number] RAD/XR Chest 1 View Portable ([id number]): . Results PORTABLE CHEST: 10/18/19 Comparison is [...] Imaging Center Pt Name: JEN DURON [address] [facility]. Phys: Ck Balbuena MD [place], [id number] : 1950 Age: 68 SEX:F [phone] Exam Date: 09/12/19 Status: REG CLI Acct: [id number] Loc: BICULT Pt Unit #: [id number] Report #: [id number] CC: Ck Balbuena MD ULTRASOUND REPORT Order # Category/Exam [id number] ULT/US Breast Limited ([id number]): . Results 3 LEFT BREAST DIAGNOSTIC ULTRASOUND: [...] Imaging Center Pt Name: JEN DURON [address] [facility]. Phys: Ck Balbuena MD [place], [id number] : 1950 Age: 68 SEX:F [phone] Exam Date: 06/07/19 Status: REG CLI Acct: [id number] [facility] Unit #: [id number] Report #: [id number] CC: Ck Balbuena MD [facility] REPORT Order # Category/Exam [id number] MMO/MAMMO Bilat Diag DDI+ALIREZA ([id number]): . Results 3 Bilateral MAMMO Bilat Diag [...] compared to prior imaging studies performed at [facility] on 06/07/2019, and at [facility] on 09/29/2018. MAMMOGRAM FINDINGS: The breasts are [...] benign finding - short interval follow-up suggested. [facility] will notify the patientof the need for additional imaging services. MAMMOGRAPHY NOTE: 1. A negative mammogram report should not delay a biopsy if a dominant of clinically suspicious mass is present. 2. Approximately 10% to 15% of breast cancers are not detected by mammography. 3. Adenosis and dense breasts may obscure an underlying neoplasm. Reported by: JAVY MULLINS MD Electonically Signed: [id number] Reported By: Javy Mullins MD Electronically Signed Date/Time: 06/07/19 0916 Technologist: JENNIFER Dictated Date/Time: 06/07/19 Transcribed Date/Time: 06/07/19 [facility] Pt Name: JEN DURON [address] [facility]. Phys: Ck Balbuena MD, [id number] : 1950 Age: 68 SEX:F [phone] Exam Date: 06/07/19 Status: REG CLI Acct: [id number] Loc: BICMAMMO Pt Unit #: [id number] Report #: [id number] CC: Ck Balbuena MD ULTRASOUND REPORT Order # Category/Exam ULT/US Breast Limited Lt ([id number]): . Results 3 DIAGNOSTIC LEFT BREAST ULTRASOUND: [...] Center Pt Name: DURON,JEN G [address] [facility]. Phys: Ck Balbuena MD [place], [id number] : 1950 Age: 68 SEX:F [phone] Exam Date: 06/07/19 Status: DEP CLI Acct: [id number] Loc: BICMAMMO Pt Unit #: [id number] Report #: [id number] CC: Ck Balbuena MD MAMMOGRAPHY REPORT Order # Category/Exam MMO/MAMMO Bilat Diag DDI+ALIREZA ([id number]): . Results 3 Bilateral MAMMO Bilat Diag [...] compared to prior imaging studies performed at [facility] on 06/07/2019, and at [facility] on 09/29/2018. MAMMOGRAM FINDINGS: The breasts are [...] benign finding - short interval follow-up suggested. [facility] will notify the patientof the need for additional imaging services. MAMMOGRAPHY NOTE: 1. A negative mammogram report should not delay a biopsy if a dominant of clinically suspicious mass is present. 2. Approximately 10% to 15% of breast cancers are not detected by mammography. 3. Adenosis and dense breasts may obscure an underlying neoplasm. Reported by: JAVY MULLINS MD Electonically Signed: [id number] Reported By: Javy Mullins MD Electronically Signed Date/Time: 06/07/19 0916 Technologist: JENNIFER Dictated Date/Time: 06/07/19 Transcribed Date/Time: 06/07/19XR Chest [facility] Name: JEN DURON [address] Phys: ESTEPHANIE [place] [address]YCY: 1950 Age: 68 SEX:F [phone] Exam Date: 02/17/19 Status: DEP ER Acct: [id number] Loc: MARIA E Pt Unit #: [id number] Report #: [id number] CC: ESTEPHANIE MANRIQUE MD IMAGING SERVICES REPORT Order # Category/Exam [id number] RAD/XR Chest Pa Lat STANDARD ([id number]): . Results T CHEST TWO VIEWS: 02/17/19 [...]
[2021-06-17 16:25] LABS: Absolute Lymphocytes (CBC) 0.8 K/uL (0.7-4.9); Basophils % 0.6 % (0-1.3); Hematocrit 39.7 % (36.0-45.0); Lymphocytes % 20.2 % (15.3-44.8); MPV 8.5 fL (7.6-11.3); RBC Red Blood Cell Count 4.13 M/uL (3.86-4.86)
[2021-06-17 16:33] LABS: Protime INR 1.06
[2021-06-17] MEDS ORDERED: IPRATROPIUM BROM 0.5MG/2.5ML ONE (16:43)
[2021-06-17] MEDS ORDERED: ALBUTEROL 2.5 MG/3 ML NEB SOL ONE (16:43)
[2021-06-17 16:50] LABS: BUN Blood Urea Nitrogen 16 mg/dL (7-18); Bicarbonate 33 mmol/L (21-32); Glucose Level 92 mg/dL (74-106); Magnesium 1.8 mg/dL (1.8-2.4); NT PRO-BNP 75 pg/mL (<125); Sodium Level 142 mmol/L (136-145); Troponin (Emerg Dept Use Only) < 0.02 ng/mL (0.0-0.045)
--- NOTE | 2021-06-17 17:23 | RAD REPORT ---
EXAM DESCRIPTION: RAD - Chest Single View - 06/17/2021 5:12 pm CLINICAL HISTORY: sob Chest pain. COMPARISON: Chest Single View dated 02/16/2021; Chest Pa And Lat (2 Views) dated 09/02/2020; Chest Sin gle View dated 07/22/2020; Chest Pa And Lat (2 Views) dated 07/10/2020 FINDINGS: Portable technique limits examination quality. The lungs are grossly clear. The heart is normal in size. No displaced fractures. IMPRESSION: No acute intrathoracic process suspected.
[2021-06-17 17:43] LABS: ALT/SGPT 21 U/L (12-78); AST/SGOT 18 U/L (15-37); Albumin 3.5 g/dL (3.4-5.0); Alkaline Phosphatase 61 U/L (45-117); Bilirubin Direct < 0.1 mg/dL (0-0.2); Bilirubin Total 0.4 mg/dL (0.2-1.0); Protein, Total 7.3 g/dL (6.4-8.2)
[2021-06-17] MEDS ORDERED: METHYLPREDNISOLONE 125 MG INJ ONE (17:52)
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
[2021-06-17] MEDS ORDERED: ACETAMINOPHEN 500 MG TAB ONE (18:12)
[2021-06-17 20:42] VITALS: TEMP 98.3
[2021-06-17 20:43] VITALS: BP 127/53; O2SAT 99
== END 2021-06-17 19:53 | disposition home or self-care (01) ==
LOC: ER 15:48
DX: J44.1 Chronic obstructive pulmonary disease with (acute) exacerbation (principal); Z20.822 Contact with and (suspected) exposure to COVID-19
CPT/HCPCS: 93005 ×2; 85025; 80048; 36415; 83735; 85610; 80076; 84484; 83880; 71045; 96374; 99284; U0003; J2930

== ENCOUNTER 2021-06-18 14:17 | Observation (INO) | payer OTHER ==
[2021-06-18 16:33] LABS: Basophils % 0.4 % (0-1.3); Hematocrit 40.6 % (36.0-45.0); Lymphocytes % 11.7 % (15.3-44.8); MPV 8.2 fL (7.6-11.3)
[2021-06-18 16:36] LABS: Protime INR 1.03
[2021-06-18 16:54] LABS: ALT/SGPT 21 U/L (12-78); AST/SGOT 11 U/L (15-37); Albumin 3.7 g/dL (3.4-5.0); Alkaline Phosphatase 66 U/L (45-117); BUN Blood Urea Nitrogen 20 mg/dL (7-18); Bicarbonate 34 mmol/L (21-32); Bilirubin Direct < 0.1 mg/dL (0-0.2); Bilirubin Total 0.3 mg/dL (0.2-1.0); Glucose Level 91 mg/dL (74-106); NT PRO-BNP 126 pg/mL (<125); Potassium 3.9 mmol/L (3.5-5.1); Protein, Total 7.7 g/dL (6.4-8.2); Sodium Level 142 mmol/L (136-145); Troponin (Emerg Dept Use Only) < 0.02 ng/mL (0.0-0.045)
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
[2021-06-18] MEDS ORDERED: METHOTREXATE 25 MG/ML VIAL IM ONE (19:00)
[2021-06-18] MEDS ORDERED: ACETAMINOPHEN 500 MG TAB PO PRN (19:56)
[2021-06-18] MEDS ORDERED: ONDANSETRON 4 MG/2 ML VIAL IV PRN (19:56)
[2021-06-18] MEDS ORDERED: ALBUTEROL 2.5 MG/3 ML NEB SOL NEB PRN (19:56)
[2021-06-19] MEDS ORDERED: ENOXAPARIN 40 MG/0.4 ML SQ ONE (07:45)
[2021-06-19 07:50] VITALS: BMI 50.2
[2021-06-19] MEDS ORDERED: PNEUMOCOCCAL VACCINE 0.5 ML IMVAC ONE (08:00)
--- NOTE | 2021-06-19 08:14 | EKG ---
Test Date: 2021-06-18 Test Time: 16:37:06 Uniform Room Attendant: LISSY MEASUREMENT RESULTS: Intervals: Rate: 98 UT: 168 QRSD: 82 QT: 332 QTc: 423 [place]: P: 35 UT: 168 QRS: 50 T: 48 INTERPRETIVE STATEMENTS: Normal sinus rhythm Normal ECG Compared to ECG 06/17/2021 17:19:22 Ventricular premature complex(es) no longer present Electronically Signed On 06-19-21 08:12:56 CDT by Boni Grier
[2021-06-19 08:16] VITALS: O2SAT 99
[2021-06-19] MEDS ORDERED: ENOXAPARIN 40 MG/0.4 ML SQ SCH (09:00)
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
[2021-06-19 12:01] VITALS: BP 137/81; TEMP 98.3
== END 2021-06-19 11:50 | disposition home or self-care (01) ==
LOC: ER 14:17 → ERHOLD 17:33
PROVIDERS: ADMIT Hospitalist; ATTEND Hospitalist
DX: J44.9 Chronic obstructive pulmonary disease, unspecified (principal); E03.9 Hypothyroidism, unspecified; F31.9 Bipolar disorder, unspecified; F20.9 Schizophrenia, unspecified; F41.9 Anxiety disorder, unspecified; Z99.81 Dependence on supplemental oxygen; E66.01 Morbid (severe) obesity due to excess calories; Z68.43 Body mass index [BMI] 50.0-59.9, adult; Z87.891 Personal history of nicotine dependence; Z91.048 Other nonmedicinal substance allergy status; Z86.19 Personal history of other infectious and parasitic diseases; Z90.49 Acquired absence of other specified parts of digestive tract; Z90.710 Acquired absence of both cervix and uterus; Z20.822 Contact with and (suspected) exposure to COVID-19; Z82.49 Family history of ischemic heart disease and other diseases of the circulatory system; Z82.0 Family history of epilepsy and other diseases of the nervous system; Z80.9 Family history of malignant neoplasm, unspecified
CPT/HCPCS: 93005; 85025; 80048; 36415; 83735; 85610; 80076; 84484; 83880; 94760 ×2; 99284; U0003; J1650; J9260; G0378 ×3

== ENCOUNTER 2021-07-04 16:01 | Inpatient (IN) | payer OTHER ==
[2021-07-04 16:29] LABS: Absolute Lymphocytes (CBC) 0.8 K/uL (0.7-4.9); Basophils % 0.8 % (0-1.3); Hematocrit 41.8 % (36.0-45.0); MPV 8.3 fL (7.6-11.3); RBC Red Blood Cell Count 4.36 M/uL (3.86-4.86)
[2021-07-04 16:38] LABS: Protime INR 1.03
[2021-07-04 16:47] LABS: ALT/SGPT 27 U/L (12-78); AST/SGOT 14 U/L (15-37); Albumin 3.5 g/dL (3.4-5.0); Alkaline Phosphatase 70 U/L (45-117); BUN Blood Urea Nitrogen 13 mg/dL (7-18); Bicarbonate 36 mmol/L (21-32); Bilirubin Direct < 0.1 mg/dL (0-0.2); Bilirubin Total 0.2 mg/dL (0.2-1.0); Glucose Level 96 mg/dL (74-106); Magnesium 1.9 mg/dL (1.8-2.4); NT PRO-BNP 60 pg/mL (<125); Potassium 3.9 mmol/L (3.5-5.1); Protein, Total 7.4 g/dL (6.4-8.2); Sodium Level 143 mmol/L (136-145); Troponin (Emerg Dept Use Only) < 0.02 ng/mL (0.0-0.045)
[2021-07-04] MEDS ORDERED: LORazepam 2 MG/ML VIAL ONE (16:48)
[2021-07-04] MEDS ORDERED: ONDANSETRON 4 MG/2 ML VIAL ONE (16:48)
[2021-07-04] MEDS ORDERED: MORPHINE 4 MG/ML SYR ONE (16:48)
--- NOTE | 2021-07-04 17:15 | RAD REPORT ---
EXAM DESCRIPTION: RAD - Chest Single View - 07/04/2021 4:56 pm CLINICAL HISTORY: CHEST PAIN COMPARISON: Chest Single View dated 06/17/2021; Chest Single View dated 02/16/2021; Chest Pa And Lat ( 2 Views) dated 09/02/2020; Chest Single View dated 07/22/2020 FINDINGS: Lines: None. Lungs: Low lung volumes with mild basilar opacities. Pleural: No significant pleural effusions or pneumothorax. Cardiac: Mild cardiomegaly. Atherosclerosis. Bones: No acute fractures. Other: IMPRESSION: Mild basilar opacities favored to represent atelectasis though pneumonia difficult to ex clude radiographically.
--- NOTE | 2021-07-04 17:54 | EDPHYS ---
Physician Documentation [facility] Name: Cassia Garcia Age: 70 yrs Sex: Female : 1950 Arrival Date: 07/04/2021 Time: 16:02 Bed 6 Private MD: ED Physician Bacilio Crowe HPI: 07/04 16:29 This 70 yrs old Female presents to ER via EMS with complaints of chest pain. ma2 16:29 The patient or guardian reports chest pain that is located primarily in the substernal ma2 area. Onset: gradually, 1 day(s) ago. Associated signs and symptoms: Pertinent negatives: diaphoresis, lower extremity pain, lower extremity swelling, lightheadedness, syncope, vomiting. Severity of pain: At its worst the pain was moderate in the emergency department the pain is unchanged. The patient has experienced similar episodes in the past. Historical: - Allergies: 16:12 paper tape; jd3 - Home Meds: 16:12 aripiprazole Oral [Active]; benzonatate Oral [Active]; Buspirone Oral [Active]; jd3 duloxetine Oral [Active]; levothyroxine oral [Active]; montelukast Oral [Active]; Nystatin Vaginal [Active]; ropinirole Oral [Active]; Trazodone Oral [Active]; - PMHx: 16:12 Anxiety; COPD; Bipolar disorder; Schizophrenia; jd3 - PSHx: 16:12 section; Cholecystectomy; hysterectomy; jd3 - Immunization history:: Adult Immunizations up to date, Client reports receiving the 2nd dose of the Covid vaccine, Date received: March 2021. - Social history:: Smoking status: Patient/guardian denies using tobacco, Stopped _ months ago 5 Patient/guardian denies using alcohol, street drugs, The patient lives with family. - Family history:: not pertinent. ROS: 16:29 Constitutional: Negative for fever, chills, and weight loss. ma2 16:29 All other systems are negative. Exam: 16:29 Constitutional: This is a well developed, well nourished patient who is awake, alert, ma2 and in no acute distress. Head/Face: Normocephalic, atraumatic. Eyes: Pupils equal round and reactive to light, extra-ocular motions intact. Lids and lashes normal. Conjunctiva and sclera are non-icteric and not injected. Cornea within normal limits. Periorbital areas with no swelling, redness, or edema. ENT: Nares patent. No nasal discharge, no septal abnormalities noted. Tympanic membranes are normal and external auditory canals are clear. Oropharynx with no redness, swelling, or masses, exudates, or evidence of obstruction, uvula midline. Mucous membranes moist. Neck: Trachea midline, no thyromegaly or masses palpated, and no cervical lymphadenopathy. Supple, full range of motion without nuchal rigidity, or vertebral point tenderness. No Meningismus. Chest/axilla: Normal chest wall appearance and motion. Nontender with no deformity. No lesions are appreciated. Cardiovascular: Regular rate and rhythm with a normal S1 and S2. No gallops, murmurs, or rubs. Normal PMI, no JVD. No pulse deficits. Respiratory: Lungs have equal breath sounds bilaterally, clear to auscultation and percussion. No rales, rhonchi or wheezes noted. No increased work of breathing, no retractions or nasal flaring. Abdomen/GI: Soft, non-tender, with normal bowel sounds. No distension or tympany. No guarding or rebound. No evidence of tenderness throughout. Skin: Warm, dry with normal turgor. Normal color with no rashes, no lesions, and no evidence of cellulitis. MS/ Extremity: Pulses equal, no cyanosis. Neurovascular intact. Full, normal range of motion. Neuro: Awake and alert, GCS 15, oriented to person, place, time, and situation. Cranial nerves II-XII grossly intact. Motor strength 5/5 in all extremities. Sensory grossly intact. Cerebellar exam normal. Normal gait. Vital Signs: 16:12 BP 150 / 80; Pulse 115; Resp 20 S; Temp 98.1(O); Pulse Ox 93% on 3 lpm NC; Weight 77.11 jd3 kg (R); Height 5 ft. 1 in. (154.94 cm) (R); Pain 9/10; 18:21 BP 124 / 69; Pulse 107; Resp 23 S; Pulse Ox 94% on 3 lpm NC; jd3 16:12 Body Mass Index 32.12 (77.11 kg, 154.94 cm) jd3 MDM: 16:04 Patient medically screened. ma2 16:29 Differential diagnosis: abnormal EKG, esophagitis, gastritis, gastroesophageal reflux ma2 disease (GERD), pancreatitis, pericarditis, pleurisy, pneumothorax, stable angina. HEART Score: History: Moderately Suspicious (1), ECG: Non specific repolarization disturbance / LBTB / PM (1), Age: > or = 65 years (2), Risk Factors: 1 or 2 risk factors (1), Troponin: < or = 1 x Normal Limit (0), Total Score = 5. The patient was not given aspirin in the Emergency Department. Administered by EMS. 17:52 Data reviewed: vital signs, nurses notes, EMS record. Counseling: I had a detailed [facility] discussion with the patient and/or guardian regarding: the historical points, exam findings, and any diagnostic results supporting the discharge/admit diagnosis, the presence of at least one elevated blood pressure reading (>120/80) during this emergency department visit, the need for further work-up and treatment in the hospital. 07/04 16:04 Order name: Basic Metabolic Panel [facility] 07/04 16:04 Order name: CBC with Diff [facility] 07/04 16:04 Order name: LFT's [facility] 07/04 16:04 Order name: Magnesium [facility] 07/04 16:04 Order name: NT PRO-BNP; Complete Time: 17:17 [facility] 07/04 16:04 Order name: PT-INR; Complete Time: 17:17 [facility] 07/04 16:04 Order name: Troponin (emerg Dept Use Only); Complete Time: 17:17 [facility] 07/04 16:04 Order name: Basic Metabolic Panel; Complete Time: 17:17 EDMS 07/04 16:05 Order name: CBC with Automated Diff; Complete Time: 16:38 EDMS 07/04 16:05 Order name: Liver (Hepatic) Function; Complete Time: 17:17 EDMS 07/04 16:05 Order name: Magnesium; Complete Time: 17:17 EDMS 07/04 17:27 Order name: SARS-COV-2 RT PCR; Complete Time: 17:27 EDMS 07/04 17:51 Order name: ABG [facility] 07/04 16:04 Order name: XRAY Chest (1 view); Complete Time: 17:17 [facility] 07/04 16:04 Order name: EKG; Complete Time: 16:05 hi2 07/04 16:04 Order name: Cardiac monitoring; Complete Time: 16:07 ma2 07/04 16:04 Order name: EKG - Nurse/Tech; Complete Time: 16:15 ma2 07/04 16:04 Order name: IV Saline Lock; Complete Time: 16:15 ma2 07/04 16:04 Order name: Labs collected and sent; Complete Time: 16:15 ma2 07/04 16:04 Order name: O2 Per Protocol; Complete Time: 16:07 ma2 07/04 17:52 Order name: ABG Arterial Blood Gas EDMS 07/04 18:18 Order name: BIPAP la1 07/04 16:04 Order name: O2 Sat Monitoring; Complete Time: 16:06 ma2 Administered Medications: 16:30 Drug: Ativan (LORazepam) 1 mg Route: IVP; Site: left antecubital; jd3 17:30 Follow up: Response: No adverse reaction jd3 16:30 Drug: morphine 4 mg Route: IVP; Site: left antecubital; jd3 17:30 Follow up: Response: No adverse reaction; RASS: Alert and Calm (0) jd3 16:30 Drug: Zofran (Ondansetron) 4 mg Route: IVP; Site: left antecubital; jd3 17:30 Follow up: Response: No adverse reaction jd3 18:21 Drug: AZITHromycin 500 mg Route: IVPB; Infused Over: 1 hrs; Site: left antecubital; jd3 18:42 Drug: Albuterol - atroVENT (ipratropium) (3:1) (2.5 mg - 0.5 mg) 3 ml Route: Nebulizer; jd3 18:42 Drug: SOLU-Medrol (methylPrednisoLONE) 125 mg Route: IVP; Site: left antecubital; jd3 18:42 Not Given (Other Intervention Used; given per EMS): Aspirin Chewable Tablet 324 mg PO jd3 once; 81 mg tablets x 4 Disposition Summary: 07/04/21 17:53 Hospitalization Ordered Hospitalization Status: Observation ma2 Provider: Rogelio Garcia Location: Telemetry/MedSurg (Inpatient) ma2 Condition: Stable ma2 Problem: new ma2 Symptoms: are unchanged ma2 Bed/Room Type: Standard hi2 Room Assignment: 204(07/04/21 19:31) eb Diagnosis - Chest pain, unspecified ma2 - Other pneumonia, unspecified organism ma2 Forms: - Medication Reconciliation Form ma2 - SBAR form ma2 Signatures: Dispatcher [employer] EDMS Juaquin Martinez, GENOVEVA-C ROLL FORMING MACHINE OPERATOR-Cla1 Declan Ron RN RN jd3 Bacilio Crowe MD MD ma2 Jessica Harrison Corrections: (The following items were deleted from the chart) 16:27 16:12 CORONAVIRUS+LAB.BRZ ordered. EDNE EDMS 19:31 17:53 ma2 eb
--- NOTE | 2021-07-04 17:54 | ER ---
Nurse's Notes [facility] Name: Cassia Garcia Age: 70 yrs Sex: Female : 1950 Arrival Date: 07/04/2021 Time: 16:02 Bed 6 Private MD: Diagnosis: Chest pain, unspecified;Other pneumonia, unspecified organism Presentation: 07/04 16:07 Chief complaint: EMS states: "pt reporting chest pain that started 5 hours ago. the jd3 pain is reproducible with turning and pressure. 324 of aspirin given as well as a 20 G IV started to the left AC. EKG showed sinus tachycardia.". Coronavirus screen: At this time, the client does not indicate any symptoms associated with coronavirus-19. Ebola Screen: Patient negative for fever greater than or equal to 101.5 degrees Fahrenheit, and additional compatible Ebola Virus Disease symptoms. Initial Sepsis Screen: Does the patient meet any 2 criteria? No. Patient's initial sepsis screen is negative. Does the patient have a suspected source of infection? No. Patient's initial sepsis screen is negative. Risk Assessment: Do you want to hurt yourself or someone else? Patient reports no desire to harm self or others. Onset of symptoms was July 04, 2021. 16:07 Method Of Arrival: EMS: [facility] jd3 16:07 Acuity: SAPPHIRE 3 jd3 Historical: - Allergies: 16:12 paper tape; jd3 - Home Meds: 16:12 aripiprazole Oral [Active]; benzonatate Oral [Active]; Buspirone Oral [Active]; jd3 duloxetine Oral [Active]; levothyroxine oral [Active]; montelukast Oral [Active]; Nystatin Vaginal [Active]; ropinirole Oral [Active]; Trazodone Oral [Active]; - PMHx: 16:12 Anxiety; COPD; Bipolar disorder; Schizophrenia; jd3 - PSHx: 16:12 section; Cholecystectomy; hysterectomy; jd3 - Immunization history:: Adult Immunizations up to date, Client reports receiving the 2nd dose of the Covid vaccine, Date received: March 2021. - Social history:: Smoking status: Patient/guardian denies using tobacco, Stopped _ months ago 5 Patient/guardian denies using alcohol, street drugs, The patient lives with family. - Family history:: not pertinent. Screenin:14 Abuse screen: Denies threats or abuse. Nutritional screening: No deficits noted. jd3 Tuberculosis screening: No symptoms or risk factors identified. Fall Risk IV access (20 points). Ambulatory Aid- None/Bed Rest/Nurse Assist (0 pts). Gait- Weak (10 pts.). Mental Status- Oriented to own ability (0 pts). Total [place] Fall Scale indicates Low Risk Score (25-44 pts). Fall prevention measures have been instituted. Side Rails Up X 2 Placed close to Nursing Station Frequent Obs/Assesments occuring. Assessment: 16:13 General: Appears uncomfortable, Behavior is calm, cooperative, appropriate for age. jd3 Pain: Complains of pain in chest Pain radiates to back Quality of pain is described as pressure, shooting, squeezing. Neuro: Level of Consciousness is awake, alert, obeys commands, Oriented to person, place, time, situation. Cardiovascular: Reports chest pain, Heart tones present Capillary refill < 3 seconds Rhythm is irregular. Respiratory: Reports shortness of breath Airway is patent Respiratory effort is unlabored, Respiratory pattern is regular, symmetrical, Breath sounds are diminished bilaterally. GI: No signs and/or symptoms were reported involving the gastrointestinal system. Patient currently denies constipation, diarrhea, nausea, vomiting. : No signs and/or symptoms were reported regarding the genitourinary system. EENT: No signs and/or symptoms were reported regarding the EENT system. Derm: Skin is intact, Skin is dry, Skin is normal, Skin temperature is warm. Musculoskeletal: Circulation, motion, and sensation intact. Range of motion: intact in all extremities. 18:21 Reassessment: Patient appears in no apparent distress at this time. No changes from jd3 previously documented assessment. Patient and/or family updated on plan of care and expected duration. Pain level reassessed. Patient is alert, oriented x 3, equal unlabored respirations, skin warm/dry/pink. Vital Signs: 16:12 BP 150 / 80; Pulse 115; Resp 20 S; Temp 98.1(O); Pulse Ox 93% on 3 lpm NC; Weight 77.11 jd3 kg (R); Height 5 ft. 1 in. (154.94 cm) (R); Pain 9/10; 18:21 BP 124 / 69; Pulse 107; Resp 23 S; Pulse Ox 94% on 3 lpm NC; jd3 16:12 Body Mass Index 32.12 (77.11 kg, 154.94 cm) jd3 ED Course: 16:02 Patient arrived in ED. tr6 16:04 Bacilio Crowe MD is Attending Physician. ma2 16:06 Declan Ron, PURVI is Primary Nurse. jd3 16:10 Triage completed. jd3 16:13 Arm band placed on. jd3 16:15 Patient has correct armband on for positive identification. Placed in gown. Bed in low jd3 position. Call light in reach. Side rails up X2. dental floss packer on. Pulse ox on. NIBP on. 16:18 Maintain EMS IV. Dressing intact. Good blood return noted. Site clean \\T\\ dry. Gauge \\T\\ vladislav 3 site: 20 G to the left AC. 16:56 XRAY Chest (1 view) In Process Unspecified. EDMS 17:53 Rogelio Garcia MD is Hospitalizing Provider. ma2 Administered Medications: 16:30 Drug: Ativan (LORazepam) 1 mg Route: IVP; Site: left antecubital; jd3 17:30 Follow up: Response: No adverse reaction jd3 16:30 Drug: morphine 4 mg Route: IVP; Site: left antecubital; jd3 17:30 Follow up: Response: No adverse reaction; RASS: Alert and Calm (0) jd3 16:30 Drug: Zofran (Ondansetron) 4 mg Route: IVP; Site: left antecubital; jd3 17:30 Follow up: Response: No adverse reaction jd3 18:21 Drug: AZITHromycin 500 mg Route: IVPB; Infused Over: 1 hrs; Site: left antecubital; jd3 18:42 Drug: Albuterol - atroVENT (ipratropium) (3:1) (2.5 mg - 0.5 mg) 3 ml Route: Nebulizer; jd3 18:42 Drug: SOLU-Medrol (methylPrednisoLONE) 125 mg Route: IVP; Site: left antecubital; jd3 18:42 Not Given (Other Intervention Used; given per EMS): Aspirin Chewable Tablet 324 mg PO jd3 once; 81 mg tablets x 4 Outcome: 17:53 Decision to Hospitalize by Provider. ma2 20:13 Patient left the ED. cw2 Signatures: Dispatcher [employer] Declan Lujan RN RN jd3 Bacilio Crowe MD MD ma2 Beverly Falcon RN RN tr6 Ilya Garcia RN RN cw2
--- NOTE | 2021-07-04 18:35 | P.HP ---
Certification for Inpatient Patient admitted to: Inpatient With expected LOS: >2 Midnights Patient will require the following post-hospital care: None Practitioner: I am a practitioner with admitting privileges, knowledge of patient current condition, hospital course, and medical plan of care. Services: Services provided to patient in accordance with Admission requirements found in Title 42 Section 412.3 of the Code of Federal Regulations Patient History Date of Service: 07/04/21 Primary Care Provider: ezequiel Menchaca Reason for admission: Chest pain, respiratory failure History of Present Illness: 70-year-old female with history of COPD on home oxygen to 3 L, bipolar, schizophrenia, hypothyroidism, former tobacco abuse, obesity presents emerged part for chest pain. Patient ports chest pain began around 10 AM this morning described as pressure-like radiating to the back associated with some shortness of breath. Patient declines similar symptoms in the past has never had a formal cardiac evaluation including stress test or cardiac cath. Patient was evaluated in the emergency department labs are significant for CO2 36, after seeing CO2 and patient on oxygen ABG was added by me which demonstrated pH 7.27 PCO2 81.2 O2 73.5. Patient with acute on chronic hypercapnic/hypoxic respiratory failure related to COPD with exacerbation. Patient also with chest pain, ED provider just admit for further evaluation and management. Allergies No Known Allergies Allergy (Verified 09/02/20 13:00) Home Medications: Albuterol Inhaler [Ventolin Inhaler*] 2 puff IH Q4HR 09/30/18 Albuterol Sulfate 1 aer IH Q6H 09/30/18 Aripiprazole [Abilify] 20 mg PO DAILY 09/30/18 Budesonide/Formoterol Fumarate [Symbicort 80-4.5 Mcg Inhaler] 2 puff IH DAILY 09/30/18 Buspirone HCl 15 mg PO BID 09/30/18 Cholecalciferol (Vitamin D3) [Vitamin D3] 50,000 unit PO EVERY 7TH DAY 09/30/18 Duloxetine HCl 60 mg PO DAILY 09/30/18 Levothyroxine [Synthroid*] 0.025 mg PO [id number] 09/30/18 Montelukast [Singulair*] 10 mg PO DAILY 09/30/18 Ropinirole HCl [Requip*] 0.25 mg PO TID 09/30/18 Trazodone HCl 100 mg PO BEDTIME 09/30/18 Codeine/APAP [Tylenol #3*] 1 tab PO Q4HP PRN #30 tab 09/03/20 Benzonatate [Tessalon Perle*] 100 mg PO TID PRN #90 cap 02/18/21 Ipratropium Neb [Atrovent*] 0.5 mg NEB [id number] #120 amp 02/18/21 predniSONE [Deltasone*] 40 mg PO DAILY #30 tab 02/18/21 - Past Medical/Surgical History Diabetic: No -: Bipolar disorder -: Schizophrenia -: COPD, oxygen-dependent -: Former tobacco use -: Obesity -: Heppatitis B -: COPD -: L breast lumpectomy -: mack -: hysterectomy -: tubal ligation -: appendectomy Psychosocial/ Personal History: Patient is a . She lives by herself. She has 1 child. - Family History Father -: Heart disease Notes: dementia Mother -: Cancer - Social History Smoking Status: Former smoker Alcohol use: Yes CD- Drugs: No Caffeine use: Yes Place of Residence: Home Review of Systems 10-point ROS is otherwise unremarkable Respiratory: Cough, Shortness of Breath Cardiovascular: Chest Pain Physical Examination - Physical Exam General: Alert, In no apparent distress, Oriented x3 HEENT: Atraumatic, PERRLA, Mucous membr. moist/pink, EOMI, Sclerae nonicteric Neck: Supple, 2+ carotid pulse no bruit, No LAD, Without JVD or thyroid abnormality Respiratory: Diminished Cardiovascular: Regular rate/rhythm, Normal S1 S2 Capillary refill: <2 Seconds Gastrointestinal: Normal bowel sounds, No tenderness Musculoskeletal: No tenderness Integumentary: No rashes Neurological: Normal gait, Normal speech, Normal strength at 5/5 x4 extr, Normal tone, Normal affect Lymphatics: No axilla or inguinal lymphadenopathy - Studies Laboratory Data (last 24 hrs) 07/04/21 16:08: PT 11.9, INR 1.03 07/04/21 16:08: WBC 4.50, Hgb 13.7, Hct 41.8, Plt Count 137 L 07/04/21 16:08: Sodium 143, Potassium 3.9, BUN 13, Creatinine 0.65, Glucose 96, Magnesium 1.9, Total Bilirubin 0.2, AST 14 L, ALT 27, Alkaline Phosphatase 70 Assessment and Plan - Plan Assessment: Acute on chronic hypoxic/hypercapnic respiratory failure secondary to COPDon home oxygen 3 L-with exacerbation Chest pain Bipolar/schizophrenia Hypothyroidism Obesity Plan: Acute on chronic hypoxic/hypercapnic respiratory failure secondary to COPDon home oxygen 3 L-with exacerbation: BiPAP ordered, continue with scheduled nebs, IV steroids, ICS. Pulmonology consulted repeat ABG with morning labs. Chest pain: Trend troponins, monitor on telemetry, aspirin, statin will hold beta-júnior given current COPD exacerbation with respiratory failure. Cardiology consult in place. Bipolar/schizophrenia: Obtain continue home medication Hypothyroidism: Obtain continue home medication Obesity: We will need to address lifestyle changes, likely contributing to respiratory failure. DVT PPX: Lovenox Code status: Full Discharge Plan: Home Plan to discharge in: 48 Hours - Advance Directives Does patient have a Living Will: No Does patient have a Durable POA for Healthcare: No - Code Status/Comfort Care Code Status Assessed: Yes (Full code) Critical Care: No Time Spent Managing Pts Care (In Minutes): 55
[2021-07-04] MEDS ORDERED: NA CHLORIDE 0.9% 250 ML ONE (18:39)
[2021-07-04] MEDS ORDERED: AZITHROMYCIN 500 MG INJ IVPB ONE (18:39)
[2021-07-04 18:44] LABS: Arterial Blood Carboxyhemoglob 1.2 % (0-1.5); Blood Gas Oxyhemoglobin 90.1 % (94-97); Blood O2 Saturation 92.6 % (92-98.5)
[2021-07-04] MEDS ORDERED: METHYLPREDNISOLONE 125 MG INJ ONE (18:56)
[2021-07-04] MEDS ORDERED: ALBUTEROL 2.5 MG/3 ML NEB SOL ONE (18:57)
[2021-07-04] MEDS ORDERED: IPRATROPIUM BROM 0.5MG/2.5ML ONE (18:57)
[2021-07-04] MEDS: ALBUTEROL 2.5 MG/3 ML NEB SOL NEB SCH (20:26)
[2021-07-04] MEDS: IPRATROPIUM BROM 0.5MG/2.5ML NEB SCH (20:26)
[2021-07-04] MEDS ORDERED: ONDANSETRON 4 MG/2 ML VIAL IV PRN (20:26)
[2021-07-04 20:43] VITALS: BMI 51.2
[2021-07-04] MEDS: DULERA 200/5 (MOMETASONE/FORMOTEROL) INHALER IH SCH (21:00)
[2021-07-04] MEDS: ATORVASTATIN 40 MG TAB PO SCH (22:23)
[2021-07-04 22:36] LABS: Urine Appearance CLEAR (Clear); Urine Bilirubin NEGATIVE (Negative); Urine Blood NEGATIVE (Negative); Urine Color YELLOW (Yellow); Urine Glucose NEGATIVE (Negative); Urine Protein NEGATIVE (Negative); Urine Urobilinogen 0.2 mg/dL (0.2-1.0)
[2021-07-04 22:43] LABS: Urine Microscopic Reflex ORDER UMIC
[2021-07-04 22:58] LABS: Urine Amorphous Sediment 1+ /HPF (NONE SEEN); Urine Bacteria >50 /HPF (<20); Urine Mucus 2+ /HPF (NONE SEEN); Urine RBC <5 /HPF (NONE SEEN)
[2021-07-05] MEDS: METHYLPREDNISOLONE 40 MG INJ IV SCH ×2 (00:24→09:13)
[2021-07-05] MEDS: IPRATROPIUM BROM 0.5MG/2.5ML NEB SCH ×4 (01:40→20:15)
[2021-07-05] MEDS: ALBUTEROL 2.5 MG/3 ML NEB SOL NEB SCH ×4 (01:40→20:15)
[2021-07-05] MEDS: LEVOTHYROXINE SOD 0.025 MG TAB PO SCH (05:34)
[2021-07-05 05:47] LABS: Arterial Blood Carboxyhemoglob 1.1 % (0-1.5); Blood Gas Oxyhemoglobin 93.8 % (94-97); Blood O2 Saturation 96.2 % (92-98.5)
--- NOTE | 2021-07-05 06:04 | P.PN ---
Date of Service: 07/05/21 Subjective: Feeling sick still with shortness of breath, still with some slight chest pressure/pain states chest pain is different than her chronic pains ROS: 10point ROS otherwise negative Physical Exam Gen: morbidly obese, fatigued appearing HEENT: Normal conjunctiva, sclera anicteric Cardiovascular: Regular rate and rhythm, no murmur, no edema Pulmonary: Diminished bilaterally at bases, slight wheeze. Mildly labored respirations on home 3 L nasal cannula Abdomen: Soft, nontender, nondistended Neuro: Normal affect, normal mood, moves all extremities equally Problem List: Acute on chronic hypoxic/hypercapnia/ respiratory failure secondary to COPDon home oxygen 3 L-with exacerbation Acute on chronic COPD exacerbation Acute cystitis Chest pain Bipolar/schizophrenia Hypothyroidism Obesity Hypercapnia improved with use of BiPAP overnight Patient with chronic COPD, here with acute exacerbation. Continue steroids, nebulizers, pulmonology consulted Troponin remained negative x3, cardiology consulted for this new/change in her chest pain UA concerning for UTI, patient reports she has been urinating slightly more than usual, otherwise no other urinary changes/complaints. Empirically start Levaquin on 07/05 Continue patient's chronic home medications for her bipolar/schizophrenia, hypothyroidism VTE: Lovenox Code: Full Dispo: Anticipate discharge home in 1-2 days Time Spent Managing Pts Care (In Minutes): 35
[2021-07-05 06:15] LABS: Absolute Lymphocytes (CBC) 0.5 K/uL (0.7-4.9); Basophils % 0.2 % (0-1.3); Lymphocytes % 11.2 % (15.3-44.8); MPV 8.9 fL (7.6-11.3); RBC Red Blood Cell Count 4.12 M/uL (3.86-4.86)
[2021-07-05 06:41] LABS: ALT/SGPT 23 U/L (12-78); AST/SGOT 20 U/L (15-37); Albumin 3.3 g/dL (3.4-5.0); Alkaline Phosphatase 58 U/L (45-117); BUN Blood Urea Nitrogen 16 mg/dL (7-18); Bicarbonate 33 mmol/L (21-32); Bilirubin Total 0.2 mg/dL (0.2-1.0); Glucose Level 175 mg/dL (74-106); HDL Cholesterol 44 mg/dL (40-60); LDL Cholesterol, Calculated 118 (<130); Potassium 4.5 mmol/L (3.5-5.1); Sodium Level 144 mmol/L (136-145); Troponin I < 0.02 ng/mL (0.0-0.045)
[2021-07-05] MEDS: BUSPIRONE HCL 15 MG TABLET PO SCH ×3 (09:00→20:09)
[2021-07-05] MEDS: ROPINIROLE HCL 0.25 MG TAB PO SCH ×3 (09:00→20:10)
[2021-07-05] MEDS: DULERA 200/5 (MOMETASONE/FORMOTEROL) INHALER IH SCH ×2 (09:00→20:10)
[2021-07-05] MEDS ORDERED: levoFLOXacin 750 MG TAB PO SCH (09:00)
[2021-07-05] MEDS: ENOXAPARIN 40 MG/0.4 ML SQ SCH (09:13)
[2021-07-05] MEDS: ASPIRIN EC 81 MG TAB PO SCH (09:14)
[2021-07-05] MEDS: DULOXETINE 30 MG CAP PO SCH (09:14)
[2021-07-05] MEDS: MONTELUKAST 10 MG TAB PO SCH (09:14)
[2021-07-05] MEDS: ARIPiprazole 5 MG TAB PO SCH (09:14)
--- NOTE | 2021-07-05 11:02 | P.CNS ---
Date of Consult: 07/05/21 Reason for Consult: Respiratory failure chest discomfort Primary Care Provider: ezequiel Menchaca Chief Complaint: Chest pain, respiratory failure History of Present Illness: Patient is 70 years of age admitted with worsening dyspnea hypoxic hypercarbic respiratory failure in addition to chest discomfort had a cardiac catheterization done in 2019 still apprehensive complaining of chest discomfort takes only Atrovent at home Allergies No Known Allergies Allergy (Verified 09/02/20 13:00) Home Medications: Aripiprazole [Abilify] 20 mg PO DAILY 09/30/18 Buspirone HCl 15 mg PO BID 09/30/18 Duloxetine HCl 60 mg PO DAILY 09/30/18 Levothyroxine [Synthroid*] 0.025 mg PO [id number] 09/30/18 Montelukast [Singulair*] 10 mg PO DAILY 09/30/18 Ropinirole HCl [Requip*] 0.25 mg PO TID 09/30/18 Trazodone HCl 100 mg PO BEDTIME 09/30/18 Ipratropium Neb [Atrovent*] 0.5 mg NEB [id number] #120 amp 02/18/21 - Past Medical/Surgical History Diabetic: No -: Bipolar disorder -: Schizophrenia -: COPD, oxygen-dependent -: Former tobacco use -: Obesity -: hepatitis b -: anxiety -: L breast lumpectomy -: mack -: hysterectomy -: tubal ligation -: appendectomy -: removal of lump rt side Psychosocial/ Personal History: Patient is a . She lives by herself. She has 1 child. - Family History Father Medical History: Heart disease Notes: dementia Mother Medical History: Cancer Notes: bladder - Social History Smoking Status: Current every day smoker Alcohol use: Yes CD- Drugs: No Caffeine use: Yes Place of Residence: Home Review of Systems General: Weakness Respiratory: Shortness of Breath Cardiovascular: Chest Pain Physical Examination Temp Pulse Resp BP Pulse Ox 97.3 F 93 H 28 H 124/60 95 07/05/21 08:00 07/05/21 08:00 07/05/21 08:00 07/05/21 08:00 07/05/21 08:00 General: Alert, Oriented x3, Mild distress Respiratory: Diminished Cardiovascular: No edema, Normal S1 S2 Gastrointestinal: Normal bowel sounds, Soft and benign Laboratory Data (last 24 hrs) 10/02/21 16:08: PT 11.9, INR 1.03 07/04/21 16:08: WBC 4.50, Hgb 13.7, Hct 41.8, Plt Count 137 L 07/04/21 16:08: Sodium 143, Potassium 3.9, BUN 13, Creatinine 0.65, Glucose 96, Magnesium 1.9, Total Bilirubin 0.2, AST 14 L, ALT 27, Alkaline Phosphatase 70 - Problems (1) Acute respiratory failure with hypoxia Current Visit: No Status: Acute Plan: Patient is 70 years of age admitted with chest discomfort still has this discomfort she had a cardiac cath done 2 years ago troponins are negative hypoxic hypercarbic she only takes Atrovent at home chest x-ray is clear labs reviewed patient is on home oxygen will need triple therapy possibly a noninvasive ventilator DC antibiotics for now is to p.o. prednisone ambulate possible discharge in the morning continue with Dulera low-dose prednisone at home and follow-up with me in 2 weeks
[2021-07-05] MEDS: ACETAMINOPHEN 500 MG TAB PO PRN (16:29)
[2021-07-05] MEDS: ATORVASTATIN 40 MG TAB PO SCH (20:08)
[2021-07-05] MEDS: predniSONE 20 MG TAB PO SCH (20:08)
[2021-07-05] MEDS: acetaZOLAMIDE 250 MG TAB PO SCH (20:09)
[2021-07-05] MEDS ORDERED: TRAZODONE 50 MG TABLET PO SCH (21:00)
[2021-07-06] MEDS: IPRATROPIUM BROM 0.5MG/2.5ML NEB SCH ×2 (02:05→08:00)
[2021-07-06] MEDS: ALBUTEROL 2.5 MG/3 ML NEB SOL NEB SCH ×2 (02:05→08:00)
[2021-07-06] MEDS: ACETAMINOPHEN 500 MG TAB PO PRN (05:07)
[2021-07-06] MEDS: LEVOTHYROXINE SOD 0.025 MG TAB PO SCH (05:07)
[2021-07-06 05:50] LABS: Absolute Lymphocytes (CBC) 0.8 K/uL (0.7-4.9); Basophils % 0.4 % (0-1.3); Hematocrit 39.2 % (36.0-45.0); Lymphocytes % 9.6 % (15.3-44.8); MPV 8.5 fL (7.6-11.3); RBC Red Blood Cell Count 4.06 M/uL (3.86-4.86)
--- NOTE | 2021-07-06 06:07 | P.PN ---
Date of Service: 07/06/21 Subjective: ROS: 10point ROS otherwise negative Physical Exam Gen: morbidly obese, fatigued appearing HEENT: Normal conjunctiva, sclera anicteric Cardiovascular: Regular rate and rhythm, no murmur, no edema Pulmonary: Diminished bilaterally at bases, slight wheeze. Mildly labored respirations on home 3 L nasal cannula Abdomen: Soft, nontender, nondistended Neuro: Normal affect, normal mood, moves all extremities equally Problem List: Acute on chronic hypoxic/hypercapnia/ respiratory failure secondary to COPDon home oxygen 3 L-with exacerbation Acute on chronic COPD exacerbation Acute cystitis Chest pain Bipolar/schizophrenia Hypothyroidism Obesity Hypercapnia improved with use of BiPAP overnight Patient with chronic COPD, here with acute exacerbation. Continue steroids, nebulizers, pulmonology consulted Troponin remained negative x3, cardiology consulted for this new/change in her chest pain UA concerning for UTI, patient reports she has been urinating slightly more than usual, otherwise no other urinary changes/complaints. Empirically start Levaquin on 07/05 Continue patient's chronic home medications for her bipolar/schizophrenia, hypothyroidism VTE: Lovenox Code: Full Dispo: Anticipate discharge home in 1-2 days Time Spent Managing Pts Care (In Minutes): 35
[2021-07-06 08:34] LABS: Albumin 3.3 g/dL (3.4-5.0); Bilirubin Total 0.3 mg/dL (0.2-1.0); Magnesium 2.1 mg/dL (1.8-2.4); Potassium 4.3 mmol/L (3.5-5.1)
[2021-07-06] MEDS: DULERA 200/5 (MOMETASONE/FORMOTEROL) INHALER IH SCH (08:58)
[2021-07-06] MEDS: BUSPIRONE HCL 15 MG TABLET PO SCH (08:58)
[2021-07-06] MEDS: predniSONE 20 MG TAB PO SCH (08:58)
[2021-07-06] MEDS: ENOXAPARIN 40 MG/0.4 ML SQ SCH (08:58)
[2021-07-06] MEDS: ASPIRIN EC 81 MG TAB PO SCH (08:59)
[2021-07-06] MEDS: DULOXETINE 30 MG CAP PO SCH (08:59)
[2021-07-06] MEDS: acetaZOLAMIDE 250 MG TAB PO SCH (08:59)
[2021-07-06] MEDS: ROPINIROLE HCL 0.25 MG TAB PO SCH (08:59)
[2021-07-06] MEDS: ARIPiprazole 5 MG TAB PO SCH (09:00)
[2021-07-06] MEDS ORDERED: levoFLOXacin 750 MG TAB PO SCH (09:00)
[2021-07-06] MEDS: MONTELUKAST 10 MG TAB PO SCH (09:00)
[2021-07-06 09:24] VITALS: O2SAT 95
[2021-07-06 10:37] VITALS: BP 120/58; TEMP 97.5
[2021-07-06] MEDS ORDERED: INFLUENZA VACCINE (for 6+ mo) 0.5 ML DOSE IMVAC ONE (12:00)
--- NOTE | 2021-07-06 14:40 | ECHO ---
HEIGHT: 5 ft 1 in WEIGHT: 271 lb 4.8 oz DATE OF STUDY: 07/06/[address]: Boni Greir MD 2-DIMENSIONAL: YES M.MODE: YES DOPPLER: YES COLOR FLOW: YES TDS: YES PORTABLE: NO DEFINITY: NO BUBBLE STUDY: NO DIAGNOSIS: CHEST PAIN CARDIAC HISTORY: CATHERIZATION: SURGERY: PROSTHETIC VALVE: PACEMAKER: MEASUREMENTS (cm) DIASTOLIC (NORMALS) SYSTOLIC (NORMALS) IVSd 0.8 (0.6-1.2) LA Diam 3.9 (1.9-4.0) LVEF 66% LVIDd 4.9 (3.5-5.7) LVIDs 3.1 (2.0-3.5) %FS 36% LVPWd 1.0 (0.6-1.2) Ao Diam 2.8 (2.0-3.7) 2 DIMENSIONAL ASSESSMENT: RIGHT ATRIUM: NORMAL LEFT ATRIUM: NORMAL RIGHT VENTRICLE: NORMAL LEFT VENTRICLE: NORMAL TRICUSPID VALVE: NORMAL MITRAL VALVE: NORMAL PULMONIC VALVE: NORMAL AORTIC VALVE: NORMAL PERICARDIAL EFFUSION: NONE AORTIC ROOT: NORMAL LEFT VENTRICULAR WALL MOTION: NORMAL. DOPPLER/COLOR FLOW: NORMAL. COMMENTS: NORMAL LEFT VENTRICULAR EJECTION FRACTION 60-65%. NORMAL WALL MOTION. TECHNOLOGIST: ANGELO HARTMANN
--- NOTE | 2021-07-06 17:47 | P.DS ---
Admission Date: 07/04/21 Discharge Date: 07/06/21 Primary Care Provider: ezequiel Menchaca Disposition: ROUTINE DISCHARGE Discharge Condition: GOOD Reason for Admission: Chest pain, respiratory failure Consultations: PulmonologyDr. Tariq Cardiology Dr. Grier Procedures: CXR (07/04): IMPRESSION: Mild basilar opacities favored to represent atelectasis though pneumonia difficult to exclude radiographically. Echocardiogram (07/06): normal LV EF: 60-65%. normal wall motion Problem List: Acute on chronic hypoxic/hypercapnia/ respiratory failure secondary to COPDon home oxygen 3 L-with exacerbation Acute on chronic COPD exacerbation Acute cystitis Chest pain Bipolar/schizophrenia Hypothyroidism Obesity Brief History of Present Illness: 70-year-old female with history of COPD on home oxygen to 3 L, bipolar, schizophrenia, hypothyroidism, former tobacco abuse, obesity presents emerged part for chest pain. Patient ports chest pain began around 10 AM this morning described as pressure-like radiating to the back associated with some shortness of breath. Patient declines similar symptoms in the past has never had a formal cardiac evaluation including stress test or cardiac cath. Patient was evaluated in the emergency department labs are significant for CO2 36, after seeing CO2 and patient on oxygen ABG was added by nm which demonstrated pH 7.27 PCO2 81.2 O2 73.5. Patient with acute on chronic hypercapnic/hypoxic respiratory failure related to COPD with exacerbation. Patient also with chest pain, ED provider just admit for further evaluation and management. Hospital Course: Patient was treated for acute on chronic COPD exacerbation with steroids and nebulizers. Her UA was concerning for UTI and patient reported increased urinary frequency over the last few days. She was also empirically treated for acute cystitis. She had improvement of her symptoms and was feeling better. Pulmonology was consulted and agreed with the plan. She developed some chest discomfort, troponins were negative, cardiology was consulted, an echocardiogram was obtained and normal. Patient was deemed stable for discharge. Discharged with prednisone and inhalers for her COPD exacerbation. Discharged with Levaquin for empiric coverage of her UTI. Follow-up with PCP in 3-5 days Follow-up with pulmonology in 1-2 weeks Follow-up with cardiology in the next few weeks In the evening before discharge, nursing staff reported seeing a bedbug in the patient's bed. Patient was informed. Vital Signs/Physical Exam: Temp Pulse Resp BP Pulse Ox 97.5 F 85 19 120/58 L 98 07/06/21 08:00 07/06/21 08:00 07/06/21 08:00 07/06/21 08:00 07/06/21 08:00 General: Alert, In no apparent distress, Oriented x3 HEENT: Sclerae nonicteric Respiratory: Diminished (At bases bilaterally), Expiratory wheezes (Mild) Cardiovascular: Regular rate/rhythm Gastrointestinal: Soft and benign, Non-distended, No tenderness Musculoskeletal: No tenderness Integumentary: No rashes, No significant lesion Neurological: Normal speech, Normal affect Laboratory Data at Discharge: WBC 8.60 K/uL (4.3-10.9) D 07/06/21 05:25 Hgb 12.9 g/dL (12.0-15.0) 07/06/21 05:25 Hct 39.2 % (36.0-45.0) 07/06/21 05:25 Plt Count 135 K/uL (152-406) L 07/06/21 05:25 PT 11.9 SECONDS (9.5-12.5) 07/04/21 16:08 INR 1.03 07/04/21 16:08 Sodium 142 mmol/L (136-145) 07/06/21 07:18 Potassium 4.3 mmol/L (3.5-5.1) 07/06/21 07:18 BUN 16 mg/dL (7-18) 07/06/21 07:18 Creatinine 0.75 mg/dL (0.55-1.3) 07/06/21 07:18 Glucose 131 mg/dL (74-106) H 07/06/21 07:18 Magnesium 2.1 mg/dL (1.8-2.4) 07/06/21 07:18 Total Bilirubin 0.3 mg/dL (0.2-1.0) 07/06/21 07:18 AST 18 U/L (15-37) 07/06/21 07:18 ALT 22 U/L (12-78) 07/06/21 07:18 Alkaline Phosphatase 52 U/L (45-117) 07/06/21 07:18 Troponin I < 0.02 ng/mL (0.0-0.045) 07/05/21 05:25 Triglycerides 66 mg/dL (<150) 07/05/21 05:25 Cholesterol 175 mg/dL (<200) 07/05/21 05:25 HDL Cholesterol 44 mg/dL (40-60) 07/05/21 05:25 Cholesterol/HDL Ratio 3.98 07/05/21 05:25 Home Medications: Aripiprazole [Abilify] 20 mg PO DAILY 09/30/18 Duloxetine HCl 60 mg PO DAILY 09/30/18 Levothyroxine [Synthroid*] 0.025 mg PO [id number] 09/30/18 Montelukast [Singulair*] 10 mg PO DAILY 09/30/18 Ropinirole HCl [Requip*] 0.25 mg PO TID 09/30/18 Trazodone HCl 100 mg PO BEDTIME 09/30/18 Ipratropium Neb [Atrovent*] 0.5 mg NEB [id number] #120 amp 02/18/21 Albuterol Inhaler [Ventolin Inhaler*] 2 puff IH Q6H PRN 30 Days #1 hfa.aer.ad 07/06/21 Buspirone HCl 15 mg PO BID 15 Days #30 tablet 07/06/21 Mometasone/Formoterol [Dulera 200 Mcg/5 Mcg Inhaler] 2 puff IH BID 30 Days #1 inhaler 07/06/21 levoFLOXacin [Levaquin*] 750 mg PO DAILY 7 Days #7 tab 07/06/21 predniSONE [Prednisone*] 20 mg PO BID 5 Days #10 tab 07/06/21 New Medications: Buspirone HCl 15 mg PO BID 15 Days #30 tablet Mometasone/Formoterol [Dulera 200 Mcg/5 Mcg Inhaler] 2 puff IH BID 30 Days #1 inhaler levoFLOXacin [Levaquin*] 750 mg PO DAILY 7 Days #7 tab predniSONE [Prednisone*] 20 mg PO BID 5 Days #10 tab Albuterol Inhaler [Ventolin Inhaler*] 2 puff IH Q6H PRN 30 Days #1 hfa.aer.ad PRN Reason: Shortness Of Breath Physician Discharge Instructions: You were found to have acute on chronic COPD exacerbation. You improved with steroids and breathing treatments. You were evaluated by Dr. Eisenberg, pulmon ology, who recommended use of your inhalers. You were deemed stable and well to be discharged home. Discharged with prescriptions for steroids, inhalers, and an antibiotic. You urine was concerning for a UTI, and you did report some increased urinary frequency. Your urine culture was didn't grow a specific bacteria. You are discharged to complete 7 days of antibiotic. Your chest discomfort improved, your cardiac troponin (heart enzyme) and ekg were all normal. This was likely from your COPD / breathing. Highly unlikely to be related to your heart. Recommend follow up with your [employer] for further workup as an outpatient. Follow up with PCP in 3-5 days Follow up with Dr. Eisenberg in 1-2 weeks Follow up with your [employer] in the next few weeks. Diet: AHA Activity: Ad karey Followup: Addison Eisenberg MD [ACTIVE - CAN ADMIT] - NONE,NONE [Primary Care Provider] - Time spent managing pt's care (in minutes): 45
--- NOTE | 2021-07-08 00:02 | CON ---
Date of Consultation: 07/05/[address] Garcia on 07/04/2021. Reason For Consultation: Chest pain. History Of Present Illness: Ms. Garcia is 70, has a history of obesity, schizophrenia, COPD, bipolar d isorder and anxiety, came in with atypical chest pain sharp, stabbing, left-sided. No nausea, vomiti ng, diaphoresis, PND, orthopnea, pedal edema, palpitations, or syncope. Chest x-ray showed possible pneumonia. She was hypercapnic with a pCO2 of 54. Echocardiogram was normal, pain-free now. Past Medical History: As stated above. Allergies: SHE IS ALLERGIC TO PAPER TAPE. Review of Systems: Negative. Social History: Negative. Family History: Negative. Medications: At home include Abilify, buspirone, inhalers, thyroid, and Requip. Physical Examination: General: Obese. Vital Signs: Stable, afebrile. HEENT: Negative. Neck: Supple. No bruit. Chest: Clear. Cardiac: Revealed a regular rhythm and rate. No murmurs, gallops, or rubs. Abdomen: Benign, but obese. Extremities: Revealed no clubbing, cyanosis. She had what seemed like chronic venous insufficiency changes. Diagnostic Data: Showed a pO2 of 75, pCO2 of 54, pH of 7.38, normal troponin. She had a heart lorin terization in 2019 that was normal. Impression And Plan: Atypical chest pain. Normal heart catheterization 2 years ago. She is on inha lers, aspirin, Lipitor, Lovenox, thyroid, and steroid. She needs to resume her psychiatric medicine, but I am comfortable with her going home with normal catheterization 2 years ago with normal echo, n ow normal troponin. I do not think her heart pain is cardiac. Case was discussed with Dr. Garcia. [id number]/VIDHI Voice ID: [id number] Report ID: [id number]
== END 2021-07-06 12:25 | disposition home or self-care (01) | DRG 190 ==
LOC: ER 16:01 → ERHOLD 18:22 → 2ND 19:50
PROVIDERS: ADMIT Hospitalist; ATTEND Hospitalist
PROC: 5A09357 Assistance with Respiratory Ventilation, Less than 24 Consecutive Hours, Continuous Positive Airway Pressure (ICD-10-PCS; principal; 2021-07-04)
DX: J44.1 Chronic obstructive pulmonary disease with (acute) exacerbation (principal); J96.22 Acute and chronic respiratory failure with hypercapnia; J96.21 Acute and chronic respiratory failure with hypoxia; N30.00 Acute cystitis without hematuria; Z68.43 Body mass index [BMI] 50.0-59.9, adult; Z99.81 Dependence on supplemental oxygen; R07.9 Chest pain, unspecified; F31.9 Bipolar disorder, unspecified; F20.9 Schizophrenia, unspecified; E03.9 Hypothyroidism, unspecified; E66.9 Obesity, unspecified; Z23 Encounter for immunization; Z20.822 Contact with and (suspected) exposure to COVID-19; Z87.891 Personal history of nicotine dependence
CPT/HCPCS: 36415; 71045; 80048; 80053; 80061; 80076; 81003; 81015; 82805; 83735; 83880; 84439; 84443; 84484; 85025; 85610; 87086; 87088; 90471; 93306; 94010; 94640; 94660; 96374; 96375; 99285; J0456; J1650; J2405; J2920; J2930; J7050; J7512; J7606; Q2035; U0003

== ENCOUNTER 2022-09-24 18:56 | Observation (INO) | payer OTHER ==
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
[2022-09-24] MEDS ORDERED: NITROGLYCERIN 0.4 MG/TAB SL ONE (19:16)
[2022-09-24 19:30] LABS: Absolute Lymphocytes (CBC) 1.4 K/uL (0.7-4.9); Hematocrit 40.5 % (36.0-45.0); Lymphocytes % 27.7 % (15.3-44.8); MCV 89.2 fL (80-100); RBC Red Blood Cell Count 4.54 M/uL (3.86-4.86)
[2022-09-24 19:40] LABS: Albumin 3.5 g/dL (3.4-5.0); Bilirubin Total 0.2 mg/dL (0.2-1.0); Potassium 4.3 mmol/L (3.5-5.1); Protein, Total 7.2 g/dL (6.4-8.2); Troponin High Sensitivity 11.4 pg/mL (<58.9)
[2022-09-24] MEDS ORDERED: MORPHINE 4 MG/ML SYR ONE (20:01)
--- NOTE | 2022-09-24 20:26 | RAD REPORT ---
EXAM DESCRIPTION: RAD - Chest Single View - 09/24/2022 8:03 pm CLINICAL HISTORY: CHEST PAIN COMPARISON: Portable 07/04/2021 TECHNIQUE: AP portable chest image was obtained 09/24/2022 8:03 pm . FINDINGS: Lung volumes are low. Large body habitus and under penetrated film technique further limit the examination. No focal mass or consolidations seen. Lung markings are similar to comparison. No significant failure or volume overload suspected. Heart and vasculature are normal. No measurable pleural effusion and no pneumothorax. No acute bony abnormality seen. No acute aortic findings suspected. IMPRESSION: Limited portable study without acute cardiopulmonary finding.
--- NOTE | 2022-09-24 20:33 | RAD REPORT ---
EXAM DESCRIPTION: US - Extremity Venous Uni Ltd - 09/24/2022 8:22 pm CLINICAL HISTORY: PAIN COMPARISON: None. TECHNIQUE: Real-time sonographic evaluation of the right lower extremity deep venous systems was per formed. FINDINGS: Normal compressibility, flow augmentation, phasic flow and spontaneous flow are identified in the right lower extremity common femoral, superficial femoral, popliteal and posterior tibial vei ns. No intraluminal filling defects seen. IMPRESSION: No DVT in the right lower extremity.
--- NOTE | 2022-09-24 20:42 | EDPHYS ---
Physician Documentation [facility] Name: Cassia Garcia Age: 71 yrs Sex: Female : 1950 Arrival Date: 09/24/2022 Time: 19:00 Bed 5 Private MD: ED Physician Javy Odell HPI: 09/24 19:21 This 71 yrs old Female presents to ER via EMS with complaints of Chest Pain. rt 19:21 The patient or guardian reports chest pain that is located primarily in the substernal rt area. Onset: 9 hour(s) ago. The pain radiates to the left arm, Associated signs and symptoms: Pertinent positives: shortness of breath, Pertinent negatives: diaphoresis, dizziness. The chest pain is described as aching. Modifying factors: The symptoms are alleviated by nothing. the symptoms are aggravated by nothing. Patient presents to the ED with chest pain starting and. It was initially intermittent, over an hour, became constant. Radiates to the left arm, jaw. Denies other acute complaints at this time other than shortness of breath. Symptoms are moderate severity, no other aggravating or alleviating factors.. Historical: - Allergies: 19:07 paper tape; vg1 - PMHx: 19:07 Anxiety; Bipolar disorder; COPD; Schizophrenia; vg1 ROS: 19:21 Constitutional: Negative for fever, chills, and weight loss, Eyes: Negative for injury, rt pain, redness, and discharge, ENT: Negative for injury, pain, and discharge, Neck: Negative for injury, pain, and swelling, Abdomen/GI: Negative for abdominal pain, nausea, vomiting, diarrhea, and constipation, Back: Negative for injury and pain, MS/Extremity: Negative for injury and deformity, Skin: Negative for injury, rash, and discoloration, Neuro: Negative for headache, weakness, numbness, tingling, and seizure, Psych: Negative for depression, anxiety, suicide ideation, homicidal ideation, and hallucinations. 19:21 Cardiovascular: Positive for chest pain, Negative for edema. 19:21 Respiratory: Positive for shortness of breath, Negative for cough. Exam: 19:21 Constitutional: This is a well developed, well nourished patient who is awake, alert, rt and in no acute distress. Head/Face: Normocephalic, atraumatic. Eyes: Pupils equal round and reactive to light, extra-ocular motions intact. Lids and lashes normal. Conjunctiva and sclera are non-icteric and not injected. Cornea within normal limits. Periorbital areas with no swelling, redness, or edema. ENT: Nares patent. No nasal discharge, no septal abnormalities noted. Tympanic membranes are normal and external auditory canals are clear. Oropharynx with no redness, swelling, or masses, exudates, or evidence of obstruction, uvula midline. Mucous membranes moist. Neck: Trachea midline, no thyromegaly or masses palpated, and no cervical lymphadenopathy. Supple, full range of motion without nuchal rigidity, or vertebral point tenderness. No Meningismus. Chest/axilla: Normal chest wall appearance and motion. Nontender with no deformity. No lesions are appreciated. Cardiovascular: Regular rate and rhythm with a normal S1 and S2. No gallops, murmurs, or rubs. Normal PMI, no JVD. No pulse deficits. Respiratory: Lungs have equal breath sounds bilaterally, clear to auscultation and percussion. No rales, rhonchi or wheezes noted. No increased work of breathing, no retractions or nasal flaring. Abdomen/GI: Soft, non-tender, with normal bowel sounds. No distension or tympany. No guarding or rebound. No evidence of tenderness throughout. Skin: Warm, dry with normal turgor. Normal color with no rashes, no lesions, and no evidence of cellulitis. MS/ Extremity: Pulses equal, no cyanosis. Neurovascular intact. Full, normal range of motion. Neuro: Awake and alert, GCS 15, oriented to person, place, time, and situation. Cranial nerves II-XII grossly intact. Motor strength 5/5 in all extremities. Sensory grossly intact. Cerebellar exam normal. Normal gait. Psych: Awake, alert, with orientation to person, place and time. Behavior, mood, and affect are within normal limits. 19:21 ECG was reviewed by the Attending Physician. Vital Signs: 19:07 BP 133 / 73; Pulse 92; Resp 22; Temp 97.3; Pulse Ox 97% on 3 lpm NC; Weight 136.08 kg; vg1 Pain 4/10; 20:04 BP 130 / 71; Pulse 91; Resp 24; Pulse Ox 97% on 3 lpm NC; ll3 21:25 BP 107 / 58; Pulse 96; Resp 16; Pulse Ox 96% on 3 lpm NC; ll3 MDM: 19:04 Patient medically screened. rt 20:41 Differential diagnosis: acute myocardial infarction, acute pericarditis, coronary rt artery disease chest wall pain, congestive heart failure pneumonia, pneumothorax. HEART Score: History: Moderately Suspicious (1), ECG: Normal (0), Age: > or = 65 years (2), Risk Factors: > or = 3 Risk factors for atherosclerotic disease (2), Troponin: < or = 1 x Normal Limit (0), Total Score = 4. Data reviewed: vital signs, nurses notes, old medical records, lab test result(s), EKG, radiologic studies. ED course: Into the ED with chest pain, rating to the left arm, jaw. She has not had a previous cardiac work-up per her report. The patient also has a erythema to the right lower extremity, negative for DVT, will treat for cellulitis. She is not septic by labs, vital signs. The patient has a negative cardiac work-up initially. Will admit for further restratification.. 09/24 19:09 Order name: CBC with Diff; Complete Time: 19:43 rt 09/24 19:09 Order name: CMP; Complete Time: 19:43 rt 09/24 19:09 Order name: Troponin High Sensitivity; Complete Time: 19:43 rt 09/24 19:09 Order name: BNP; Complete Time: 19:43 rt 09/24 20:44 Order name: SARS RAPID; Complete Time: 21:22 ll3 09/24 21:33 Order name: DD; Complete Time: 22:40 la1 09/24 19:09 Order name: Chest Single View XRAY; Complete Time: 20:34 rt 09/24 19:09 Order name: Extremity Venous Uni Ltd US; Complete Time: 20:34 rt 12 19:13 Order name: EKG - Nurse/Tech; Complete Time: 19:13 ld1 09/24 21:33 Order name: Blood Culture Adult (2) la1 09/24 21:33 Order name: Lactate w/ 2H reflex if indic.; Complete Time: 22:40 la1 EC:21 Rate is 94 beats/min. Rhythm is regular, Normal Sinus Rhythm with No ectopy. QRS [place] rt is Normal. NV interval is normal. QRS interval is normal. QT interval is normal. No Q waves. T waves are Normal. No ST changes noted. Administered Medications: 19:17 Drug: Nitroglycerin 0.4 mg Route: Sublingual; ll3 20:02 Drug: morphine 4 mg Route: IVP; Infused Over: 4 mins; Site: left forearm; ll3 20:45 Drug: Rocephin - (cefTRIAXone) 2 grams Route: IVPB; Infused Over: 30 mins; Site: left ll3 forearm; 22:03 Follow up: Response: No adverse reaction; IV Status: Completed infusion; IV Intake: ll3 100ml Disposition Summary: 09/24/22 20:41 Hospitalization Ordered Hospitalization Status: Observation rt Provider: Shad Griffiths rt Location: Telemetry/MedSurg (observation) rt Condition: Stable rt Problem: new rt Symptoms: are resolved rt Bed/Room Type: Standard rt Room Assignment: 211(09/24/22 22:23) cg Diagnosis - Chest pain, unspecified rt - Cellulitis of right lower limb rt Forms: - Medication Reconciliation Form rt - SBAR form rt Signatures: Dispatcher [employer] EDJuaquin Kern, GENOVEVA-C LEARNING SERVICES COORDINATOR-Cla1 Purnima Gallegos RN RN cg Alicja Gallegos RN RN vg1 Jena Meehan RN RN lee1 Cat Morataya RN RN ll3 Javy Odell MD MD rt Corrections: (The following items were deleted from the chart) : 20:41 rt cg
--- NOTE | 2022-09-24 20:42 | ER ---
Nurse's Notes [facility] Name: Cassia Garcia Age: 71 yrs Sex: Female : 1950 Arrival Date: 09/24/2022 Time: 19:00 Bed 5 Private MD: Diagnosis: Chest pain, unspecified;Cellulitis of right lower limb Presentation: 09/24 19:04 Chief complaint: EMS states: CP began this morning around 1030 that radiates to left vg1 side of jaw and left arm; pt was given 0.4 mg of Nitro SL and 50 mcg of Fentanyl; before medication pt rated pain 10/10 after medication pt rated 4/10. Risk Assessment: Do you want to hurt yourself or someone else? Patient reports no desire to harm self or others. Onset of symptoms was September 24, 2022 at 10:30. 19:04 Method Of Arrival: EMS: [facility] vg1 19:04 Acuity: SAPPHIRE 2 vg1 22:36 Coronavirus screen: unknown. Ebola Screen: Patient negative for fever greater than or tw5 equal to 101.5 degrees Fahrenheit, and additional compatible Ebola Virus Disease symptoms Patient denies exposure to infectious person. Patient denies travel to an Ebola-affected area in the 21 days before illness onset. Initial Sepsis Screen: Does the patient meet any 2 criteria? RR > 20 per min. HR > 90 bpm. Does the patient have a suspected source of infection? No. Patient's initial sepsis screen is negative. Triage Assessment: 19:07 General: Appears uncomfortable, Behavior is calm, cooperative. Pain: Complains of pain vg1 in chest Pain radiates to left side jaw, left arm Pain currently is 4 out of 10 on a pain scale. Pain began this morning around 1030. EENT: No signs and/or symptoms were reported regarding the EENT system. Neuro: Level of Consciousness is awake, alert, obeys commands, Oriented to person, place, time, situation. Cardiovascular: Patient's skin is warm and dry. Respiratory: Reports shortness of breath Airway is patent Respiratory effort is even, unlabored, Respiratory pattern is tachypnea. Historical: - Allergies: 19:07 paper tape; vg1 - PMHx: 19:07 Anxiety; Bipolar disorder; COPD; Schizophrenia; vg1 Screenin:35 [facility] ED Fall Risk Assessment (Adult) Impaired Gait Yes (1 pt). Abuse screen: Denies tw5 threats or abuse. Denies injuries from another. Nutritional screening: No deficits noted. Tuberculosis screening: No symptoms or risk factors identified. Assessment: 19:50 Reassessment: pt states she is still having chest pain Dr Odell notified. bb 20:04 Reassessment: States pain is 4/10, medicated as ordered, tolerated well. ll3 Vital Signs: 19:07 BP 133 / 73; Pulse 92; Resp 22; Temp 97.3; Pulse Ox 97% on 3 lpm NC; Weight 136.08 kg; vg1 Pain 4/10; 20:04 BP 130 / 71; Pulse 91; Resp 24; Pulse Ox 97% on 3 lpm NC; ll3 21:25 BP 107 / 58; Pulse 96; Resp 16; Pulse Ox 96% on 3 lpm NC; ll3 ED Course: 19:00 Patient arrived in ED. eb 19:00 Javy Odell MD is Attending Physician. rt 19:06 Beverly Davila is Primary Nurse. tw5 19:07 Triage completed. vg1 19:07 Arm band placed on. vg1 20:05 Chest Single View XRAY In Process Unspecified. EDMS 20:23 Extremity Venous Uni Ltd US In Process Unspecified. EDMS 20:40 Shad Griffiths MD is Hospitalizing Provider. rt 22:36 No provider procedures requiring assistance completed. Patient admitted, IV remains in tw5 place. Oxygen administration via nasal cannula \T\ 3L/min. Administered Medications: 19:17 Drug: Nitroglycerin 0.4 mg Route: Sublingual; ll3 20:02 Drug: morphine 4 mg Route: IVP; Infused Over: 4 mins; Site: left forearm; ll3 20:45 Drug: Rocephin - (cefTRIAXone) 2 grams Route: IVPB; Infused Over: 30 mins; Site: left ll3 forearm; 22:03 Follow up: Response: No adverse reaction; IV Status: Completed infusion; IV Intake: ll3 100ml Intake: 22:03 IV: 100ml; Total: 100ml. ll3 Outcome: 20:41 Decision to Hospitalize by Provider. rt 22:35 Admitted to Med/surg room 211, Report called to Called report to [facility] tw5 22:35 Condition: stable 22:35 Instructed on the need for admit. 22:53 Patient left the ED. tw5 Signatures: Dispatcher [employer] EDQian Pro RN RN Jessica Rader Victoria, RN RN vg1 Beverly Davila tw5 Cat Morataya RN RN ll3 Javy Odell MD MD rt
[2022-09-24] MEDS ORDERED: NA CHLORIDE 0.9% 100 ML IV ONE (20:43)
[2022-09-24] MEDS ORDERED: CEFTRIAXONE 2000 MG/VIAL ONE (20:43)
[2022-09-24 21:18] LABS: SARS-CoV-2 Antigen Rapid Res Negative (Negative)
--- NOTE | 2022-09-24 22:21 | P.HP ---
Certification for Inpatient Patient admitted to: Observation With expected LOS: <2 Midnights Patient will require the following post-hospital care: None Practitioner: I am a practitioner with admitting privileges, knowledge of patient current condition, hospital course, and medical plan of care. Services: Services provided to patient in accordance with Admission requirements found in Title 42 Section 412.3 of the Code of Federal Regulations <Juaquin Martinez Anita Stinson - Last Filed: 09/24/22 22:17> Patient History Date of Service: 09/24/22 Reason for admission: Chest pain, RLE cellulitis History of Present Illness: 71-year-old female with history of COPD on home oxygen, anxiety, BPD, schizoaffective disorder, obesity presents the emergency department for chest pain, shortness of breath. She reports that her symptoms began this morning, worsened after lunchtime. She describes the pain as sharp, aching radiating to left side of neck and left shoulder with associated shortness of breath. She denies diaphoresis, near syncope, nausea or vomiting. She had some mild relief with nitroglycerin given in the emergency department. She denies any previous cardiac work-up including stress test, echocardiogram or heart catheterization. She is also noted to have erythema of the right lower extremity with concern for cellulitis, ultrasound right lower extremity was performed which was negative for DVT. SIRS criteria were present including heart rate greater than 90, respiratory rate greater than 20, blood cultures were obtained, lactate is pending. D-dimer also sent out with consideration for pulmonary embolism. Will admit under observation for ACS rule out, RLE cellulitis. - Past Medical/Surgical History Diabetic: No -: Bipolar disorder -: Schizophrenia -: COPD, oxygen-dependent -: Former tobacco use -: Obesity -: hepatitis b -: anxiety -: L breast lumpectomy -: mack -: hysterectomy -: tubal ligation -: appendectomy -: removal of lump rt side Psychosocial/ Personal History: Patient is a . She lives by herself. She has 1 child. - Family History Father -: Heart disease Notes: dementia Mother -: Cancer Notes: bladder - Social History Alcohol use: Yes CD- Drugs: No Caffeine use: Yes Place of Residence: Home <Juaquin Martinez - Last Filed: 09/24/22 22:17> Date of Service: 09/25/22 <Shad Griffiths Last Filed: 09/25/22 17:02> Allergies No Known Allergies Allergy (Verified 09/02/20 13:00) Home Medications: Aripiprazole [Abilify] 20 mg PO DAILY 09/30/18 Duloxetine HCl 60 mg PO DAILY 09/30/18 Levothyroxine [Synthroid*] 0.025 mg PO [id number] 09/30/18 Montelukast [Singulair*] 10 mg PO DAILY 09/30/18 Ropinirole HCl [Requip*] 0.25 mg PO BEDTIME 09/30/18 Trazodone HCl 100 mg PO BEDTIME 09/30/18 Albuterol Inhaler [Ventolin Inhaler*] 2 puff IH Q6H PRN #1 hfa.aer.ad 07/10/21 Buspirone HCl 15 mg PO BID #60 tablet 07/10/21 Meloxicam 1 tab PO DAILY 09/25/22 Pantoprazole [Protonix Tab*] 1 tab PO DAILY 09/25/22 Review of Systems 10-point ROS is otherwise unremarkable Respiratory: Shortness of Breath Cardiovascular: Chest Pain Integumentary: As per HPI <Juaquin Martinez - Last Filed: 09/24/22 22:17> Physical Examination - Physical Exam General: Alert, In no apparent distress, Oriented x3, Obese HEENT: Atraumatic, PERRLA, Mucous membr. moist/pink, EOMI, Sclerae nonicteric Neck: Supple, 2+ carotid pulse no bruit, No LAD, Without JVD or thyroid abnormality Respiratory: Clear to auscultation bilaterally, Normal air movement Cardiovascular: Regular rate/rhythm, Normal S1 S2 Capillary refill: <2 Seconds Gastrointestinal: Normal bowel sounds, No tenderness Musculoskeletal: No tenderness Integumentary: Erythema (Right lower extremity), [place] Neurological: Normal speech, Normal strength at 5/5 x4 extr, Normal tone - Studies Laboratory Data (last 24 hrs) 09/24/22 19:13: Sodium 140, Potassium 4.3, BUN 13, Creatinine 0.77, Glucose 105, Total Bilirubin 0.2, AST 25, ALT 31, Alkaline Phosphatase 58 09/24/22 19:13: WBC 4.90, Hgb 13.0, Hct 40.5, Plt Count 142 L <Juaquin Martinez - Last Filed: 09/24/22 22:17> - Studies Laboratory Data (last 24 hrs) 09/24/22 19:13: Sodium 140, Potassium 4.3, BUN 13, Creatinine 0.77, Glucose 105, Total Bilirubin 0.2, AST 25, ALT 31, Alkaline Phosphatase 58 09/24/22 19:13: WBC 4.90, Hgb 13.0, Hct 40.5, Plt Count 142 L <Shad Griffiths - Last Filed: 09/25/22 17:02> Assessment and Plan - Plan Assessment: Chest pain rule out ACS/PE Sepsis secondary to right lower extremity cellulitis History of COPD on chronic home O24 L Anxiety/BPD/schizoaffective disorder GERD Plan: Chest pain rule out ACS/PE: Initial troponin negative, chest x-ray unremarkable. Will obtain D-dimer level, CT PE if indicated based on results of D-dimer level. Trend troponins, monitor on telemetry, cardiology consult in place. Patient denies any previous cardiac work-up. Continue with aspirin, statin. Sepsis secondary to right lower extremity cellulitis: SIRS criteria present including tachycardia, tachypnea. No leukocytosis or fevers noted, mild erythema right lower extremity. Blood cultures were obtained lactate is pending. Continue with Ancef. Negative for DVT. History of COPD on chronic home O24 L: Continue medications, at baseline no audible wheezing noted. Anxiety/BPD/schizoaffective disorder: Obtain and continue medication once verified. GERD: Continue Protonix. DVT PPX: Lovenox Code status: Full Discharge Plan: Home Plan to discharge in: 24 Hours - Advance Directives Does patient have a Living Will: No Does patient have a Durable POA for Healthcare: No - Code Status/Comfort Care Code Status Assessed: Yes (Full code) Critical Care: No Time Spent Managing Pts Care (In Minutes): 55 <Juaquin Martinez - Last Filed: 09/24/22 22:17> Physician Review: Patient Assessed, Agree with Above Assessment and Plan <Sahd Griffiths - Last Filed: 09/25/22 17:02>
[2022-09-24] MEDS ORDERED: ONDANSETRON 4 MG/2 ML VIAL IV PRN (23:19)
[2022-09-24] MEDS ORDERED: ACETAMINOPHEN 500 MG TAB PO PRN (23:19)
[2022-09-24] MEDS ORDERED: IPRATROPIUM BROM 0.5MG/2.5ML NEB PRN (23:19)
[2022-09-24] MEDS ORDERED: ALBUTEROL 2.5 MG/3 ML NEB SOL NEB PRN (23:19)
[2022-09-24 23:22] VITALS: BMI 56.7
[2022-09-25] MEDS ORDERED: NA CHLORIDE 0.9% 250 ML ONE (00:39)
[2022-09-25] MEDS: CEFAZOLIN 1 GM in NA CHLORIDE 0.9% 50 ML IVPB SCH ×3 (00:45→16:13)
[2022-09-25 06:09] LABS: Absolute Lymphocytes (CBC) 1.1 K/uL (0.7-4.9); Hematocrit 37.8 % (36.0-45.0); Lymphocytes % 24.8 % (15.3-44.8); MCV 88.9 fL (80-100); MPV 8.1 fL (7.6-11.3); RBC Red Blood Cell Count 4.25 M/uL (3.86-4.86)
[2022-09-25] MEDS ORDERED: PANTOPRAZOLE 40MG TABLET PO SCH (06:30)
[2022-09-25 06:33] LABS: Albumin 3.1 g/dL (3.4-5.0); Bilirubin Total 0.2 mg/dL (0.2-1.0); Potassium 4.2 mmol/L (3.5-5.1); Protein, Total 6.7 g/dL (6.4-8.2); Thyroid Stimulating Hormone 2.65 uIU/mL (0.358-3.740); Troponin High Sensitivity 11.9 pg/mL (<58.9)
[2022-09-25] MEDS: ENOXAPARIN 40 MG/0.4 ML SQ SCH (08:10)
[2022-09-25] MEDS: ASPIRIN EC 81 MG TAB PO SCH (08:10)
[2022-09-25] MEDS: BUDESONIDE 0.25 MG/2 ML NEB NEB SCH ×2 (08:30→20:40)
[2022-09-25] MEDS ORDERED: NYSTATIN PWDR 100000 UNIT/GM TOP PRN (10:15)
--- NOTE | 2022-09-25 17:13 | P.PN ---
Subjective Date of Service: 09/25/22 Chief Complaint: Chest pain, RLE cellulitis No acute events overnight. She reports that her chest pain is unchanged since admission. She denies any shortness of breath, cough, or palpitations. Review of Systems 10-point ROS is otherwise unremarkable Cardiovascular: Chest Pain Physical Examination - Vital Signs Temperature: 97.1 F Blood Pressure: 117/50 Pulse: 90 Respirations: 16 Pulse Ox (%): 95 - Physical Exam General: Alert, In no apparent distress, Oriented x3 HEENT: Atraumatic, Mucous membr. moist/pink, EOMI, Sclerae nonicteric Neck: JVD not distended (difficult to assess given habitus) Respiratory: Clear to auscultation bilaterally, Diminished Cardiovascular: Regular rate/rhythm, Normal S1 S2, No gallops, No rubs, No murmurs, Edema (1+ BLE) Gastrointestinal: Normal bowel sounds, Soft and benign, Non-distended, No tenderness, No rebound, No guarding Musculoskeletal: No clubbing Integumentary: Rash(es) (RLE erythema, warmth, tenderness) Neurological: Normal speech, Cranial nerves 3-12 intact, Normal affect - Studies Laboratory Data (last 24 hrs) 09/24/22 19:13: Sodium 140, Potassium 4.3, BUN 13, Creatinine 0.77, Glucose 105, Total Bilirubin 0.2, AST 25, ALT 31, Alkaline Phosphatase 58 09/24/22 19:13: WBC 4.90, Hgb 13.0, Hct 40.5, Plt Count 142 L Assessment And Plan - Plan # Sepsis likely secondary to Right Lower Extremity Cellulitis She met sepsis criteria based on HR > 90 bpm, RR > 20 breaths/min, and the suspected source is cellulitis. - RLE ultrasound = "no DVT in the right lower extremity." - Sepsis order set was initiated - Initial Lactate was 0.8 - Blood cultures drawn before antibiotics were given - Broad spectrum antibiotics started: Cefazolin + Doxycycline - In regards to fluids: - 30 mL/kg of IV fluids was not administered given SBP > 90, MAP > 65, lactic acid < 4 # Chest Pain, atypical # Morbid Obesity - BMI 56.7 kg/m2 - Reports a "normal" heart cath in 2019 - Evaluation thus far: - EKG: without STEMI criteria, trend - Serial troponin: 11.4 -> 11.6 -> 11.9 - Ordered transthoracic echocardiogram - Chest x-ray = "limited portable study without acute cardiopulmonary finding." - NT-Pro BNP = 57 (may be falsely low/normal in obesity) - D-dimer = 560 - CT chest angiogram pending - Management plan: - Consult Cardiology and spoke with Dr. Adkins - recommendations appreciated - Continue aspirin, atorvastatin - If cardiac ischemia confirmed, plan to start beta-júnior, ELVA- inhibitor/ARB as tolerated # Chronic Respiratory Failure secondary to Chronic Obstructive Pulmonary Disease on Home Oxygen (4 L) - Does not appear to be in acute COPD exacerbation - Continue home inhalers # Gastroesophageal Reflux Disease - Continue home pantoprazole # Bipolar Disorder # Schizoaffective Disorder # Anxiety - Resume home meds once verified Shad Griffiths M.D.
--- NOTE | 2022-09-25 17:45 | CON ---
Date of Consultation: 09/25/2022 Reason For Consultation: Chest pain. History Of Present Illness: 71-year-old female with history of COPD, morbid obesity, bipolar disorde r, hypertension, presented to the emergency room because of chest pain, left-sided, radiated to the n sera and shoulder, sharp in nature. This happened yesterday at rest and completely resolved and since admission, she has been completely pain free. She has shortness of breath with lower extremity harry a and some orthopnea. Past Medical History: As outlined above in the HPI. Medications: Refer reconciliation sheet for detailed list. Allergies: NO KNOWN DRUG ALLERGIES. Family History: No premature coronary artery disease or cancer. Social History: She does not drink or use any drugs. Review of Systems: All systems reviewed and they were negative except for mentioned in HPI. Physical Examination: Vital Signs: Reviewed. Head and Neck: Pupils are equal, reactive to light. Intact eye movements. No JVD. No cervical lym phadenopathy. Neck: Supple. Thyroid is not enlarged. Lungs: Decreased breathing sounds with wheezing bilaterally. No accessory muscle use or muscle retr action. Heart: Regular rate and rhythm. No extra sounds. Abdomen: Soft, nontender. Bowel sounds positive. No organomegaly. No masses or hernia. No rigidi ty or rebound. Extremities: Edema bilaterally 1+ with some erythema of the lower extremity. No clubbing, cyanosis. Intact pulses. Skin: No rash. Neurologic: Alert, awake, oriented x3. No acute focal deficits appreciated. Investigations: Cardiac enzymes x3 are negative. BUN is 14, creatinine 0.7, hemoglobin is 12. Assessment And Recommendations: 1.Chest pain is atypical pain. Cardiac enzymes are negative. This is likely noncardiac. No inpati ent further workup is recommended. Plan for an outpatient stress test and an echo. 2.Shortness of breath, likely due to chronic obstructive pulmonary disease and probably diastolic he art failure. Recommend gentle diuresis and chronic obstructive pulmonary disease management. Thank you for the consult. /VIDHI Voice ID: [id number] Report ID: [id number]
[2022-09-25] MEDS: MORPHINE 2 MG/ML SYR IV PRN (19:47)
[2022-09-25] MEDS ORDERED: ATORVASTATIN 40 MG TAB PO SCH (21:00)
--- NOTE | 2022-09-25 22:00 | RAD REPORT ---
EXAM DESCRIPTION: CT - Chest For Pe Angio - 09/25/2022 9:46 pm CLINICAL HISTORY: Chest pain. rule out PE COMPARISON: Thorax W/ Con dated 07/22/2020; Extremity Venous Uni Ltd dated 09/24/2022 TECHNIQUE: CT angiogram of the pulmonary arteries was performed with MIP. All CT scans are performed using dose optimization technique as appropriate and may include automated exposure control or mA/KV adjustment according to patient size. FINDINGS: No evidence of pulmonary thromboembolism. No acute aortic finding demonstrated. Mild subsegmental atelectasis is seen in both lung bases. The lungs are otherwise clear. No significant pericardial or pleural fluid. No concerning bony finding. Nodularity is noted in both adrenal glands, incompletely assessed. IMPRESSION: No evidence of pulmonary thromboembolism. Mild atelectasis in both lung bases.
[2022-09-25] MEDS: DOXYCYCLINE 100 MG CAP PO SCH (22:34)
[2022-09-25] MEDS ORDERED: ALBUTEROL INHALER 60 PUFF/8 GM IH PRN (22:38)
[2022-09-25] MEDS ORDERED: ROPINIROLE HCL 0.25 MG TAB PO SCH (22:39)
[2022-09-25] MEDS ORDERED: TRAZODONE 50 MG TABLET PO SCH (22:39)
[2022-09-25] MEDS: BUSPIRONE HCL 5 MG TABLET PO SCH (22:39)
[2022-09-26] MEDS: CEFAZOLIN 1 GM in NA CHLORIDE 0.9% 50 ML IVPB SCH (00:41)
[2022-09-26 03:53] LABS: Absolute Lymphocytes (CBC) 1.2 K/uL (0.7-4.9); Hematocrit 37.9 % (36.0-45.0); Lymphocytes % 24.8 % (15.3-44.8); MCV 88.3 fL (80-100); MPV 8.1 fL (7.6-11.3); RBC Red Blood Cell Count 4.29 M/uL (3.86-4.86)
[2022-09-26] MEDS: MORPHINE 2 MG/ML SYR IV PRN (03:55)
[2022-09-26 04:14] LABS: Albumin 3.1 g/dL (3.4-5.0); Bilirubin Total 0.2 mg/dL (0.2-1.0); Protein, Total 6.4 g/dL (6.4-8.2)
[2022-09-26] MEDS ORDERED: LEVOTHYROXINE SOD 0.025 MG TAB PO SCH (06:00)
[2022-09-26] MEDS ORDERED: PANTOPRAZOLE 40MG TABLET PO SCH (06:30)
[2022-09-26] MEDS: BUDESONIDE 0.25 MG/2 ML NEB NEB SCH (08:00)
[2022-09-26 08:14] VITALS: BP 118/56; TEMP 97
--- NOTE | 2022-09-26 08:32 | P.DS ---
Admission Date: 09/24/22 Discharge Date: 09/26/22 Primary Care Provider: CATE Rogers Disposition: ROUTINE DISCHARGE Discharge Condition: GOOD Reason for Admission: Chest pain, RLE cellulitis Consultations: 1. Cardiology Hospital Course: DIAGNOSES: # Sepsis likely secondary to Right Lower Extremity Cellulitis # Chest Pain, atypical # Morbid Obesity - BMI 56.7 kg/m2 # Chronic Respiratory Failure secondary to Chronic Obstructive Pulmonary Disease on Home Oxygen (4 L) # Gastroesophageal Reflux Disease # Bipolar Disorder # Schizoaffective Disorder # Anxiety HOSPITAL COURSE: Ms. Cassia Garcia is a 71 year old female with a past medical history significant for chronic respiratory failure secondary to COPD on home oxygen (4 L), bipolar disorder, schizoaffective disorder, and anxiety who was admitted to the [facility] on 09/24/2022 for chest pain. She was admitted to the Medicine service. Upon further evaluation, she was found to have right lower extremity cellulitis, for which she met sepsis criteria. She was treated with IV antibiotics, with improvement of her symptoms. In regards to her chest discomfort, her EKG was without STEMI criteria and troponin trend was 11.4, 11.6, and 11.9, respectively. She was found to have a mildly elevated D- dimer, so a CT chest angiogram was obtained, which revealed, "no evidence of pulmonary thromboembolism. Mild atelectasis in both lung bases." Cardiology was consulted and she was evaluated by Dr. Adkins. He did not feel that her symptoms were secondary to an acute coronary event. He has cleared her for discharge with outpatient follow-up for with a transthoracic echocardiogram and outpatient cardiac stress test. Of note, on her CT scan, "nodularity is noted in both adrenal glands, incompletely assessed." She was informed of these findings and advised to follow-up with her PCP for further evaluation. She verbalized understanding and agreed to make this appointment. On 09/26/2022, she was seen on morning rounds and deemed medically stable for discharge. She was discharged with instructions to schedule follow-up appointments with her PCP (CATE Menchaac), with Cardiology (Dr. Adkins), and with Pulmonology (Dr. Eisenberg). She was provided prescriptions for cephalexin and doxycycline. She was given the opportunity to ask questions and reported no fur ther questions. Furthermore, all questions were answered to the best of my ability. A copy of this discharge summary will be sent to the above providers to facilitate continuity of care. Today, I personally spent 25 minutes on her discharge, of which greater than 50% of the time was spent in patient education, counseling, and coordination of care as described above. - Physical Exam General: Alert, In no apparent distress, Oriented x3 HEENT: Atraumatic, Mucous membr. moist/pink, Sclerae nonicteric Neck: JVD not distended (difficult to assess given habitus) Respiratory: Clear to auscultation bilaterally, without wheezes, rhonchi, or rales Cardiovascular: Regular rate/rhythm, Normal S1 S2, No gallops, No rubs, No murmurs, Edema (1+ BLE) Gastrointestinal: Normal bowel sounds, Soft and benign, Non-distended, No tenderness, No rebound, No guarding Musculoskeletal: No clubbing Integumentary: Rash(es) (RLE erythema, warmth, tenderness - much improved compared to yesterday) Neurological: Normal speech, Normal affect Vital Signs/Physical Exam: Temp Pulse Resp BP Pulse Ox 97 F 85 19 118/56 L 93 09/26/22 08:00 09/26/22 08:00 09/26/22 08:00 09/26/22 08:00 09/26/22 08:00 Laboratory Data at Discharge: WBC 4.70 K/uL (4.3-10.9) 09/26/22 03:10 Hgb 12.1 g/dL (12.0-15.0) 09/26/22 03:10 Hct 37.9 % (36.0-45.0) 09/26/22 03:10 Plt Count 154 K/uL (152-406) 09/26/22 03:10 Sodium 140 mmol/L (136-145) 09/26/22 03:10 Potassium 4.0 mmol/L (3.5-5.1) 09/26/22 03:10 BUN 14 mg/dL (7-18) 09/26/22 03:10 Creatinine 0.76 mg/dL (0.55-1.02) 09/26/22 03:10 Glucose 104 mg/dL (74-106) 09/26/22 03:10 Magnesium 2.0 mg/dL (1.6-2.4) 09/26/22 03:10 Total Bilirubin 0.2 mg/dL (0.2-1.0) 09/26/22 03:10 AST 14 U/L (15-37) L 09/26/22 03:10 ALT 24 U/L (13-56) 09/26/22 03:10 Alkaline Phosphatase 47 U/L (45-117) 09/26/22 03:10 Triglycerides 112 mg/dL (<150) 09/25/22 05:27 Cholesterol 152 mg/dL (<200) 09/25/22 05:27 HDL Cholesterol 37 mg/dL (40-60) L 09/25/22 05:27 Cholesterol/HDL Ratio 4.11 09/25/22 05:27 Home Medications: RX: Aripiprazole [Abilify] 20 mg PO DAILY 09/30/18 RX: Duloxetine HCl 60 mg PO DAILY 09/30/18 RX: Levothyroxine [Synthroid*] 0.025 mg PO [id number] 09/30/18 RX: Montelukast [Singulair*] 10 mg PO DAILY 09/30/18 RX: Ropinirole HCl [Requip*] 0.25 mg PO BEDTIME 09/30/18 RX: Trazodone HCl 100 mg PO BEDTIME 09/30/18 RX: Albuterol Inhaler [Ventolin Inhaler*] 2 puff IH Q6H PRN #1 hfa.aer.ad 07/10/21 RX: Buspirone HCl 15 mg PO BID #60 tablet 07/10/21 RX: Meloxicam 1 tab PO DAILY 09/25/22 RX: Pantoprazole [Protonix Tab*] 1 tab PO DAILY 09/25/22 Cephalexin [Keflex] 500 mg PO BID 5 Days #10 cap 09/26/22 RX: Doxycycline Hyclate [Vibramycin] 100 mg PO BID 5 Days #10 tab 09/26/22 New Medications: Cephalexin [Keflex] 500 mg PO BID 5 Days #10 cap RX: Doxycycline Hyclate [Vibramycin] 100 mg PO BID 5 Days #10 tab Physician Discharge Instructions: 1. Please call and schedule a follow-up appointment with your PCP (CATE Menchaca) in 3-5 days - Please follow-up the abnormal finding on your adrenal glands 2. Please call and schedule a follow-up appointment with Cardiology (Dr. Adkins) in 5-7 days - He will schedule you for an outpatient echocardiogram and a cardiac stress test 3. Please call and schedule a follow-up appointment with Pulmonary Medicine (Dr. Eisenberg) in 3-5 days Diet: AHA Activity: Ad karey Followup: Demarcus Adkins MD [ACTIVE - CAN ADMIT] - Anneliese Menchaca FNPC [ALLIED HEALTH PROFESSIONAL] - Addison Eisenberg MD [ACTIVE - CAN ADMIT] - Time spent managing pt's care (in minutes): 25
[2022-09-26] MEDS: BUSPIRONE HCL 5 MG TABLET PO SCH (08:45)
[2022-09-26] MEDS: DOXYCYCLINE 100 MG CAP PO SCH (08:46)
[2022-09-26] MEDS: ASPIRIN EC 81 MG TAB PO SCH (08:47)
[2022-09-26] MEDS: ENOXAPARIN 40 MG/0.4 ML SQ SCH (08:48)
[2022-09-26] MEDS ORDERED: MELOXICAM 7.5 MG TAB PO SCH (09:00)
[2022-09-26] MEDS ORDERED: DULOXETINE 30 MG CAP PO SCH (09:00)
[2022-09-26] MEDS ORDERED: MONTELUKAST 10 MG TAB PO SCH (09:00)
[2022-09-26] MEDS ORDERED: ARIPiprazole 5 MG TAB PO SCH (09:00)
[2022-09-26] MEDS ORDERED: CEFTRIAXONE 1,000 MG in NA CHLORIDE 0.9% 50 ML IVPB SCH (09:00)
[2022-09-26] MEDS ORDERED: FUROSEMIDE 20 MG/ 2ML VIAL IV SCH (09:00)
[2022-09-26 13:06] VITALS: O2SAT 96
--- NOTE | 2022-09-30 17:56 | EKG ---
Test Date: 2022-09-24 Test Time: 19:01:55 Cementing Bulk Material Operator: JUNE MEASUREMENT RESULTS: Intervals: Rate: 94 HI: 166 QRSD: 88 QT: 338 QTc: 422 [place]: P: 45 HI: 166 QRS: 48 T: 30 INTERPRETIVE STATEMENTS: Normal sinus rhythm Normal ECG Compared to ECG 06/18/2021 16:37:06 No significant changes Electronically Signed On 09-30-22 17:49:17 CHEMICAL OPERATIONS SPECIALIST by Demarcus Adkins
== END 2022-09-26 11:12 | disposition home or self-care (01) ==
LOC: ER 18:56 → ERHOLD 22:08 → 2ND 22:31
PROVIDERS: ADMIT Internal Medicine; ATTEND Internal Medicine
DX: L03.115 Cellulitis of right lower limb (principal); A41.9 Sepsis, unspecified organism; J96.10 Chronic respiratory failure, unspecified whether with hypoxia or hypercapnia; J44.9 Chronic obstructive pulmonary disease, unspecified; R07.89 Other chest pain; F41.9 Anxiety disorder, unspecified; F20.9 Schizophrenia, unspecified; E66.9 Obesity, unspecified; K21.9 Gastro-esophageal reflux disease without esophagitis; E66.01 Morbid (severe) obesity due to excess calories; F31.9 Bipolar disorder, unspecified; Z99.81 Dependence on supplemental oxygen; Z68.43 Body mass index [BMI] 50.0-59.9, adult
CPT/HCPCS: 36415; 71045; 71275; 80053; 80061; 83605; 83735; 83880; 84145; 84439; 84443; 84484; 85025; 85379; 87040; 87811; 93005; 93971; 96365; 96375; 99285; G0378; J0690; J0696; J1650; J1940; J2270; J7050; J7634; J7644; Q9967

== ENCOUNTER 2022-10-21 20:55 | Emergency (ER) | payer OTHER ==
--- OUTSIDE RECORDS SUMMARY | 2022-10-21 20:58 | XMS REPORT | Continuity of Care Document ---
:1950 Author Organization [facility] t Address [address] Romero [address] [place] [address] Care Team Providers Name Role Phone Ck [...] [facility] 00 Mello Mancuso Medications This patient has no known medications. Procedures This patient has no known procedures. Encounters Start End Encounter Admission Attending Care Care Encounter Source Date/Time Date/Time Type Type Clinicians Facility Department ID 2020-07-28 Inpatient R ENEDINA Balbuena [facility] [id number] [facility] Ck [id number] [facility] 2019-12-27 [id number] Ck -[id number] [facility] 2022-04-27 2022-04-27 Outpatient RANDY HILAMAR [place] [id number] [place] 10:32:00 10:32:00 H 0726 da [facility] 2019-12-20 2019-12-20 Outpatient ENEDINA Balbuena [facility] [id number] 14:00:00 14:00:00 Ck -[id number] [facility] [place] 2019-12-13 2019-12-13 Outpatient Esha, [facility] [id number] 11:00:00 11:00:00 Ck Rick Rocha 2019-12-10 2019-12-10 [id number] 00:00:00 00:00:00 Ck [facility] Mello Mancuso Results Test Description Test Time Test Comments [...] Hematology (test code = PCOMMENT) Appears Adequate [id number] 14:37:00 Test Item Value Reference Range Interpretation [...] code 8.9 mg/dL 7.8-10.44 N = CA) [id number] 13:03:00 Test Item Value Reference Range Interpretation [...] UABLD) Small Negative A Urine Source: Urine [id number] 13:03:00 Test Item Value Reference Range Interpretation [...] LPF <2+ UAMCS) Urine Source: Urine VoidedCulture, [id number] 15:24:00 Test Item Value Reference Range Interpretation Comments Culture, Blood (test code = BC) NG5 Culture, [id number] 15:24:00 Test Item Value Reference Range Interpretation Comments Culture, Blood (test code = BC) NG5 [id number] 06:54:00 Test Item Value Reference Range Interpretation [...] code 9.5 mg/dL 7.8-10.44 N = CA) [id number] 06:35:00 Test Item Value Reference Range Interpretation [...] code = BASO#) 0.0 thou/uL 0.0-0.2 N [id number] 07:40:00 Test Item Value Reference Range Interpretation [...] code 8.9 mg/dL 7.8-10.44 N = CA) [id number] 07:19:00 Test Item Value Reference Range Interpretation [...] thou/uL 0.0-0.2 N Chemistry - BNP, HgbA1c, [id number] 19:31:00 Test Item Value Reference Range Interpretation Comments Chemistry - BNP, HgbA1c, PTHi 32.8 pg/mL 0-100 N (test code = BNP) [id number] 19:30:00 Test Item Value Reference Range Interpretation Comments Chemistry (test Less than < 0.028 code = TROPI-R) 0.010 ng/mL Reference Ra nge 0.00 - 0.028 ng /mL Negative 0.029 - 0.29 ng/mL Indetermi hesham Greater or Equa l to 0.3 ng/mL Stron gly suggests PR [id number] 19:28:00 Test Item Value Reference Range Interpretation [...] U/L 8-55 N = ALT) Chemistry - [id number] 19:24:00 Test Item Value Reference Range Interpretation Comments Chemistry - Lactate (test code = 0.9 mmol/L 0.5-2.2 N LACTSEP-T) [id number] 19:14:00 Test Item Value Reference Range Interpretation [...] Imaging Center Pt Name: JEN DURON [address] [facility]. Phys: [place] [address] : 1950 Age: 69 SEX:F [phone] Exam Date: 12/27/19 Status: REG CLI Acct: [id number]: BICMAMMO Pt Unit #: [id number] Report #: [id number] CC: Ck Balbuena MD MAMMOGRAPHY REPORT Order # Category/Exam [id number] MMO/MAMMO Unilat Diag DDI LT+ALIREZA ([id number]): . Results 2 Left Breast MAMMO Unilat [...] The present examination has been compared to priorimaging studies performed at [facility] on 06/07[facility]2019, 09/12/2019 and 12/27/2019. This study hasbeen interpreted with the assistance of computer-aided detection. [...] detected by mammography. 3. Adenosis and dense breastsmay obscure an underlying neoplasm. Reported by: BRYAN CARTER MD Electonically Signed: [id number] Reported By: Bryan Carter MD Electronically Signed Date/Time: 12/27/19 1055 Technologist: JASS Dictated Date/Time: 12/27/19 Transcribed Date/Time: 12/27/19MAMMO Unilat Diag DDI LT+ALIREZA [facility] Pt Name: JEN DURON [address] [facility]. Phys: [place] [address] : 1950 Age: 69 SEX:F [phone] Exam Date: 12/27/19 Status: REG CLI Acct: [id number]: BICMAMMO Pt Unit #: [id number] Report #: [id number] CC: Ck Balbuena MD MAMMOGRAPHY REPORT Order# Category/Exam [id number] MMO/MAMMO Unilat Diag DDI LT+ALIREZA ([id number]): . Results 2 Left Breast MAMMO Unilat [...] compared to prior imaging studies performed at [facility] on 06/07/2019, 09/12/2019 and 12/27/2019. [...] Benign finding MAMMOGRAPHY NOTE: 1. A negative mammogramreport should not delay a biopsy if a dominant of clinically suspicious mass is present. 2. Approximately 10% to 15% of breast cancers are not detected by mammography. 3. Adenosis and dense breasts mayobscure an underlying neoplasm. Reported by: BRYAN CARTER MD Electonically Signed: [id number] Reported By: Bryan Carter MD Electronically Signed Date/Time: 12/27/19 1055 Technologist: [email or web address] Dictated Date/Time: 12/27/19 Transcribed Date/Time: 12/27/19 [facility] Pt Name: JEN DURON [address] [facility]. Phys: Ck Balbuena [place], [place] [address] : 1950 Age: 69 SEX:F [phone] Exam Date: 12/27/19 Status: REG CLI Acct: [id number]: ASHVINFARHANADEYANIRA Pt Unit #: [id number] Report #: [id number] CC: Ck Balbuena MD ULTRASOUND REPORT Order # Category/Exam [id number] ULT/US Breast Limited Lt ([id number]): . Results 2 LEFT BREAST ULTRASOUND: Date: 12/27/2019 COMPARISON: Mammogram dated 12/27/2019, ultrasound dated 09/12/2019, and mammogram/ultrasound dated 06/07/2019. HISTORY: Mass seen in the left breast at the 3 o'clock position. This mayrepresent fat necrosis. TECHNIQUE: Multiplanar Mathews scale and color Doppler images were obtained in a targeted ultrasound of the left breast. FINDINGS: [...] MD Electronically Signed Date/Time: 12/27/19 1300 Technologist: [email or web address] Dictated Date/Time: 12/27/19 1053 Transcribed Date/Time: 12/27/19 1205CT Neck Soft Tissue W Paulo Reynolds Pt Name: DURON[address] Phys: [place] [address] : 1950 Age: 68 SEX:F [phone] Exam Date: 10/18/19 Status: DEP ER Acct: [id number] Loc: MARIA E Pt Unit #: [id number] Report #: [id number] CC: MELLO GRIGSBY MD CAT SCAN REPORT Order # Category/Exam [id number] CT/CT Neck Soft Tissue W Con ([id number]): . Results POSTCONTRAST SOFT TISSUE NECK CT [...] 10/18/19 1521 Transcribed Date/Time:XR Chest 1 View [facility] Name: JEN DURON [address] Phys: [place] [address] : 1950 Age: 68 SEX:F [phone] Exam Date: 10/18/19 Status: DEP ER Acct: [id number] Loc: MARIA E Pt Unit #: [id number] Report #: [id number] CC: MELLO GRIGSBY MD IMAGING SERVICES REPORT Order # Category/Exam [id number] RAD/XR Chest 1 View Portable ([id number]): . Results PORTABLE CHEST: 10/18/19 Comparison is made with a prior examination of 02/17/19. The heart is normal in size. Calcification is seen in the aortic arch as before. The lungs are fully inflated and clear. There is no vascular congestion, edema, or pleural effusion. Old healed rib fractures are present on the left and were s een previously. IMPRESSION: No acute thoracic findings. POS: HOME Reported By: FAITH CAMPBELL MD Electronically Signed Date/Time: 10/18/19 230 Technologist: BLT Dictated Date/Time: 10/18/19 2100 Transcribed Date/Time: 10/18/192119 [facility] Pt Name: EJN DURON [address] [facility]. Phys: [place] [address] : 1950 Age: 68 SEX:F [phone] Exam Date: 09/12/19 Status: REG CLI Acct: [id number]: BICULT Pt Unit #: [id number] Report #: [id number] CC: Ck Balbuena MD ULTRASOUND REPORT Order # Category/Exam [id number] ULT/US Breast Limited Lt ([id number]): . Results 3 LEFT BREAST DIAGNOSTIC ULTRASOUND: [...] [facility] Pt Name: JEN DURON [address] [place] [address]. Phys: [place] [address] : 1950 Age: 68 SEX:F [phone] Exam Date: 06/07/19 Status: REG CLI Acct: [id number]: BICMAMMO Pt Unit #: [id number] Report #: [id number] CC: Ck Balbuena MD MAMMOGRAPHY REPORT Order# Category/Exam [id number] MMO/MAMMO Bilat Diag DDI+ALIREZA ([id number]): . Results 3 Bilateral MAMMO Bilat Diag [...] been compared to prior [facility] on [facility], and at [facility] on 09/29/2018. MAMMOGRAM FINDINGS:The breasts are [...] benign finding - short interval follow-up suggested. [facility] will notify the patient of the need for additional imaging services. MAMMOGRAPHY NOTE: 1. A negative mammogram report should not delay a biopsy if a dominant of clinically suspicious mass is present. 2. Approximately 10% to 15% of breast cancers are not detected by mammography. 3. Adenosis and dense breasts may obscure an underlying neoplasm. Reported by: JAVY MULLINS MD Electonically Signed: [id number] Reported By: Javy Mullins MD Electronically Signed Date/Time: 06/07/19 0916 Technologist: JENNIFER Dictated Date/Time: 06/07/19 Transcribed Date/Time: 06/07/19US Breast Limited Lt [facility] Pt Name: DURON,JEN G [address] [place] [address]. Phys: [place] [address] : 1950 Age: 68 SEX:F [phone] Exam Date: 06/07/19 Status: REG CLI Acct: [id number]: BICFARHANAMMO Pt Unit #: [id number] Report #: [id number] CC: Ck Balbuena MD ULTRASOUND REPORT Order # Category/Exam [id number] ULT/US Breast Limited Lt ([id number]): . Results 3 DIAGNOSTIC LEFT BREAST ULTRASOUND: Date: 06/07/19 INDICATION: Palpable, post- traumatic left breast lump. FINDINGS: There is acomplex cystic focus, 1.1 cm, at site of [...] of cysts within the site of patient's post-traumatic left breast abnormality. Findings and recommendations were discussed with the patient, who understands and is amenable to the follow-up plan. POS: OFF Reported By: Javy Mullins MD Electronically Signed Date/Time: 06/07/19 1123 Technologist: VSSDictated Date/Time: 06/07/19 0922 Transcribed Date/Time: 06/07/19 0959MAMMO Bilat Diag [facility] Pt Name: JEN DURON [address] [facility]. Phys: [place] [address] : 1950 Age: 68 SEX:F [phone] Exam Date: 06/07/19 Status: DEP CLI Acct: [id number]: BICSESAR Pt Unit #: [id number] Report #: [id number] CC: Ck Balbuena MD MAMMOGRAPHY REPORT Order# Category/Exam [id number] MMO/MAMMO Bilat Diag DDI+ALIREZA ([id number]): . Results 3 Bilateral MAMMO Bilat Diag [...] been compared to [facility], and at [facility] on 09/29/2018. MAMMOGRAM FINDINGS:The breasts are [...] benign finding - short interval follow-up suggested. [facility] will notify the patient of the need for additional imaging services.MAMMOGRAPHY NOTE: 1. A negative mammogram report should not delay a biopsy if a dominant of clinically suspicious mass is present. 2. Approximately 10% to 15% of breast cancers are not detected by mamm ography. 3. Adenosis and dense breasts may obscure an underlying neoplasm. Reported by: JAVY MULLINS MD Electonically Signed: [id number] Reported By: Javy Mullins MD Electronically Signed Date/Time: 06/07/19 0916 Technologist: JENNIFER Dictated Date/Time: 06/07/19 Transcribed Da te/Time: 06/07/19XR Chest Pa Lat [facility] Pt Name: JEN DURON Dr. Phys: [place] [address] : 1950 Age: 68 SEX:F [phone] Exam Date: 02/17/19 Status: DEP ER Acct: [id number] [facility] Pt Unit #: [id number] Report #: [id number] CC: ESTEPHANIE MANRIQUE MD IMAGING SERVICES REPORT Order # Category/Exam [id number] RAD/XR Chest Pa Lat STANDARD ([id number]): . Results T CHEST TWO VIEWS: 02/17/19 [...] By: FAITH CAMPBELL MD Electronically Signed Date/Time: 02/17/195 Technologist: ROBSON Dictated Date/Time: 02/17/192299 Transcribed Date/Time: 02/17/192303
--- NOTE | 2022-10-21 22:28 | RAD REPORT ---
EXAM DESCRIPTION: US - Extremity Venous Uni Ltd - 10/21/2022 10:22 pm CLINICAL HISTORY: Pain Leg swelling and edema. COMPARISON: Extremity Venous Uni Ltd dated 09/24/2022 FINDINGS: Right lower extremity venous system was interrogated with Doppler technique. Normal flow, compressibility and augmentation was noted. There is no DVT present. IMPRESSION: No evidence of right lower extremity deep venous thrombosis.
--- NOTE | 2022-10-21 22:29 | RAD REPORT ---
EXAM DESCRIPTION: RAD - Knee Right 3 View - 10/21/2022 10:24 pm CLINICAL HISTORY: Pain COMPARISON: No comparisons FINDINGS: Mild tricompartmental osteoarthritis is present. No fracture or dislocation seen. Small karen int effusion likely present.
--- NOTE | 2022-10-21 22:32 | EDPHYS ---
Physician Documentation [facility] Name: Cassia Garcia Age: 71 yrs Sex: Female : 1950 Arrival Date: 10/21/2022 Time: 20:55 Bed 12 Private MD: KYLEE Physician Phil Carey HPI: 10/21 22:34 This 71 yrs old Female presents to ER via Wheelchair with complaints of Knee Injury. snw 22:34 The patient presents with a contusion, decreased range of motion, an injury, pain, that snw is acute. The complaints affect the right knee. Onset: The symptoms/episode began/occurred acutely. Severity of symptoms: At their worst the symptoms were moderate. The patient has not experienced similar symptoms in the past. It is unknown whether or not the patient has recently seen a physician. fell last week, pt states right knee gave out on her today she fell out of the vehicle when she was getting out.. Historical: - Allergies: 21:20 paper tape; eh3 - Home Meds: 21:20 aripiprazole Oral [Active]; benzonatate Oral [Active]; Buspirone Oral [Active]; eh3 duloxetine Oral [Active]; levothyroxine oral [Active]; montelukast Oral [Active]; Nystatin Vaginal [Active]; ropinirole Oral [Active]; Trazodone Oral [Active]; - PMHx: 21:20 Anxiety; Bipolar disorder; COPD; Schizophrenia; eh3 - PSHx: 21:20 section; Cholecystectomy; hysterectomy; eh3 - Immunization history:: Adult Immunizations up to date. - Social history:: Smoking status: Patient denies any tobacco usage or history of. Patient uses alcohol, occasionally. ROS: 22:33 Constitutional: Negative for fever, chills, and weight loss, Eyes: Negative for injury, snw pain, redness, and discharge, ENT: Negative for injury, pain, and discharge, Neck: Negative for injury, pain, and swelling, Cardiovascular: Negative for chest pain, palpitations, and edema, Respiratory: Negative for shortness of breath, cough, wheezing, and pleuritic chest pain, Abdomen/GI: Negative for abdominal pain, nausea, vomiting, diarrhea, and constipation, Back: Negative for injury and pain, : Negative for injury, bleeding, discharge, and swelling, Skin: Negative for injury, rash, and discoloration, Neuro: Negative for headache, weakness, numbness, tingling, and seizure, Psych: Negative for depression, anxiety, suicide ideation, homicidal ideation, and hallucinations. 22:33 MS/extremity: Positive for injury or acute deformity, contusion, decreased range of motion, pain, swelling, of the right leg. Exam: 22:33 Constitutional: This is a well developed, well nourished patient who is awake, alert, snw and in no acute distress. Head/Face: Normocephalic, atraumatic. Eyes: Pupils equal round and reactive to light, extra-ocular motions intact. Lids and lashes normal. Conjunctiva and sclera are non-icteric and not injected. Cornea within normal limits. Periorbital areas with no swelling, redness, or edema. ENT: Nares patent. No nasal discharge, no septal abnormalities noted. Tympanic membranes are normal and external auditory canals are clear. Oropharynx with no redness, swelling, or masses, exudates, or evidence of obstruction, uvula midline. Mucous membranes moist. Neck: Trachea midline, no thyromegaly or masses palpated, and no cervical lymphadenopathy. Supple, full range of motion without nuchal rigidity, or vertebral point tenderness. No Meningismus. Chest/axilla: Normal chest wall appearance and motion. Nontender with no deformity. No lesions are appreciated. Cardiovascular: Regular rate and rhythm with a normal S1 and S2. No gallops, murmurs, or rubs. Normal PMI, no JVD. No pulse deficits. Respiratory: Lungs have equal breath sounds bilaterally, clear to auscultation and percussion. No rales, rhonchi or wheezes noted. No increased work of breathing, no retractions or nasal flaring. Abdomen/GI: Soft, non-tender, with normal bowel sounds. No distension or tympany. No guarding or rebound. No evidence of tenderness throughout. Back: No spinal tenderness. No costovertebral tenderness. Full range of motion. Skin: Warm, dry with normal turgor. Normal color with no rashes, no lesions, and no evidence of cellulitis. Neuro: Awake and alert, GCS 15, oriented to person, place, time, and situation. Cranial nerves II-XII grossly intact. Motor strength 5/5 in all extremities. Sensory grossly intact. Cerebellar exam normal. Normal gait. Psych: Awake, alert, with orientation to person, place and time. Behavior, mood, and affect are within normal limits. 22:33 Musculoskeletal/extremity: Extremities: grossly normal except: noted in the right knee: contusion, decreased ROM, swelling, tenderness. Vital Signs: 21:19 BP 151 / 85; Pulse 91; Resp 18; Temp 98.6(O); Pulse Ox 98% 2 lpm ; Weight 137.44 kg; 3 Height 5 ft. 1 in. (154.94 cm); Pain 10/10; 22:30 BP 141 / 78; Pulse 83; Resp 18; Pulse Ox 97% on 2 lpm NC; eh3 23:03 BP 143 / 85; Pulse 74; Resp 18; Pulse Ox 97% on 2 lpm NC; eh3 21:19 Body Mass Index 57.25 (137.44 kg, 154.94 cm) 3 MDM: 21:13 Patient medically screened. erika 22:32 Differential diagnosis: contusion, fracture, sprain, strain. Data reviewed: vital snw signs, nurses notes, radiologic studies, plain films, ultrasound. I considered the following discharge prescriptions or medication management in the emergency department Medications were administered in the Emergency Department. See MAR. Special discussion: Based on the history and exam findings, there is no indication for further emergent testing or inpatient evaluation. I discussed with the patient/guardian the need to see the orthopedic surgeon for further evaluation of the symptoms. I discussed with the patient/guardian the need to see the primary care provider for further evaluation of the symptoms. 10/21 22:01 Order name: Knee Right 3 View XRAY; Complete Time: 22:30 snw 10/21 22:01 Order name: US Extremity Venous Unilateral Ltd; Complete Time: 22:30 snw 10/21 22:30 Order name: Rasheed wrap-joint: right knee; Complete Time: 23:03 snw Administered Medications: 22:44 Drug: [place] (HYDROcodone-acetaminophen) 5 mg-325 mg 1 tabs Route: PO; 3 23:46 Follow up: Response: Medication administered at discharge. eh3 23:10 Drug: [place] (HYDROcodone-acetaminophen) 5 mg-325 mg 1 tabs Route: PO; 3 23:46 Follow up: Response: Medication administered at discharge. eh3 Disposition Summary: 10/21/22 22:31 Discharge Ordered Location: Home snw Condition: Stable snw Diagnosis - Osteoarthritis of knee, unspecified snw - Effusion of joint snw - Fall on same level from slipping, tripping and stumbling with subsequent striking snw against object Followup: snw - With: Emergency Department - When: As needed - Reason: Worsening of condition Followup: snw - With: Private Physician - When: 5 - 6 days - Reason: Recheck today's complaints, Continuance of care, Re-evaluation by your physician Discharge Instructions: - Discharge Summary Sheet snw - Arthritis snw - Fall Prevention in the Home, Adult snw - How to Use a Knee Brace snw - Osteoarthritis snw - RICE Therapy for Routine Care of Injuries snw - Heat Therapy snw Forms: - Medication Reconciliation Form snw - Thank You Letter snw - Antibiotic Education snw - Prescription Opioid Use snw - Family Work Release snw Prescriptions: - Mobic 7.5 mg Oral Tablet - take 1 tablet by ORAL route once daily take with food; 20 tablet; Refills: 0, snw Product Selection Permitted Signatures: Dispatcher [employer] EDPhil Mccloud MD MD cha Waters, Shelly, CONTINUOUS DRYOUT OPERATOR HELPER-C CONTINUOUS DRYOUT OPERATOR HELPER-[place] Anneliese Rios, RN RN 3
--- NOTE | 2022-10-21 22:32 | ER ---
Nurse's Notes [facility] Name: Cassia Garcia Age: 71 yrs Sex: Female : 1950 Arrival Date: 10/21/2022 Time: 20:55 Bed 12 Private MD: Diagnosis: Osteoarthritis of knee, unspecified;Effusion of joint;Fall on same level from slipping, tripping and stumbling with subsequent striking against object Presentation: 10/21 21:19 Chief complaint: Patient states: right knee pain started 3-4 weeks ago. Coronavirus 3 screen: Vaccine status: Patient reports receiving the 2nd dose of the covid vaccine. Ebola Screen: No symptoms or risks identified at this time. Initial Sepsis Screen: Does the patient meet any 2 criteria? No. Patient's initial sepsis screen is negative. Does the patient have a suspected source of infection? No. Patient's initial sepsis screen is negative. Risk Assessment: Do you want to hurt yourself or someone else? Patient reports no desire to harm self or others. Onset of symptoms was October 21, 2022. 21:19 Acuity: SAPPHIRE 3 eh3 21:19 Method Of Arrival: Wheelchair [facility] Triage Assessment: 21:20 General: Appears distressed, uncomfortable, Behavior is cooperative, appropriate for [facility] age. Pain: Complains of pain in right knee Pain does not radiate. Pain currently is 10 out of 10 on a pain scale. EENT: No signs and/or symptoms were reported regarding the EENT system. Neuro: Level of Consciousness is awake, alert, obeys commands, Oriented to person, place, time, situation. Cardiovascular: Capillary refill < 3 seconds Patient's skin is warm and dry. Respiratory: Airway is patent Respiratory effort is even, labored, Respiratory pattern is regular, symmetrical. GI: No signs and/or symptoms were reported involving the gastrointestinal system. Abdomen is round non-distended. : No signs and/or symptoms were reported regarding the genitourinary system. Derm: No signs and/or symptoms reported regarding the dermatologic system. Skin is pink, warm \T\ dry. Musculoskeletal: Circulation, motion, and sensation intact. Range of motion: limited in right knee Reports intermittent twitching of right toes. Historical: - Allergies: 21:20 paper tape; eh3 - Home Meds: 21:20 aripiprazole Oral [Active]; benzonatate Oral [Active]; Buspirone Oral [Active]; 3 duloxetine Oral [Active]; levothyroxine oral [Active]; montelukast Oral [Active]; Nystatin Vaginal [Active]; ropinirole Oral [Active]; Trazodone Oral [Active]; - PMHx: 21:20 Anxiety; Bipolar disorder; COPD; Schizophrenia; 3 - PSHx: 21:20 section; Cholecystectomy; hysterectomy; 3 - Immunization history:: Adult Immunizations up to date. - Social history:: Smoking status: Patient denies any tobacco usage or history of. Patient uses alcohol, occasionally. Screenin:23 [facility] ED Fall Risk Assessment (Adult) History of falling in the last 3 months, [facility] including since admission No falls in past 3 months (0 pts) Confusion or Disorientation No (0 pts) Intoxicated or Sedated No (0 pts) Impaired Gait Yes (1 pt) Mobility Assist Device Used Yes (1 pt) Altered Elimination No (0 pt) Score/Fall Risk Level 0 - 2 = Low Risk. Abuse screen: Denies threats or abuse. Denies injuries from another. Nutritional screening: No deficits noted. Tuberculosis screening: No symptoms or risk factors identified. Assessment: 21:23 Reassessment: No changes from previously documented assessment. See triage assessment. [facility] 22:30 Reassessment: Patient appears in no apparent distress at this time. Patient and/or [facility] family updated on plan of care and expected duration. Pain level reassessed. Vital Signs: 21:19 BP 151 / 85; Pulse 91; Resp 18; Temp 98.6(O); Pulse Ox 98% 2 lpm ; Weight 137.44 kg; 3 Height 5 ft. 1 in. (154.94 cm); Pain 10/10; 22:30 BP 141 / 78; Pulse 83; Resp 18; Pulse Ox 97% on 2 lpm NC; 3 23:03 BP 143 / 85; Pulse 74; Resp 18; Pulse Ox 97% on 2 lpm NC; 3 21:19 Body Mass Index 57.25 (137.44 kg, 154.94 cm) [facility] ED Course: 20:55 Patient arrived in ED. jj6 21:08 Julita York FNP-C is PHCP. snw 21:08 Phil Carey MD is Attending Physician. snw 21:10 Anneliese Rios, RN is Primary Nurse. eh3 21:20 Triage completed. eh3 21:20 Arm band placed on. eh3 21:23 Patient has correct armband on for positive identification. Bed in low position. Call eh3 light in reach. Side rails up X2. Adult w/ patient. Pulse ox on. NIBP on. Door closed. Noise minimized. 22:24 US Extremity Venous Unilateral Ltd In Process Unspecified. EDMS 22:25 Knee Right 3 View XRAY In Process Unspecified. EDMS 23:29 No provider procedures requiring assistance completed. Patient did not have IV access eh3 during this emergency room visit. Administered Medications: 22:44 Drug: [place] (HYDROcodone-acetaminophen) 5 mg-325 mg 1 tabs Route: PO; eh3 23:46 Follow up: Response: Medication administered at discharge. eh3 23:10 Drug: [place] (HYDROcodone-acetaminophen) 5 mg-325 mg 1 tabs Route: PO; eh3 23:46 Follow up: Response: Medication administered at discharge. eh3 Medication: 23:29 VIS not applicable for this client. eh3 Outcome: 22:31 Discharge ordered by MD. snw 23:29 Discharged to home via wheelchair, with family. eh3 23:29 Condition: stable 23:29 Discharge instructions given to patient, family, Instructed on discharge instructions, follow up and referral plans. medication usage, Demonstrated understanding of instructions, follow-up care, medications, Prescriptions given X 1. 23:30 Patient left the ED. eh3 Signatures: Dispatcher [employer] EDNH Julita York, DAYLIGHT DRILLER-C DAYLIGHT DRILLER-CsnJuana Henley [id number] Anneliese Rios, RN RN eh3 Corrections: (The following items were deleted from the chart) 21:24 21:19 Method Of Arrival: Ambulatory eh3 eh3 22:44 22:23 Reassessment: Patient appears in no apparent distress at this time. Patient eh3 and/or family updated on plan of care and expected duration. Pain level reassessed. Patient is alert, oriented x 3, equal unlabored respirations, skin warm/dry/pink. eh3
[2022-10-21] MEDS ORDERED: HYDROCODONE/APAP 10/325 TAB ONE (22:40)
[2022-10-21 23:51] VITALS: O2SAT 97
[2022-10-21 23:53] VITALS: TEMP 98.6
[2022-10-21 23:54] VITALS: BP 143/85
== END 2022-10-21 23:30 | disposition home or self-care (01) ==
LOC: ER 20:55
DX: M17.11 Unilateral primary osteoarthritis, right knee (principal); M25.461 Effusion, right knee; W01.10XA Fall on same level from slipping, tripping and stumbling with subsequent striking against unspecified object, initial encounter; J44.9 Chronic obstructive pulmonary disease, unspecified; F20.9 Schizophrenia, unspecified; Z91.048 Other nonmedicinal substance allergy status
CPT/HCPCS: 93971; 99284

== ENCOUNTER 2022-11-21 12:53 | Emergency (ER) | payer OTHER ==
--- OUTSIDE RECORDS SUMMARY | 2022-11-21 12:57 | XMS REPORT | Continuity of Care Document ---
:1950 Author Organization [facility] t Address [facility] [address] [place] [address] Care Team Providers Name Role Phone Ck [...] [facility] This patient has no known medications. Procedures This patient has no known procedures. Encounters Start End Encounter Admission Attending Care Care Encounter Source Date/Time Date/Time Type Type Clinicians Facility Department ID 2020-07-28 Inpatient R ENEDINA Balbuena [facility] [id number] [facility] Ck [id number] [facility] 2019-12-[address] [id number] Ck -[id number] [facility] 2022-04-27 2022-04-27 Outpatient RANDY [place]ARZON [place] [address] [place] 10:32:00 10:32:00 H 0726 da [facility] 2019-12-20 2019-12-20 [id number] 14:00:00 14:00:00 Ck [facility] 2019-12-13 2019-12-13 Outpatient Esha [facility] [id number] 11:00:00 11:00:00 [id number] Rick Rocha 2019-12-10 2019-12-10 Outpatient ENEDINA Balbuena [facility] [id number] 00:00:00 00:00:00 Ck -[id number] [facility] Results Test Description Test Time Test Comments [...] Hematology (test code = PCOMMENT) Appears Adequate [id number] 14:37:00 Test Item Value Reference Range Interpretation [...] code 8.9 mg/dL 7.8-10.44 N = CA) [id number] 13:03:00 Test Item Value Reference Range Interpretation [...] UABLD) Small Negative A Urine Source: Urine [id number] 13:03:00 Test Item Value Reference Range Interpretation [...] LPF <2+ UAMCS) Urine Source: Urine VoidedCulture, [id number] 15:24:00 Test Item Value Reference Range Interpretation Comments Culture, Blood (test code = BC) NG5 Culture, [id number] 15:24:00 Test Item Value Reference Range Interpretation Comments Culture, Blood (test code = BC) NG5 [id number] 06:54:00 Test Item Value Reference Range Interpretation [...] code 9.5 mg/dL 7.8-10.44 N = CA) [id number] 06:35:00 Test Item Value Reference Range Interpretation [...] code = BASO#) 0.0 thou/uL 0.0-0.2 N [id number] 07:40:00 Test Item Value Reference Range Interpretation [...] code 8.9 mg/dL 7.8-10.44 N = CA) [id number] 07:19:00 Test Item Value Reference Range Interpretation [...] thou/uL 0.0-0.2 N Chemistry - BNP, HgbA1c, [id number] 19:31:00 Test Item Value Reference Range Interpretation Comments Chemistry - BNP, HgbA1c, PTHi 32.8 pg/mL 0-100 N (test code = BNP) [id number] 19:30:00 Test Item Value Reference Range Interpretation Comments Chemistry (test Less than < 0.028 code = TROPI-R) 0.010 ng/mL Reference Ra nge 0.00 - 0.028 n g/mL Negative 0.029 - 0.29 ng/mL Indetermi hesham Greater or Equa l to 0.3 ng/mL Stron gly suggests AR [id number] 19:28:00 Test Item Value Reference Range Interpretation [...] U/L 8-55 N = ALT) Chemistry - [id number] 19:24:00 Test Item Value Reference Range Interpretation Comments Chemistry - Lactate (test code = 0.9 mmol/L 0.5-2.2 N LACTSEP-T) [id number] 19:14:00 Test Item Value Reference Range Interpretation [...] Imaging Center Pt Name: JEN DURON [address] [facility]. Phys: [place] [address] : 1950 Age: 69 SEX:F [phone] Exam Date: 12/27/19 Status: REG CLI Acct: [id number]: BICMAMMO Pt Unit #: [id number] Report #: [id number] CC: Ck Balbuena MD MAMMOGRAPHY REPORT Order# Category/Exam [id number] MMO/MAMMO Unilat Diag DDI LT+ALIREZA ([id number]): . Results 2 Left Breast MAMMO Unilat [...] compared to prior imaging studies performed at [facility] on 06/07/2019, 09/12/2019 and 12/27/2019. This study [...] of clinically suspicious mass is present. 2. Approxim ately 10% to 15% of breast cancers are not detected by mammography. 3. Adenosis and dense breasts may obscure an underlying neoplasm. Reported by: BRYAN CARTER MD Electonically Signed: [id number] By: Bryan Carter MD Electronically Signed Date/Time: 12/27/19 1055 Technologist: JASS Dictated Date/Time: 12/27/19 Transcribed Date/Time: 12/27/19MAMMO Unilat Diag DDI LT+ALIREZA [facility] Pt Name: JEN DURON [address] [facility]. Phys: [place] [address] : 1950 Age: 69 SEX:F [phone] Exam Date: 12/27/19 Status: REG CLI Acct: [id number]: BICMAMMO Pt Unit #: [id number] Report #: [id number] CC: Ck Balbuena MD MAMMOGRAPHY REPORT Order# Category/Exam [id number] MMO/MAMMO Unilat Diag DDI LT+ALIREZA ([id number]): . Results 2 Left Breast MAMMO Unilat [...] been compared to priorimaging studies performed at [facility] on 06/07/2019, 09/12/2019 and 12/27/2019. This study [...] Reported by: BRYAN CARTER MD Electonically Signed: [id number] By: Bryan Carter MD Electronically Signed Date/Time: 12/27/19 1055 Technologist: [email or web address] Dictated Date/Time: 12/27/19 Transcribed Date/Time: 12/27/19 Breast [facility] Pt Name: JEN DURON [address] [facility]. Phys: [place] [address] : 1950 Age: 69 SEX:F [phone] Exam Date: 12/27/19 Status: REG CLI Acct: [id number]: ASHVINFARHANADEYANIRA Pt Unit #: [id number] Report #: [id number] CC: Ck Balbuena MD ULTRASOUND REPORT Order # Category/Exam [id number] ULT/US Breast Limited Lt ([id number]): . Results 2 LEFT BREAST ULTRASOUND: Date: [...] DURONJENG[address] Dr[address] Phys: [place] [address] : 1950 Age: 68 SEX:F [phone] Exam Date: 10/18/19 Status: DEP ER Acct: [id number] Loc: MARIA E Pt Unit #: [id number] Report #: [id number] CC: MELLO GRIGSBY MD CAT SCAN REPORT Order # Category/Exam [id number] CT/CT Neck Soft Tissue W Con ([id number]): . Results POSTCONTRAST SOFT TISSUE NECK CT [...] 10/18/19 1521 Transcribed Date/Time:XR Chest 1 View [facility] Name: JEN DURON [address] Phys: [place] [address] : 1950 Age: 68 SEX:F [phone] Exam Date: 10/18/19 Status: DEP ER Acct: [id number] Loc: MARIA E Pt Unit #: [id number] Report #: [id number] CC: MELLO GRIGSBY MD IMAGING SERVICES REPORT Order # Category/Exam [id number] RAD/XR Chest 1 View Portable ([id number]): . Results PORTABLE CHEST: 10/18/19 Comparison is [...] Limited LtDiagnostic Imaging Center Pt Name: EJN DRUON [address] [facility]. Phys: [place] [address] : 1950 Age: 68 SEX:F [phone] Exam Date: 09/12/19 Status: REG CLI Acct: [id number]: BICULT Pt Unit #: [id number] Report #: [id number] CC: Ck Balbuena MD ULTRASOUND REPORT Order # Category/Exam [id number] ULT/US Breast Limited Lt ([id number]): . Results 3 LEFT BREAST DIAGNOSTIC ULTRASOUND: [...] Blue MD Electronically Signed Date/Time: 09/12/19 1312 Technologist:ORI Dictated Date/Time: 09/12/19 1028 Transcribed Date/Time: 09/12/19 1206MAMMO Bilat Diag DDI+TOMODiagnostic Imaging Center Pt Name: JEN DURON [address] [place] [address]. Phys: [place] [address] : 1950 Age: 68 SEX:F [phone] Exam Date: 06/07/19 Status: REG CLI Acct: [id number]: BICMAMMO Pt Unit #: [id number] Report #: [id number] CC: Ck Balbuena MD MAMMOGRAPHY REPORT Order# Category/Exam [id number] MMO/MAMMO Bilat Diag DDI+ALIREZA ([id number]): . Results 3 Bilateral MAMMO Bilat Diag [...] been compared to prior imaging studies performedat [facility] on 06/07/2019, and at [facility] on 09/29/2018. MAMMOGRAM FINDINGS:The breasts are heterogeneously [...] benign finding - short interval follow-up suggested. [facility] will notify the patient of the need for additional imaging services. MAMMOGRAPHY NOTE: 1. A negative mammogram report should not delay a biopsy if a dominant of clinically suspicious mass is present. 2. Approximately 10% to 15% of breast cancers are not detected by mammography. 3. Adenosis and dense breasts may obscure an underlying neoplasm. Reported by: JAVY MULLINS MD Electonically Signed: [id number] Reported By: Javy Mullins MD Electronically Signed Date/Time: 06/07/19 0916 Technologist: JENNIFER Dictated Date/Time: 06/07/19 Transcribed Date/Time: 06/07/19US Breast Limited Lt [facility] Pt Name: DURON,JEN G [address] [place] [address]. Phys: [place] [address] : 1950 Age: 68 SEX:F [phone] Exam Date: 06/07/19 Status: REG CLI Acct: [id number]: BICFARHANAMMO Pt Unit #: [id number] Report #: [id number] CC: Ck Balbuena MD ULTRASOUND REPORT Order # Category/Exam [id number] ULT/US Breast Limited Lt ([id number]): . Results 3 DIAGNOSTIC LEFT BREAST ULTRASOUND: [...] complex cyst of the grouping of cysts wit hin the site of patient's post-traumatic left breast abnormality. Findings and recommendations were discussed with the patient, who understands and is amenable to the follow-up plan. POS: OFF Reported By: Javy Mullins MD Electronically Signed Date/Time: 06/07/19 1123 Technologist: [email or web address] Date/Time: 06/07/19 0922 Transcribed Date/Time: 06/07/19 0959MAMMO Bilat Diag DDI+TOM[facility]iagnostic Imaging Center Pt Name: JEN DURON [address] [facility]. Phys: [place] [address] : 1950 Age: 68 SEX:F [phone] Exam Date: 06/07/19 Status: DEP CLI Acct: [id number]: DAXA Pt Unit #: [id number] Report #: [id number] CC: Ck Balbuena MD MAMMOGRAPHY REPORT Order# Category/Exam [id number] MMO/MAMMO Bilat Diag DDI+ALIREZA ([id number]): . Results 3 Bilateral MAMMO Bilat Diag [...] been compared to prior imaging studies performedat [facility] on 06/07/2019, and at [facility] on 09/29/2018. MAMMOGRAM FINDINGS:The breasts are heterogeneously [...] benign finding - short interval follow-up suggested. [facility] will notify the patient of the need for additional imaging services.MAMMOGRAPHY NOTE: 1. A negative mammogram report should not delay a biopsy if a dominant of clinically suspicious mass is present. 2. Approximately 10% to 15% of breast cancers are not detected by mammo graphy. 3. Adenosis and dense breasts may obscure an underlying neoplasm. Reported by: JAVY MULLINS MD Electonically Signed: [id number] Reported By: Javy Mullins MD Electronically Signed Date/Time: 06/07/19 0916 Technologist: JENNIFER Dictated Date/Time: 06/07/19 Transcribed Date/Time: 06/07/19XR Chest Pa Lat [facility] Pt Name: JEN DURON Dr. Phys: [place] [address] : 1950 Age: 68 SEX:F [phone] Exam Date: 02/17/19 Status: DEP ER Acct: [id number] Loc: MARIA E Pt Unit #: [id number] Report #: [id number] CC: ESTEPHANIE MANRIQUE MD IMAGING SERVICES REPORT Order # Category/Exam [id number] RAD/XR Chest Pa Lat STANDARD ([id number]): . Results T CHEST TWO VIEWS: 02/17/19 [...] FAITH CAMPBELL MD Electronically Signed Date/Time: 02/17/19 1898 Technologist: ROBSON Dictated Date/Time: 02/17/192299 Transcribed Date/Time: 02/17/192303
[2022-11-21] MEDS ORDERED: HYDROCODONE/APAP 10/325 TAB ONE (13:35)
--- NOTE | 2022-11-21 14:33 | RAD REPORT ---
EXAM DESCRIPTION: RAD - Elbow Right 3 View - 11/21/2022 1:51 pm CLINICAL HISTORY: Elbow pain FINDINGS: No fracture or dislocation is seen. No bone or joint abnormality is displayed
--- NOTE | 2022-11-21 14:33 | RAD REPORT ---
EXAM DESCRIPTION: CT - Chest Abd Pelvis Wo Con - 11/21/2022 2:20 pm CLINICAL HISTORY: Fall with chest and abdominal pain COMPARISON: 2019 CT chest TECHNIQUE: Computed axial tomography of the chest, abdomen and pelvis was obtained. Oral contrast wa s given. IV contrast was not requested. All CT scans are performed using dose optimization technique as appropriate and may include automated exposure control or mA/KV adjustment according to patient size. FINDINGS: The evaluation of mediastinum, apryl, vessels and solid organs is limited secondary to the lack of IV contrast administration A lung contusion is not present. A pleural effusion is not present. A pericardial effusion is not seen. A mediastinal hematoma is not seen. Old rib fractures The liver, spleen, pancreas, adrenals, kidneys and bladder do not demonstrate a traumatic injury. There is no evidence of diverticulitis. Atherosclerosis. IMPRESSION: No acute traumatic injury involving the chest, abdomen or pelvis is seen
--- NOTE | 2022-11-21 14:34 | RAD REPORT ---
EXAM DESCRIPTION: RAD - Knee Right 3 View - 11/21/2022 1:49 pm CLINICAL HISTORY: Right knee pain FINDINGS: No fracture or dislocation is seen. Soft tissue edema Mild osteoarthritis
--- NOTE | 2022-11-21 14:34 | RAD REPORT ---
EXAM DESCRIPTION: RAD - Shoulder Right 2 View - 11/21/2022 1:49 pm CLINICAL HISTORY: Right shoulder pain FINDINGS: No fracture or dislocation is seen. Mild to moderate osteoarthritis AC joint
--- NOTE | 2022-11-21 16:00 | EDPHYS ---
Physician Documentation [facility] Name: Cassia Garcia Age: 71 yrs Sex: Female : 1950 Arrival Date: 11/21/2022 Time: 13:18 Bed 2 Private MD: ED Physician Frank García HPI: 11/21 17:41 This 71 yrs old Female presents to ER via EMS with complaints of Fall Injury, Shoulder kdr Injury, Knee Injury. 17:42 Recently the patient's had multiple falls secondary to arthritic knees he gives out kdr easily. Today she fell from standing landing on her right side and injuring her right upper arm and right knee. She denies hitting her head or loss of consciousness. EMS did not report any obvious deformity. She was slightly tachycardic (117) otherwise vital signs were stable and her fingerstick was 124 . Onset: The symptoms/episode began/occurred suddenly, just prior to arrival. Severity of symptoms: At their worst the symptoms were mild moderate just prior to arrival, in the emergency department the symptoms are unchanged. The patient has experienced similar episodes in the past, multiple times. The patient has not recently seen a physician. Historical: - Allergies: 13:22 paper tape; ll1 - PMHx: 13:22 COPD; Schizophrenia; Bipolar disorder; Anxiety; ll1 - PSHx: 13:22 section; Cholecystectomy; hysterectomy; ll1 - Immunization history:: Client reports receiving the 2nd dose of the Covid vaccine. - Social history:: Smoking status: Patient/guardian denies using tobacco. - Immunization history: Last tetanus immunization: - up to date. ROS: 17:42 Constitutional: Negative for fever, chills, and weight loss, Eyes: Negative for injury, kdr pain, redness, and discharge, ENT: Negative for injury, pain, and discharge, Neck: Negative for injury, pain, and swelling, Cardiovascular: Negative for chest pain, palpitations, and edema, Respiratory: Negative for shortness of breath, cough, wheezing, and pleuritic chest pain, Abdomen/GI: Negative for abdominal pain, nausea, vomiting, diarrhea, and constipation, Back: Negative for injury and pain, : Negative for injury, bleeding, discharge, and swelling, Skin: Negative for injury, rash, and discoloration, Neuro: Negative for headache, weakness, numbness, tingling, and seizure activity. Psych: Negative for depression, anxiety, suicide ideation, homicidal ideation, and hallucinations, Allergy/Immunology: Negative for hives, rash, and allergies, Endocrine: Negative for neck swelling, polydipsia, polyuria, polyphagia, and marked weight changes, Hematologic/Lymphatic: Negative for swollen nodes, abnormal bleeding, and unusual bruising. 17:42 MS/extremity: Positive for injury or acute deformity, decreased range of motion, pain, tenderness, of the anterior aspect of right shoulder, right bicep, right antecubital area, posterior aspect of right shoulder, right tricep, right elbow and right knee. Exam: 17:42 Constitutional: This is a well developed, well nourished patient who is awake, alert, kdr and in no acute distress. Head/Face: Normocephalic, atraumatic. Eyes: Pupils equal round and reactive to light, extra-ocular motions intact. Lids and lashes normal. Conjunctiva and sclera are non-icteric and not injected. Cornea within normal limits. Periorbital areas with no swelling, redness, or edema. Neck: Trachea midline, no thyromegaly or masses palpated, and no cervical lymphadenopathy. Supple, full range of motion without nuchal rigidity, or vertebral point tenderness. No Meningismus. Chest/axilla: Normal chest wall appearance and motion. Nontender with no deformity. No lesions are appreciated. Cardiovascular: Regular rate and rhythm with a normal S1 and S2. No gallops, murmurs, or rubs. Normal PMI, no JVD. No pulse deficits. Respiratory: Lungs have equal breath sounds bilaterally, clear to auscultation and percussion. No rales, rhonchi or wheezes noted. No increased work of breathing, no retractions or nasal flaring. Abdomen/GI: Soft, non-tender, with normal bowel sounds. No distension or tympany. No guarding or rebound. No evidence of tenderness throughout. Back: No spinal tenderness. No costovertebral tenderness. Full range of motion. Skin: Warm, dry with normal turgor. Normal color with no rashes, no lesions, and no evidence of cellulitis. Neuro: Awake and alert, GCS 15, oriented to person, place, time, and situation. Cranial nerves II-XII grossly intact. Motor strength 5/5 in all extremities. Sensory grossly intact. Cerebellar exam normal. Normal gait. Psych: Awake, alert, with orientation to person, place and time. Behavior, mood, and affect are within normal limits. 17:42 Musculoskeletal/extremity: Extremities: ROM: limited active range of motion, limited passive range of motion, in the right arm and right knee, Circulation is intact in all extremities. Sensation intact. Vital Signs: 13:19 BP 155 / 95; Pulse 115; Resp 22; Temp 98.7(TE); Pulse Ox 90% on 3 lpm NC; Weight 137.44 ll1 kg; Height 5 ft. 1 in. (154.94 cm); Pain 7/10; 14:48 BP 149 / 107; Pulse 106; Resp 22; Pulse Ox 97% on 3 lpm NC; ll1 16:19 BP 145 / 95; Pulse 103; Resp 22; Pulse Ox 94% on 3 lpm NC; ll1 13:19 Body Mass Index 57.25 (137.44 kg, 154.94 cm) ll1 Haines Coma Score: 16:16 Eye Response: spontaneous(4). Verbal Response: oriented(5). Motor Response: obeys ll1 commands(6). Total: 15. Trauma Score (Adult): 16:16 Eye Response: spontaneous(1); Verbal Response: oriented(1); Motor Response: obeys ll1 commands(2); Systolic BP: > 89 mm Hg(4); Respiratory Rate: 10 to 29 per min(4); Milvia Score: 15; Trauma Score: 12 MDM: 16:00 Patient medically screened. kdr 17:42 Data reviewed: vital signs, nurses notes, lab test result(s), radiologic studies. I kdr considered the following discharge prescriptions or medication management in the emergency department Medications were administered in the Emergency Department. See DEC. 11/21 13:27 Order name: Shoulder Right (2 View) XRAY kdr 11/21 13:27 Order name: Knee Right 3 View XRAY kdr 11/21 13:27 Order name: Elbow Right 3 View XRAY kdr 11/21 13:27 Order name: CT Chest Abdomen Pelvis W/O Contrast kdr 11/21 14:34 Order name: CT; Complete Time: 14:47 EDMS 11/21 14:34 Order name: RAD; Complete Time: 14:47 EDMS 11/21 14:34 Order name: RAD; Complete Time: 14:47 EDMS 11/21 14:34 Order name: RAD; Complete Time: 14:47 EDMS Administered Medications: 13:33 Drug: [place] (HYDROcodone-acetaminophen) 10 mg-325 mg 1 tabs Route: PO; hb 16:19 Follow up: Response: No adverse reaction; Pain is decreased; RASS: Alert and Calm (0) ll1 Disposition Summary: 11/21/22 16:00 Discharge Ordered Location: Home kdr Problem: new kdr Symptoms: have improved kdr Condition: Stable kdr Diagnosis - Fall from standing kdr - Contusion (right elbow right knee) kdr Followup: kdr - With: Private Physician - When: 2 - 3 days - Reason: If symptoms return, Further diagnostic work-up, Recheck today's complaints, Continuance of care, Re-evaluation by your physician Discharge Instructions: - Discharge Summary Sheet kdr - Contusion, Rkmz-na-Ngqe kdr - Shoulder Sprain kdr - Elbow Sprain kdr Forms: - Medication Reconciliation Form kdr - Thank You Letter kdr - Prescription Opioid Use kdr Prescriptions: - Ibuprofen 600 mg Oral Tablet - take 1 tablet by ORAL route every 6 hours As needed take with food; 30 tablet; kdr Refills: 0, Product Selection Permitted - Tramadol 50 mg Oral Tablet - take 1 tablet by ORAL route every 8 hours as needed; 12 tablet; Refills: 0, kdr Product Selection Permitted Signatures: Dispatcher [employer] EDMS Frank García MD MD kdr Bouchra Jaramillo, PURVI RN Mariela Hillman RN RN ll1
--- NOTE | 2022-11-21 16:00 | ER ---
Nurse's Notes [facility] Name: Cassia Garcia Age: 71 yrs Sex: Female : 1950 Arrival Date: 11/21/2022 Time: 13:18 Bed 2 Private MD: Diagnosis: Fall from standing;Contusion (right elbow right knee) Presentation: 11/21 13:19 Chief complaint: Patient states: Multiple falls recently, has bad arthritic knees that ll1 give out easily. Reports R shoulder pain and B knee pains from the fall today. No LOC or head injury. No obvious deformity. EMS states: HR 117, otherwise VSS. O2 3L NC, fingerstick 124. Coronavirus screen: Vaccine status: Patient reports receiving the 2nd dose of the covid vaccine. Client denies travel out of the [place] in the last 14 days. difficulty breathing, shortness of breath, Client presents with at least one sign or symptom that may indicate coronavirus-19. Standard/surgical mask placed on the client. Ebola Screen: Patient denies travel to an Ebola-affected area in the 21 days before illness onset. Initial Sepsis Screen: Does the patient meet any 2 criteria? HR > 90 bpm. No. Patient's initial sepsis screen is negative. Does the patient have a suspected source of infection? No. Patient's initial sepsis screen is negative. Risk Assessment: Do you want to hurt yourself or someone else? Patient reports no desire to harm self or others. Onset of symptoms was November 21, 2022. 13:19 Method Of Arrival: EMS ll1 13:19 Acuity: SAPPHIRE 3 1 16:17 Care prior to arrival: None. Mechanism of Injury: Fall. Trauma event details: Injury ll1 occurred in the [facility]. Triage Assessment: 13:22 General: Appears uncomfortable, Behavior is calm, cooperative, appropriate for age. ll1 Pain: Complains of pain in R shoulder Quality of pain is described as aching, throbbing. Neuro: No deficits noted. Cardiovascular: No deficits noted. Respiratory: Reports shortness of breath labored breathing. Musculoskeletal: Reports pain in R shoulder, B knees. Trauma Activation: Not Applicable Physician: ED Physician; Name: ; Notified At: ; Arrived At: Physician: General Surgeon; Name: ; Notified At: ; Arrived At: Physician: Radiology; Name: ; Notified At: ; Arrived At: Physician: Respiratory; Name: ; Notified At: ; Arrived At: Physician: Lab; Name: ; Notified At: ; Arrived At: Historical: - Allergies: 13:22 paper tape; ll1 - PMHx: 13:22 COPD; Schizophrenia; Bipolar disorder; Anxiety; ll1 - PSHx: 13:22 section; Cholecystectomy; hysterectomy; ll1 - Immunization history:: Client reports receiving the 2nd dose of the Covid vaccine. - Social history:: Smoking status: Patient/guardian denies using tobacco. - Immunization history: Last tetanus immunization: - up to date. Screenin:16 [facility] ED Fall Risk Assessment (Adult) Impaired Gait Yes (1 pt) Mobility Assist ll1 Device Used Yes (1 pt) Score/Fall Risk Level 0 - 2 = Low Risk Oriented to surroundings, Maintained a safe environment, Educated pt \T\ family on fall prevention, incl call for assistance when getting out of bed, Hourly rounding (assess needs \T\ fall precautionary measures) done. Abuse screen: Denies threats or abuse. Nutritional screening: No deficits noted. Tuberculosis screening: No symptoms or risk factors identified. Primary Survey: 16:16 NO uncontrolled hemorrhage observed. A: The client is awake and alert. The airway is ll1 patent. Breathing/Chest: Spontaneous respiratory effort, equal unlabored respirations, breath sounds clear bilaterally, regular pattern, symmetrical chest rise and fall. Circulation: No external hemorrhage present. Regular and strong central pulse, skin warm/dry/normal color. Disability Exposure/Environment: There is no evidence of uncontrolled external bleeding. 16:17 Reassessment Alertness and Airway: Awake and alert. The airway is patent. Breathing: ll1 Spontaneous respiratory effort, equal unlabored respirations, breath sounds clear bilaterally, regular pattern with symmetrical chest rise and fall. Circulation: No external hemorrhage noted. Regular and strong central pulse, skin warm/dry/normal color. Disability: Pupils. Assessment: 14:24 Reassessment: No changes from previously documented assessment. Patient and/or family ll1 updated on plan of care and expected duration. Pain level reassessed. Back from CT. 15:16 Reassessment: No changes from previously documented assessment. Patient and/or family ll1 updated on plan of care and expected duration. Pain level reassessed. 16:16 Reassessment: No changes from previously documented assessment. Patient and/or family ll1 updated on plan of care and expected duration. Pain level reassessed. Patient is alert, oriented x 3, equal unlabored respirations, skin warm/dry/pink. Vital Signs: 13:19 BP 155 / 95; Pulse 115; Resp 22; Temp 98.7(TE); Pulse Ox 90% on 3 lpm NC; Weight 137.44 ll1 kg; Height 5 ft. 1 in. (154.94 cm); Pain 7/10; 14:48 BP 149 / 107; Pulse 106; Resp 22; Pulse Ox 97% on 3 lpm NC; ll1 16:19 BP 145 / 95; Pulse 103; Resp 22; Pulse Ox 94% on 3 lpm NC; ll1 13:19 Body Mass Index 57.25 (137.44 kg, 154.94 cm) ll1 Jasper Coma Score: 16:16 Eye Response: spontaneous(4). Verbal Response: oriented(5). Motor Response: obeys ll1 commands(6). Total: 15. Trauma Score (Adult): 16:16 Eye Response: spontaneous(1); Verbal Response: oriented(1); Motor Response: obeys ll1 commands(2); Systolic BP: > 89 mm Hg(4); Respiratory Rate: 10 to 29 per min(4); Jasper Score: 15; Trauma Score: 12 ED Course: 13:18 Patient arrived in ED. ll1 13:22 Frank García MD is Attending Physician. kdr 13:22 Triage completed. ll1 13:23 Arm band placed on Patient placed in an exam room, on a stretcher. ll1 14:24 Mariela Story RN is Primary Nurse. ll1 16:16 No provider procedures requiring assistance completed. Patient did not have IV access ll1 during this emergency room visit. 16:18 Patient has correct armband on for positive identification. Bed in low position. Call ll1 light in reach. Client placed on continuous cardiac and pulse oximetry monitoring. NIBP monitoring applied. 16:18 Oxygen administration via nasal cannula \T\ 3L/min. ll1 16:18 Thermoregulation: warm blanket given to patient. ll1 Administered Medications: 13:33 Drug: [place] (HYDROcodone-acetaminophen) 10 mg-325 mg 1 tabs Route: PO; hb 16:19 Follow up: Response: No adverse reaction; Pain is decreased; RASS: Alert and Calm (0) ll1 Medication: 16:18 VIS not applicable for this client. ll1 Intake: 16:18 PO: 100ml; Total: 100ml. ll1 Output: 16:18 Urine: 300ml; Total: 300ml. ll1 Outcome: 16:00 Discharge ordered by . kdr 16:17 Discharged to home via wheelchair. ll1 16:17 Condition: stable 16:17 Discharge instructions given to patient, Instructed on discharge instructions, follow up and referral plans. medication usage, Demonstrated understanding of instructions, follow-up care, medications, Prescriptions given X 2. 16:18 Patient's length of stay was not longer than 2 hours. ll1 16:21 Patient left the ED. ll1 Signatures: Frank Garcaí MD MD [facility] Bouchra Jaramillo, RN RN Mariela Story RN RN 1
[2022-11-21 16:25] VITALS: TEMP 98.7
[2022-11-21 16:27] VITALS: BP 145/95; O2SAT 94
== END 2022-11-21 16:21 | disposition home or self-care (01) ==
LOC: ER 12:53
DX: S50.01XA Contusion of right elbow, initial encounter (principal); S80.01XA Contusion of right knee, initial encounter; W18.30XA Fall on same level, unspecified, initial encounter; J44.9 Chronic obstructive pulmonary disease, unspecified; F20.9 Schizophrenia, unspecified
CPT/HCPCS: 71250; 74176; 99284

== ENCOUNTER 2022-11-21 19:44 | Inpatient (IN) | payer OTHER ==
--- OUTSIDE RECORDS SUMMARY | 2022-11-21 19:51 | XMS REPORT | Continuity of Care Document ---
:1950 Author Organization [facility] t Address [address] [place] [address] [address] [place] [address] Care Team Providers Name Role Phone Ck [...] Department ID 2020-07-28 Inpatient R ENEDINA Balbuena [facility] [id number] [facility] 10:30:00 Ck [id number] [facility] 2019-12-[address] [id number] 10:[facility] Ck -[id number] [facility] 2022-04-27 2022-04-27 Outpatient RADNY [place] [id number] [place] 10:32:00 10:32:00 H 0726 da [facility] Outre h Program 2019-12-20 2019-12-20 Outpatient ENEDINA Balbuena [facility] [id number] 14:00:00 14:00:00 Ck Rick stringer Mello Mancuso 2019-12-13 2019-12-13 Outpatient Esha, [facility] [id number] 11:00:00 11:00:00 Ck Rick Rocha 2019-12-10 2019-12-10 Outpatient Esha, ENEDINA [facility] [id number] 00:00:00 00:00:00 Ck [id number] [facility] [place] Results Test Description Test Time Test [...] Hematology (test code = PCOMMENT) Appears Adequate [id number] 14:37:00 Test Item Value Reference Range Interpretation [...] code 8.9 mg/dL 7.8-10.44 N = CA) [id number] 13:03:00 Test Item Value Reference Range Interpretation [...] UABLD) Small Negative A Urine Source: Urine AuvwisAahcrtlniv9457-10-11 13:03:00 Test Item Value Reference Range Interpretation [...] LPF <2+ UAMCS) Urine Source: Urine VoidedCulture, [id number] 15:24:00 Test Item Value Reference Range Interpretation Comments Culture, Blood (test code = BC) NG5 Culture, [id number] 15:24:00 Test Item Value Reference Range Interpretation Comments Culture, Blood (test code = BC) NG5 [id number] 06:54:00 Test Item Value Reference Range Interpretation [...] code 9.5 mg/dL 7.8-10.44 N = CA) [id number] 06:35:00 Test Item Value Reference Range Interpretation [...] code = BASO#) 0.0 thou/uL 0.0-0.2 N [id number] 07:40:00 Test Item Value Reference Range Interpretation [...] code 8.9 mg/dL 7.8-10.44 N = CA) [id number] 07:19:00 Test Item Value Reference Range Interpretation [...] thou/uL 0.0-0.2 N Chemistry - BNP, HgbA1c, [id number] 19:31:00 Test Item Value Reference Range Interpretation Comments Chemistry - BNP, HgbA1c, PTHi 32.8 pg/mL 0-100 N (test code = BNP) [id number] 19:30:00 Test Item Value Reference Range Interpretation Comments Chemistry (test Less than < 0.028 code = TROPI-R) 0.010 ng/mL Reference Ra nge 0.00 - 0.028 ng /mL Negative 0.029 - 0.29 ng/mL Indetermi hesham Greater or Equa l to 0.3 ng/mL Stron gly suggests DC [id number] 19:28:00 Test Item Value Reference Range Interpretation [...] U/L 8-55 N = ALT) Chemistry - [id number] 19:24:00 Test Item Value Reference Range Interpretation Comments Chemistry - Lactate (test code = 0.9 mmol/L 0.5-2.2 N LACTSEP-T) [id number] 19:14:00 Test Item Value Reference Range Interpretation [...] Imaging Center Pt Name: JEN DURON [address] [facility]. Phys: [place] [address] : 1950 Age: 69 SEX:F [phone] Exam Date: 12/27/19 Status: REG CLI Acct: [id number]: BICMAMMO Pt Unit #: [id number] Report #: [id number] CC: Ck Balbuena MD MAMMOGRAPHY REPORT Order # Category/Exam [id number] MMO/MAMMO Unilat Diag DDI LT+ALIREZA ([id number]): . Results 2 Left Breast MAMMO Unilat [...] been compared to priorimaging studies performed at [facility] on 06/07/2019, 09/12/2019 and 12/27/2019. [...] Reported by: BRYAN CARTER MD Electonically Signed: [id number] Reported By: Bryan Carter MD Electronically Signed Date/Time: 12/27/19 1055 Technologist: JASS Dictated Date/Time: 12/27/19 Transcribed Date/Time: 12/27/19MAMMO Unilat Diag DDI LT+ALIREZA [facility] Pt Name: JEN DURON [address] [facility]. Phys: [place] [address] : 1950 Age: 69 SEX:F [phone] Exam Date: 12/27/19 Status: REG CLI Acct: [id number]: BICMAMMO Pt Unit #: [id number] Report #: [id number] CC: Ck Balbuena MD MAMMOGRAPHY REPORT Order# Category/Exam [id number] MMO/MAMMO Unilat Diag DDI LT+ALIREZA ([id number]): . Results 2 Left Breast MAMMO Unilat [...] compared to prior imaging studies performed at [facility] on 06/07/2019, 09/12/2019 and 12/27/2019. [...] Reported by: BRYAN CARTER MD Electonically Signed: [id number] Reported By: Bryan Carter MD Electronically Signed Date/Time: 12/27/19 1055 Technologist: [email or web address] Dictated Date/Time: 12/27/19 Transcribed Date/Time: 12/27/19 Breast [facility]Diagn[facility] Pt Name: DURONJEN ESPINOZA [address] [facility]. Phys: Ck Balbuena [place], [place] [address] : 1950 Age: 69 SEX:F [phone] Exam Date: 12/27/19 Status: REG CLI Acct: [id number]: ASHVINFARHANADEYANIRA Pt Unit #: [id number] Report #: [id number] CC: Ck Balbuena MD ULTRASOUND REPORT Order # Category/Exam [id number] ULT/US Breast Limited Lt ([id number]): . Results 2 LEFT BREAST ULTRASOUND: Date: [...] Soft Tissue W Paulo Reynolds Pt Name: DOMIJEN Lydia Mah[address] Dr. Phys: [place] [address] : 1950 Age: 68 SEX:F [phone] Exam Date: 10/18/19 Status: DEP ER Acct: [id number] Loc: MARIA E Pt Unit #: [id number] Report #: [id number] CC: MELLO GRIGSBY MD CAT SCAN REPORT Order # Category/Exam [id number] CT/CT Neck Soft Tissue W Con ([id number]): . Results POSTCONTRAST SOFT TISSUE NECK CT [...] 10/18/19 1521 Transcribed Date/Time:XR Chest 1 View [facility] Name: JEN DURON [address] Phys: [place] [address] : 1950 Age: 68 SEX:F [phone] Exam Date: 10/18/19 Status: DEP ER Acct: [id number] Loc: MARIA E Pt Unit #: [id number] Report #: [id number] CC: MELLO GRIGSBY MD IMAGING SERVICES REPORT Order # Category/Exam [id number] RAD/XR Chest 1 View Portable ([id number]): . Results PORTABLE CHEST: 10/18/19 Comparison is [...] Date/Time: 10/18/19 230 Technologist: IMELDA Dictated Date/Time: 10/18/19 2100 Transcribed Date/Time: 10/18/192119 Breast [facility]Diagn[facility] Pt Name: JEN DURON [address] [facility]. Phys: [place] [address] : 1950 Age: 68 SEX:F [phone] Exam Date: 09/12/19 Status: REG CLI Acct: [id number]: BICULT Pt Unit #: [id number] Report #: [id number] CC: Ck Balbuena MD ULTRASOUND REPORT Order # Category/Exam [id number] ULT/US Breast Limited Lt ([id number]): . Results 3 LEFT BREAST DIAGNOSTIC ULTRASOUND: [...] DDI+[facility]agnostic [facility] Pt Name: JEN DURON [address] [place] [address]. Phys: [place] [address] : 1950 Age: 68 SEX:F [phone] Exam Date: 06/07/19 Status: REG CLI Acct: [id number]: BICMAMMO Pt Unit #: [id number] Report #: [id number] CC: Ck Balbuena MD MAMMOGRAPHY REPORT Order# Category/Exam [id number] MMO/MAMMO Bilat Diag DDI+ALIREZA ([id number]): . Results 3 Bilateral MAMMO Bilat Diag [...] been compared to prior imaging studies performedat [facility] on 06/07/2019, and at [facility] on 09/29/2018. MAMMOGRAM FINDINGS:The breasts are heterogeneously [...] benign finding - short interval follow-up suggested. [facility] will notify the patient of the need for additional imaging services. MAMMOGRAPHY NOTE: 1. A negative mammogram report should not delay a biopsy if a dominant of clinically suspicious mass is present. 2. Approximately 10% to 15% of breast cancers are not detected by mammography. 3. Adenosis and dense breasts may obscure an underlying neoplasm. Reported by: JAVY MULLINS MD Electonically Signed: [id number] Reported By: Javy uMllins MD Electronically Signed Date/Time: 06/07/19 09 Technologist: JENNIFER Dictated Date/Time: 06/07/19 Transcribed Date/Time: 06/07/19US Breast Limited Lt [facility] Pt Name: JEN DURON [address] [place] [address]. Phys: [place] [address] : 1950 Age: 68 SEX:F [phone] Exam Date: 06/07/19 Status: REG CLI Acct: [id number]: BICMAMMO Pt Unit #: [id number] Report #: [id number] CC: Ck Balbuena MD ULTRASOUND REPORT Order # Category/Exam [id number] ULT/US Breast Limited Lt ([id number]): . Results 3 DIAGNOSTIC LEFT BREAST ULTRASOUND: [...] Imaging Center Pt Name: JEN DURON [address] [facility]. Phys: [place] [address] : 1950 Age: 68 SEX:F [phone] Exam Date: 06/07/19 Status: DEP CLI Acct: [id number]: DAXA Pt Unit #: [id number] Report #: [id number] CC: Ck Balbuena MD MAMMOGRAPHY REPORT Order# Category/Exam [id number] MMO/MAMMO Bilat Diag DDI+ALIREZA ([id number]): . Results 3 Bilateral MAMMO Bilat Diag [...] been compared to prior imaging studies performedat [facility] on 06/07/2019, and at [facility] on 09/29/2018. MAMMOGRAM FINDINGS:The breasts are heterogeneously [...] benign finding - short interval follow-up suggested. [facility] will notify the patient of the need for additional imaging services.MAMMOGRAPHY NOTE: 1. A negative mammogram report should not delay a biopsy if a dominant of clinically suspicious mass is present. 2. Approximately 10% to 15% of breast cancers are not detected by mamm ography. 3. Adenosis and dense breasts may obscure an underlying neoplasm. Reported by: JAVY MULLINS MD Electonically Signed: [id number] Reported By: Javy Mullins MD Electronically Signed Date/Time: 06/07/19 0916 Technologist: JENNIFER Dictated Date/Time: 06/07/19 Transcribed Da te/Time: 06/07/19XR Chest Pa Lat [facility] Pt Name: JEN DURON Dr. Phys: [place] [address] : 1950 Age: 68 SEX:F [phone] Exam Date: 02/17/19 Status: DEP ER Acct: [id number] Loc: [facility]IA E Pt Unit #: [id number] Report #: [id number] CC: ESTEPHANIE MANRIQUE MD IMAGING SERVICES REPORT Order # Category/Exam [id number] RAD/XR Chest Pa Lat STANDARD ([id number]): . Results T CHEST TWO VIEWS: 02/17/19 [...] FAITH CAMPBELL MD Electronically Signed Date/Time: 02/17/19 9074 Technologist: ROBSON Dictated Date/Time: 02/17/192299 Transcribed Date/Time: 02/17/192303
[2022-11-21] MEDS ORDERED: NA CHLORIDE 0.9% 1,000 ML ONE (20:19)
[2022-11-21 20:32] LABS: Absolute Lymphocytes (CBC) 0.6 K/uL (0.7-4.9); Hematocrit 37.9 % (36.0-45.0); Lymphocytes % 5.5 % (15.3-44.8); MCV 89.9 fL (80-100); MPV 7.7 fL (7.6-11.3); RBC Red Blood Cell Count 4.22 M/uL (3.86-4.86)
[2022-11-21 20:57] LABS: Potassium 4.3 mmol/L (3.5-5.1)
[2022-11-21 20:58] LABS: Bilirubin Total 0.4 mg/dL (0.2-1.0)
[2022-11-21 20:59] LABS: Albumin 2.9 g/dL (3.4-5.0); Magnesium 1.8; Protein, Total 7.2 g/dL (6.4-8.2)
--- NOTE | 2022-11-21 21:03 | RAD REPORT ---
EXAM DESCRIPTION: Joshua Single View11/21/2022 8:56 pm CLINICAL HISTORY: Chest pain COMPARISON: October 2022 FINDINGS: The lungs appear clear of acute infiltrate. The heart is normal size. Old fractures ribs and left clavicle IMPRESSION: No acute abnormalities displayed
--- NOTE | 2022-11-21 21:04 | RAD REPORT ---
EXAM DESCRIPTION: RAD - Elbow Left 3 View - 11/21/2022 8:54 pm CLINICAL HISTORY: Left elbow pain status post trauma FINDINGS: No fracture or dislocation is seen.
--- NOTE | 2022-11-21 21:05 | RAD REPORT ---
EXAM DESCRIPTION: RAD - Shoulder Right 2 View - 11/21/2022 8:56 pm CLINICAL HISTORY: Right shoulder pain FINDINGS: No fracture or dislocation is seen. Mild to moderate osteoarthritis AC joint
--- NOTE | 2022-11-21 21:07 | RAD REPORT ---
EXAM DESCRIPTION: RAD - Knee Right 3 View - 11/21/2022 8:54 pm CLINICAL HISTORY: Right knee pain status post injury FINDINGS: No fracture or dislocation is seen. Soft tissue swelling
[2022-11-21 21:10] LABS: Urine Blood 2+ (Negative); Urine Glucose Negative (Negative); Urine Protein 2+ (Negative)
[2022-11-21 21:20] LABS: Urine Bacteria <20 /HPF (<20); Urine Crystals Unidentified Few /HPF (None Seen); Urine RBC >50 /HPF (None Seen); Urine WBC Clump Few /HPF (None Seen)
--- NOTE | 2022-11-21 21:55 | EDPHYS ---
Physician Documentation [facility] Name: Cassia Garcia Age: 71 yrs Sex: Female : 1950 Arrival Date: 11/21/2022 Time: 19:48 Bed 3 Private MD: ED Physician Javy Odell HPI: 11/21 20:02 This 71 yrs old Female presents to ER via EMS with complaints of Fall, dizziness. rt 20:02 Patient presents to the ED following a fall. Patient was seen in the ED earlier today rt for a fall, was discharged after negative x-rays. Patient states that she was started on a new medication, she cannot remember what it is for or what the medicine is but she states that after starting that, she has been dizzy and weak. She states this is why she fell. She denies hitting her head. She reports a worsening of the pain to the right shoulder, right knee as well as a skin tear to the left elbow. She is adamant that she did not hit her head. She denies chest pain, acute complaints. Symptoms are moderate in severity, no other aggravating or alleviating factors.. Historical: - Allergies: 20:00 paper tape; kr3 - PMHx: 20:00 Anxiety; Bipolar disorder; COPD; Schizophrenia; kr3 - PSHx: 20:00 section; Cholecystectomy; hysterectomy; kr3 - Immunization history:: Adult Immunizations unknown. - Social history:: Smoking status: Patient/guardian denies using tobacco, the patient reports quitting approximately 5 years ago. - Family history:: not pertinent. ROS: 20:02 Constitutional: Negative for fever, chills, and weight loss, Eyes: Negative for injury, rt pain, redness, and discharge, Cardiovascular: Negative for chest pain, palpitations, and edema, Respiratory: Negative for shortness of breath, cough, wheezing, and pleuritic chest pain, Abdomen/GI: Negative for abdominal pain, nausea, vomiting, diarrhea, and constipation, Skin: Negative for injury, rash, and discoloration, Psych: Negative for depression, anxiety, suicide ideation, homicidal ideation, and hallucinations. 20:02 MS/extremity: Positive for Positive for skin tear, contusion. 20:02 Neuro: Positive for dizziness, weakness. Exam: 20:02 Constitutional: This is a well developed, well nourished patient who is awake, alert, rt and in no acute distress. Head/Face: Normocephalic, atraumatic. Chest/axilla: Normal chest wall appearance and motion. Nontender with no deformity. No lesions are appreciated. Cardiovascular: Regular rate and rhythm with a normal S1 and S2. No gallops, murmurs, or rubs. Normal PMI, no JVD. No pulse deficits. Respiratory: Lungs have equal breath sounds bilaterally, clear to auscultation and percussion. No rales, rhonchi or wheezes noted. No increased work of breathing, no retractions or nasal flaring. Abdomen/GI: Soft, non-tender, with normal bowel sounds. No distension or tympany. No guarding or rebound. No evidence of tenderness throughout. Skin: Warm, dry with normal turgor. Normal color with no rashes, no lesions, and no evidence of cellulitis. Neuro: Awake and alert, GCS 15, oriented to person, place, time, and situation. Cranial nerves II-XII grossly intact. Motor strength 5/5 in all extremities. Sensory grossly intact. Cerebellar exam normal. Normal gait. Psych: Awake, alert, with orientation to person, place and time. Behavior, mood, and affect are within normal limits. 20:02 ECG was reviewed by the Attending Physician. 20:02 Musculoskeletal/extremity: Skin tear to the left elbow, mild tenderness diffusely throughout the elbow. Mild tenderness and bruising to the right knee, mild tenderness to the right shoulder, no deformities noted, pulses, motor, sensation and. Vital Signs: 19:54 BP 133 / 63; Pulse 107; Resp 18; Temp 98.9; Pulse Ox 95% on 3 lpm NC; Weight 137.44 kg; kr3 Height 5 ft. 1 in. (154.94 cm); Pain 8/10; 21:00 BP 158 / 90; Pulse 100; Resp 22; Pulse Ox 96% on 3 lpm NC; Pain 8/10; pf1 22:00 BP 110 / 98; Pulse 101; Resp 20; Pulse Ox 97% on 3 lpm NC; Pain 5/10; pf1 23:00 BP 128 / 64; Pulse 93; Resp 22; Pulse Ox 95% on 3 lpm NC; Pain 0/10; pf1 11/22 00:00 BP 139 / 68; Pulse 89; Resp 20; Pulse Ox 97% ; Pain 0/10; pf1 11/21 19:54 Body Mass Index 57.25 (137.44 kg, 154.94 cm) kr3 MDM: 11/21 19:54 Patient medically screened. rt 22:53 Differential Diagnosis UTI, electrolyte disturbance, anemia. Data reviewed: vital rt signs, nurses notes, lab test result(s), EKG, radiologic studies. Consideration of Admission/Observation Patient was admitted/placed on observation. Management of patient was discussed with the following: Hospitalist: Agrees to admit. I considered the following discharge prescriptions or medication management in the emergency department Medications were administered in the Emergency Department. See MAR. Test considered but Not performed: CT: No abdominal pain, CT scan not indicated. Counseling: I had a detailed discussion with the patient and/or guardian regarding: the historical points, exam findings, and any diagnostic results supporting the discharge/admit diagnosis, lab results, the need for further work-up and treatment in the hospital. 11/21 19:52 Order name: CBC with Diff rt 11/21 19:52 Order name: CMP rt 11/21 19:52 Order name: Troponin High Sensitivity rt 11/21 19:52 Order name: Magnesium rt 11/21 19:52 Order name: Urine Microscopic Only rt 11/21 20:32 Order name: CBC with Automated Diff; Complete Time: 20:54 EDMS 11/21 20:58 Order name: Comprehensive Metabolic Panel; Complete Time: 21:12 EDMS 11/21 20:59 Order name: Troponin High Sensitivity; Complete Time: 21:12 EDMS 11/21 20:59 Order name: Magnesium; Complete Time: 21:12 EDMS 11/21 21:10 Order name: Urine Dipstick-Ancillary; Complete Time: 21:12 EDMS 11/21 21:21 Order name: Urine Microscopic Only; Complete Time: 21:26 EDMS 11/21 21:45 Order name: Lactate w/ 2H reflex if indic. rt 11/21 21:45 Order name: Blood Culture Adult (2) rt 11/21 21:45 Order name: Urine Culture rt 11/21 19:52 Order name: Urine Dipstick-Ancillary (obtain specimen); Complete Time: 21:57 rt 11/21 19:52 Order name: EKG; Complete Time: 19:53 rt 11/21 19:52 Order name: EKG - Nurse/Tech; Complete Time: 20:09 rt 11/21 19:52 Order name: Elbow Left 3 View XRAY rt 11/21 19:52 Order name: Knee Right 3 View XRAY rt 11/21 19:52 Order name: Shoulder Right (2 View) XRAY rt 11/21 19:52 Order name: Chest Single View XRAY rt 11/21 21:03 Order name: RAD; Complete Time: 21:12 EDMS 11/21 21:04 Order name: RAD; Complete Time: 21:12 EDMS 11/21 21:06 Order name: RAD; Complete Time: 21:12 EDMS 11/21 21:08 Order name: RAD; Complete Time: 21:12 EDMS 11/21 22:00 Order name: SARS RAPID la1 11/21 23:04 Order name: Lactate w/ 2H reflex if indic. EDMS 11/21 23:06 Order name: SARS-COV-2 Antigen Rapid EDMS EC:02 Rate is 109 beats/min. Rhythm is regular, Sinus tachycardia with No ectopy. QRS Midnight is rt Normal. MO interval is normal. QRS interval is normal. QT interval is normal. No Q waves. T waves are Normal. No ST changes noted. Interpreted by me. Administered Medications: 20:16 Drug: NS 0.9% 1000 ml Route: IV; Rate: 1 bolus; Site: right hand; pf1 21:00 Follow up: Response: No adverse reaction pf1 22:00 Follow up: Response: No adverse reaction; IV Status: Completed infusion; IV Intake: pf1 1000ml 22:40 Drug: Rocephin (cefTRIAXone) 2 grams Route: IV; Rate: calculated rate; Site: right hand;pf1 22:45 Follow up: Response: No adverse reaction; Marked relief of symptoms; IV Status: pf1 Completed infusion; IV Intake: 10ml Disposition Summary: 11/21/22 21:55 Hospitalization Ordered Hospitalization Status: Inpatient Admission rt Provider: Bacilio Renner rt Location: Telemetry/[facility] (Inpatient) rt Condition: Stable rt Problem: new rt Symptoms: have improved rt Bed/Room Type: Standard rt Room Assignment: 221(11/22/22 00:21) Diagnosis - UTI/ Urinary tract infection, site not specified rt - Sepsis, unspecified organism rt - Fall on same level, unspecified rt Forms: - Medication Reconciliation Form rt - SBAR form rt Signatures: Dispatcher [employer] Purnima Mott RN RN cg Teresa Odronez RN RN kr3 Javy Odell MD MD rt Cristina birmingham RN RN pf1 Corrections: (The following items were deleted from the chart) 11/22 00:21 11/21 21:55 rt cg
--- NOTE | 2022-11-21 21:55 | ER ---
Nurse's Notes [facility] Name: Cassia Garcia Age: 71 yrs Sex: Female : 1950 Arrival Date: 11/21/2022 Time: 19:48 Bed 3 Private MD: Diagnosis: UTI/ Urinary tract infection, site not specified;Sepsis, unspecified organism;Fall on same level, unspecified Presentation: 11/21 19:54 Chief complaint: EMS states: patient brought from home. 2nd fall today, was seen in ED kr3 earlier for same reason. The fall was from standing, denies LOC, denies blood thinners. Skin tear on left forearm, pain in left elbow and left arm. Pain in right shoulder and right knee. Coronavirus screen: Vaccine status: Patient reports receiving the 2nd dose of the covid vaccine. Ebola Screen: Patient denies travel to an Ebola-affected area in the 21 days before illness onset. Initial Sepsis Screen: Does the patient meet any 2 criteria? No. Patient's initial sepsis screen is negative. Does the patient have a suspected source of infection? No. Patient's initial sepsis screen is negative. Risk Assessment: Do you want to hurt yourself or someone else? Patient reports no desire to harm self or others. Onset of symptoms was November 21, 2022. 19:54 Method Of Arrival: EMS kr3 19:54 Acuity: SAPPHIRE 3 kr3 Historical: - Allergies: 20:00 paper tape; kr3 - PMHx: 20:00 Anxiety; Bipolar disorder; COPD; Schizophrenia; kr3 - PSHx: 20:00 section; Cholecystectomy; hysterectomy; kr3 - Immunization history:: Adult Immunizations unknown. - Social history:: Smoking status: Patient/guardian denies using tobacco, the patient reports quitting approximately 5 years ago. - Family history:: not pertinent. Screenin:00 [facility] ED Fall Risk Assessment (Adult) History of falling in the last 3 months, pf1 including since admission Yes- physiologic fall (2 pts) Confusion or Disorientation No (0 pts) Intoxicated or Sedated No (0 pts) Impaired Gait Yes (1 pt) Mobility Assist Device Used Yes (1 pt) Altered Elimination No (0 pt) Score/Fall Risk Level 3 or more points = High Risk Oriented to surroundings, Maintained a safe environment, Educated pt \T\ family on fall prevention, incl call for assistance when getting out of bed, Assessed \T\ reinforced patient's understanding of fall precautions, Provided non-skid footwear, Hourly rounding (assess needs \T\ fall precautionary measures) done, Used ambulatory aids as needed (educated on \T\ assisted with), Used gait belt as appropriate Implemented a Fall Risk Plan of Care, Remained w/in arm's length of patient and in sight while toileting, Offered frequent toileting (1:1 observation), Remained with patient while ambulating, Utilized family, sitter, or virtual manager people as indicated. Abuse screen: Denies threats or abuse. Nutritional screening: No deficits noted. Tuberculosis screening: No symptoms or risk factors identified. Assessment: 20:00 General: Appears in no apparent distress. uncomfortable, obese, well groomed, well pf1 developed, Behavior is calm, cooperative, appropriate for age, quiet. 20:00 Pain: Complains of pain in left arm, left elbow, right shoulder and right knee pain of pf1 8 Pain currently is 8 out of 10 on a pain scale. 20:00 Neuro: Level of Consciousness is awake, alert, obeys commands, Oriented to person, pf1 place, time, situation, Reports dizziness, since 2 days. Cardiovascular: Capillary refill < 3 seconds Patient's skin is warm and dry. Respiratory: Airway is patent Trachea midline Respiratory effort is even, unlabored, Respiratory pattern is regular, symmetrical, Patient currently on 3LNC. 20:00 GI: Abdomen is round non-distended, Bowel sounds present X 4 quads. Abd is soft and non pf1 tender X 4 quads. Reports lower abdominal pain, upper abdominal pain, since 1 week. : No deficits noted. No signs and/or symptoms were reported regarding the genitourinary system. EENT: No deficits noted. No signs and/or symptoms were reported regarding the EENT system. Derm: Wound noted left arm Wound is skin tear 3cm x 4cm in an L shaped formation noted to left forearm, no active bleeding noted at this time. Musculoskeletal: Reports pain in right shoulder, right knee, left elbow and left forearm. 21:00 Reassessment: Patient appears in no apparent distress at this time. No changes from pf1 previously documented assessment. Patient and/or family updated on plan of care and expected duration. Pain level reassessed. Patient is alert, oriented x 3, equal unlabored respirations, skin warm/dry/pink. Patient states symptoms have not improved. 22:00 Reassessment: Patient appears in no apparent distress at this time. No changes from pf1 previously documented assessment. Patient and/or family updated on plan of care and expected duration. Pain level reassessed. Patient is alert, oriented x 3, equal unlabored respirations, skin warm/dry/pink. Patient states feeling better. Patient states symptoms have improved. 23:00 Reassessment: Patient appears in no apparent distress at this time. No changes from pf1 previously documented assessment. Patient and/or family updated on plan of care and expected duration. Pain level reassessed. Patient is alert, oriented x 3, equal unlabored respirations, skin warm/dry/pink. Patient states feeling better. Patient states symptoms have improved. 23:55 Reassessment: Patient appears in no apparent distress at this time. No changes from pf1 previously documented assessment. Patient and/or family updated on plan of care and expected duration. Pain level reassessed. Patient is alert, oriented x 3, equal unlabored respirations, skin warm/dry/pink. Patient states feeling better. Patient states symptoms have improved. Vital Signs: 19:54 BP 133 / 63; Pulse 107; Resp 18; Temp 98.9; Pulse Ox 95% on 3 lpm NC; Weight 137.44 kg; kr3 Height 5 ft. 1 in. (154.94 cm); Pain 8/10; 21:00 BP 158 / 90; Pulse 100; Resp 22; Pulse Ox 96% on 3 lpm NC; Pain 8/10; pf1 22:00 BP 110 / 98; Pulse 101; Resp 20; Pulse Ox 97% on 3 lpm NC; Pain 5/10; pf1 23:00 BP 128 / 64; Pulse 93; Resp 22; Pulse Ox 95% on 3 lpm NC; Pain 0/10; pf1 11/22 00:00 BP 139 / 68; Pulse 89; Resp 20; Pulse Ox 97% ; Pain 0/10; pf1 11/21 19:54 Body Mass Index 57.25 (137.44 kg, 154.94 cm) [facility] ED Course: 11/21 19:48 Patient arrived in ED. rv1 19:48 Javy Odell MD is Attending Physician. rt 20:00 Triage completed. kr3 20:00 Patient has correct armband on for positive identification. Placed in gown. Bed in low pf1 position. Call light in reach. Side rails up X2. 20:00 Arm band placed on. pf1 20:00 No provider procedures requiring assistance completed. Maintain EMS IV. Dressing pf1 intact. Good blood return noted. Site clean \T\ dry. Gauge \T\ site: 22 gauge to right hand. 20:00 Oxygen administration via nasal cannula \T\ 3L/min. pf1 20:24 Cristina birmingham RN is Primary Nurse. pf1 21:54 Bacilio Renner MD is Hospitalizing Provider. rt 21:57 Magnesium Sent. pf1 21:57 Troponin High Sensitivity Sent. pf1 21:57 Urine Microscopic Only Sent. pf1 21:57 CMP Sent. pf1 21:57 CBC with Diff Sent. pf1 22:40 Blood Culture Adult (2) Sent. pf1 22:40 Lactate w/ 2H reflex if indic. Sent. pf1 22:40 Urine Culture Sent. pf1 22:40 SARS RAPID Sent. pf1 0220 00:26 Patient admitted, IV remains in place. as6 Administered Medications: 11/21 20:16 Drug: NS 0.9% 1000 ml Route: IV; Rate: 1 bolus; Site: right hand; pf1 21:00 Follow up: Response: No adverse reaction pf1 22:00 Follow up: Response: No adverse reaction; IV Status: Completed infusion; IV Intake: pf1 1000ml 22:40 Drug: Rocephin (cefTRIAXone) 2 grams Route: IV; Rate: calculated rate; Site: right hand;pf1 22:45 Follow up: Response: No adverse reaction; Marked relief of symptoms; IV Status: pf1 Completed infusion; IV Intake: 10ml Medication: 11/22 00:26 VIS not applicable for this client. as6 Intake: 11/21 22:00 IV: 1000ml; Total: 1000ml. pf1 22:45 IV: 10ml; Total: 1010ml. pf1 Outcome: 21:55 Decision to Hospitalize by Provider. rt 11/22 00:26 Condition: stable as6 Instructed on the need for admit. 00:35 Admitted to Med/surg accompanied by tech, via stretcher, room 221, with chart, Report pf1 called to PURVI Villalta 00:51 Patient left the ED. as6 Signatures: Dimitris Hess RN RN as6 Teresa Ordonez RN RN kr3 Javy Odell MD MD rt Cristina birmingham RN RN pf1 Lashon Rees rv1 Corrections: (The following items were deleted from the chart) 11/21 21:19 20:00 Pain: Complains of pain in left arm, left elbow, right shoulder and right knee pf1 pain of 8 Pain currently is 8 out of 10 on a pain scale. pf1 21:22 20:00 GI: No deficits noted. Abdomen is round non-distended, Bowel sounds present X 4 pf1 quads. Abd is soft and non tender X 4 quads. pf1
[2022-11-21] MEDS ORDERED: CEFTRIAXONE 2000 MG/VIAL ONE (22:46)
[2022-11-21] MEDS ORDERED: NA CHLORIDE 0.9% 100 ML ONE (22:46)
--- NOTE | 2022-11-21 22:48 | P.HP ---
Certification for Inpatient Patient admitted to: Inpatient With expected LOS: >2 Midnights Patient will require the following post-hospital care: None Practitioner: I am a practitioner with admitting privileges, knowledge of patient current condition, hospital course, and medical plan of care. Services: Services provided to patient in accordance with Admission requirements found in Title 42 Section 412.3 of the Code of Federal Regulations Patient History Date of Service: 11/21/22 Reason for admission: Sepsis/UTI, multiple falls History of Present Illness: 71-year-old female with history of COPD on home O22 L, BPD/anxiety/schizophrenia presents to the emergency department for a fall. This is her second fall today, she has been falling more the past 2 to 3 days at home as she feels like her legs are very weak. She also reports dysuria over the course of the last 1 week. She was evaluated in the emergency department had x- rays and from a trauma standpoint her work-up was negative. Her urine did show 3+ leuk esterase, nitrate positive labs were significant for white blood cell count of 10.2. SIRS criteria present including tachycardia, tachypnea. She meets criteria for sepsis. ED provider wishes to admit for further evaluation and management of sepsis secondary to UTI, weakness, multiple falls. Allergies No Known Allergies Allergy (Verified 09/02/20 13:00) Home Medications: Aripiprazole [Abilify] 20 mg PO DAILY 09/30/18 Duloxetine HCl 60 mg PO DAILY 09/30/18 Levothyroxine [Synthroid*] 0.025 mg PO [id number] 09/30/18 Montelukast [Singulair*] 10 mg PO DAILY 09/30/18 Ropinirole HCl [Requip*] 0.25 mg PO BEDTIME 09/30/18 Trazodone HCl 100 mg PO BEDTIME 09/30/18 Albuterol Inhaler [Ventolin Inhaler*] 2 puff IH Q6H PRN #1 hfa.aer.[id number] 07/10/21 Buspirone HCl 15 mg PO BID #60 tablet 07/10/21 Meloxicam 1 tab PO DAILY 09/25/22 Pantoprazole [Protonix Tab*] 1 tab PO DAILY 09/25/22 Cephalexin [Keflex] 500 mg PO BID 5 Days #10 cap 09/26/22 Doxycycline Hyclate [Vibramycin] 100 mg PO BID 5 Days #10 tab 09/26/22 - Past Medical/Surgical History Diabetic: No -: Bipolar disorder -: Schizophrenia -: COPD, oxygen-dependent -: Former tobacco use -: Obesity -: hepatitis b -: anxiety -: L breast lumpectomy -: mack -: hysterectomy -: tubal ligation -: appendectomy -: removal of lump rt side Psychosocial/ Personal History: Patient is a . She lives by herself. She has 1 child. - Family History Father -: Heart disease Notes: dementia Mother -: Cancer Notes: bladder - Social History Smoking Status: Former smoker Alcohol use: Yes CD- Drugs: No Caffeine use: Yes Place of Residence: Home Review of Systems 10-point ROS is otherwise unremarkable General: Weakness, Malaise Genitourinary: Dysuria Physical Examination - Physical Exam General: Alert, In no apparent distress, Oriented x3, Obese HEENT: Atraumatic, PERRLA, Mucous membr. moist/pink, EOMI, Sclerae nonicteric Neck: Supple, 2+ carotid pulse no bruit, No LAD, Without JVD or thyroid abnormality Respiratory: Clear to auscultation bilaterally, Normal air movement, Diminished Cardiovascular: Regular rate/rhythm, Normal S1 S2 Gastrointestinal: Normal bowel sounds, No tenderness Musculoskeletal: No tenderness Integumentary: No rashes Neurological: Normal speech, Normal strength at 5/5 x4 extr, Normal tone, Normal affect - Studies Laboratory Data (last 24 hrs) 11/21/22 20:13: Sodium 140, Potassium 4.3, BUN 20 H, Creatinine 0.76, Glucose 126 H, Magnesium 1.8, Total Bilirubin 0.4, AST 18, ALT 21, Alkaline Phosphatase 55 11/21/22 20:13: WBC 10.20, Hgb 12.1, Hct 37.9, Plt Count 180 Assessment and Plan - Plan Assessment: Sepsis secondary to UTI Multiple falls, deconditioning Chronic hypoxic respiratory failure secondary to COPDon 2 L home oxygen BPD/anxiety/schizophrenia Plan: Sepsis secondary to UTI Blood and urine cultures obtained, SIRS criteria present including tachycardia, tachypnea source of infection confirmed with UTI. Continue Rocephin. Multiple falls, deconditioning PT consult in place, will consult social media assistant well may benefit with home health/PT. Chronic hypoxic respiratory failure secondary to COPDon 2 L home oxygen Continue supplemental oxygen, as needed nebulizer treatments. BPD/anxiety/schizophrenia Continue home meds. DVT PPX: Lovenox Code status: Full Discharge Plan: Home Plan to discharge in: 72 Hours - Advance Directives Does patient have a Living Will: No Does patient have a Durable POA for Healthcare: No - Code Status/Comfort Care Code Status Assessed: Yes (Full code) Critical Care: No Time Spent Managing Pts Care (In Minutes): 70
[2022-11-21 23:05] LABS: SARS-CoV-2 Antigen Rapid Res Negative (Negative)
[2022-11-22] MEDS ORDERED: ONDANSETRON 4 MG/2 ML VIAL IV PRN (01:27)
[2022-11-22] MEDS ORDERED: ALBUTEROL 2.5 MG/3 ML NEB SOL NEB PRN (01:27)
[2022-11-22 02:24] VITALS: BMI 54.6
[2022-11-22] MEDS: ACETAMINOPHEN 500 MG TAB PO PRN ×4 (02:40→21:21)
[2022-11-22 04:23] LABS: Absolute Lymphocytes (CBC) 0.6 K/uL (0.7-4.9); Hematocrit 37.4 % (36.0-45.0); Lymphocytes % 6.6 % (15.3-44.8); MCV 90.4 fL (80-100); MPV 8.1 fL (7.6-11.3); RBC Red Blood Cell Count 4.14 M/uL (3.86-4.86)
[2022-11-22 04:31] LABS: Potassium 3.9 mmol/L (3.5-5.1)
[2022-11-22 04:55] LABS: Blood Morphology Comment NOT SEEN (NOT SEEN); Platelet Estimate ADEQ
[2022-11-22] MEDS: ENOXAPARIN 40 MG/0.4 ML SQ SCH (10:46)
[2022-11-22] MEDS: CEFTRIAXONE 1,000 MG in NA CHLORIDE 0.9% 50 ML IVPB SCH (10:47)
[2022-11-22] MEDS ORDERED: INFLUENZA VACCINE (for 6+ mo) 0.5 ML DOSE IMVAC ONE (12:00)
--- NOTE | 2022-11-22 12:36 | EKG ---
Test Date: 2022-11-21 Test Time: 20:00:22 Meter And Service Line Inspector: IRENE MEASUREMENT RESULTS: Intervals: Rate: 109 IN: 148 QRSD: 84 QT: 318 QTc: 428 [place]: P: 46 IN: 148 QRS: 45 T: 40 INTERPRETIVE STATEMENTS: Sinus tachycardia Otherwise normal ECG Compared to ECG 09/24/2022 19:01:55 Sinus rhythm no longer present Electronically Signed On 11-22-22 12:35:09 FABRIC FINISHER by Demarcus Adkins
[2022-11-22] MEDS ORDERED: NA CHLORIDE 0.9% 250 ML IV ONE (17:36)
--- NOTE | 2022-11-22 22:53 | P.PN ---
Subjective Date of Service: 11/22/22 PATIENT CONTINUES TO IMPROVE WITH NO NEW COMPLAINTS. CLINICAL SYMPTOMS ARE GETTING BETTER. CONTINUING TO WORK WITH PHYSICAL THERAPY. Review of Systems 10-point ROS is otherwise unremarkable Physical Examination - Vital Signs Temperature: 97.0 F Blood Pressure: 117/53 Pulse: 101 Respirations: 17 Pulse Ox (%): 95 - Physical Exam General: Alert, In no apparent distress, Oriented x3 Respiratory: Clear to auscultation bilaterally, Normal air movement Cardiovascular: Regular rate/rhythm, Normal S1 S2, No murmurs Gastrointestinal: Normal bowel sounds, Soft and benign, Non-distended, No tenderness Musculoskeletal: No clubbing, No swelling, No tenderness Neurological: Sensation intact, Cranial nerves 3-12 intact - Studies Medications List Reviewed: Yes Assessment & Plan - Problems (Diagnosis) (1) UTI (urinary tract infection) Current Visit: Yes Status: Acute (2) Restless leg syndrome, nonfamilial, uncontrolled Current Visit: No Status: Acute (3) Bipolar disorder Onset Date: 05/24/16 Current Visit: No Status: Chronic Qualifiers: Active/Remission status: currently active Current bipolar episode type: mixed Current episode severity: unspecified Qualified Code(s): F31.60 - Bipolar disorder, current episode mixed, unspecified (4) Tobacco abuse Onset Date: 08/08/17 Current Visit: No Status: Chronic - Plan CONT. WITH CURRENT POC: 1. CONTINUE WITH ANTIBIOTIC THERAPY 2. CONTINUE WITH PHYSICAL THERAPY 3. ARRANGE FOR ALF FACILITY PLACEMENT 4. CONTINUE WITH MEDICATION FOR RESTLESS LEG SYNDROME 5. CONTINUE WITH MEDICATION FOR BIPOLAR DISORDER 6. CONTINUE WITH ANXIOLYTICS 7. GI DVT PROPHYLAXIS Discharge Plan: Home - Advance Directives Does patient have a Living Will: No Does patient have a Durable POA for Healthcare: No - Code Status/Comfort Care Code Status Assessed: Yes Code Status: Full Code Critical Care: No Time Spent Managing PTS Care (In Minutes): 35
[2022-11-23] MEDS: ROPINIROLE HCL 0.25 MG TAB PO PRN ×2 (00:04→22:22)
[2022-11-23] MEDS: MONTELUKAST 10 MG TAB PO SCH ×2 (00:04→21:47)
[2022-11-23] MEDS: TRAZODONE 50 MG TABLET PO PRN ×2 (00:04→21:48)
[2022-11-23] MEDS: BUSPIRONE HCL 15 MG TABLET PO SCH ×4 (00:04→21:48)
[2022-11-23 04:37] LABS: Absolute Lymphocytes (CBC) 0.8 K/uL (0.7-4.9); Hematocrit 36.7 % (36.0-45.0); Lymphocytes % 8.9 % (15.3-44.8); MCV 90.1 fL (80-100); RBC Red Blood Cell Count 4.07 M/uL (3.86-4.86)
[2022-11-23] MEDS: LEVOTHYROXINE SOD 0.05 MG TABLET PO SCH (05:22)
[2022-11-23] MEDS: HOME MED 1 EA UNK (Albuterol Inhaler [Ventolin Inhaler*] 60 PUFF/8 GM Hfa.Aer.Ad) IH SCH (09:00)
[2022-11-23] MEDS: IPRATROPIUM BROM 0.5MG/2.5ML NEB PRN ×3 (09:10→19:25)
[2022-11-23] MEDS: ALBUTEROL 2.5 MG/3 ML NEB SOL NEB PRN ×3 (09:10→19:25)
[2022-11-23] MEDS: PANTOPRAZOLE 40MG TABLET PO SCH (09:43)
[2022-11-23] MEDS: ENOXAPARIN 40 MG/0.4 ML SQ SCH (09:44)
[2022-11-23] MEDS: CEFTRIAXONE 1,000 MG in NA CHLORIDE 0.9% 50 ML IVPB SCH (09:45)
[2022-11-23] MEDS: ACETAMINOPHEN 500 MG TAB PO PRN (21:47)
[2022-11-24] MEDS: IPRATROPIUM BROM 0.5MG/2.5ML NEB PRN ×4 (00:50→20:15)
[2022-11-24] MEDS: ALBUTEROL 2.5 MG/3 ML NEB SOL NEB PRN ×4 (00:50→20:15)
--- NOTE | 2022-11-24 05:48 | P.PN ---
Date of Service: 11/23/22 Subjective PATIENT IS DOING WELL. CLINICAL SYMPTOMS ARE IMPROVED. CONTINUE WITH ANTIBIOTIC THERAPY. Review of Systems 10-point ROS is otherwise unremarkable Physical Examination - Vital Signs REVIEWED - Physical Exam General: Alert, In no apparent distress, Oriented x3 Respiratory: Clear to auscultation bilaterally, Normal air movement Cardiovascular: Regular rate/rhythm, Normal S1 S2, No murmurs Gastrointestinal: Normal bowel sounds, Soft and benign, Non-distended, No tenderness Musculoskeletal: No clubbing, No swelling, No tenderness Neurological: NO FOCAL DEFICITS Assessment & Plan - Problems (Diagnosis) (1) UTI (urinary tract infection) Current Visit: Yes Status: Acute (2) Restless leg syndrome, nonfamilial, uncontrolled Current Visit: No Status: Acute (3) Bipolar disorder Onset Date: 05/24/16 Current Visit: No Status: Chronic Qualifiers: Active/Remission status: currently active Current bipolar episode type: mixed Current episode severity: unspecified Qualified Code(s): F31.60 - Bipolar disorder, current episode mixed, unspecified (4) Tobacco abuse Onset Date: 08/08/17 Current Visit: No Status: Chronic - Plan CONTINUE PLAN OF CARE MENTIONED BELOW: 1. CONTINUE WITH ANTIBIOTIC THERAPY 2. CONTINUE WITH PHYSICAL THERAPY 3. ARRANGE FOR [facility] FACILITY PLACEMENT 4. CONTINUE WITH MEDICATION FOR RESTLESS LEG SYNDROME 5. CONTINUE WITH MEDICATION FOR BIPOLAR DISORDER 6. CONTINUE WITH ANXIOLYTICS 7. GI DVT PROPHYLAXIS
[2022-11-24 06:08] LABS: Absolute Lymphocytes (CBC) 0.8 K/uL (0.7-4.9); Hematocrit 35.8 % (36.0-45.0); Lymphocytes % 14.7 % (15.3-44.8); MCV 89.5 fL (80-100)
[2022-11-24 06:15] LABS: Potassium 3.5 mmol/L (3.5-5.1)
[2022-11-24] MEDS: LEVOTHYROXINE SOD 0.05 MG TABLET PO SCH (06:17)
[2022-11-24] MEDS: HOME MED 1 EA UNK (Albuterol Inhaler [Ventolin Inhaler*] 60 PUFF/8 GM Hfa.Aer.Ad) IH SCH (09:00)
[2022-11-24] MEDS: ENOXAPARIN 40 MG/0.4 ML SQ SCH (09:03)
[2022-11-24] MEDS: DULOXETINE 20 MG CAP PO SCH (09:03)
[2022-11-24] MEDS: ARIPiprazole 5 MG TAB PO SCH (09:03)
[2022-11-24] MEDS: BUSPIRONE HCL 15 MG TABLET PO SCH ×3 (09:03→20:47)
[2022-11-24] MEDS: PANTOPRAZOLE 40MG TABLET PO SCH (09:03)
[2022-11-24] MEDS: CEFTRIAXONE 1,000 MG in NA CHLORIDE 0.9% 50 ML IVPB SCH (09:07)
[2022-11-24] MEDS: MONTELUKAST 10 MG TAB PO SCH (20:46)
[2022-11-24] MEDS: TRAZODONE 50 MG TABLET PO PRN (20:46)
[2022-11-24] MEDS: ACETAMINOPHEN 500 MG TAB PO PRN (20:46)
[2022-11-24] MEDS: AMOX/K CLAV 875 MG TAB PO SCH (20:46)
[2022-11-24] MEDS: ROPINIROLE HCL 0.25 MG TAB PO PRN (20:46)
[2022-11-25 05:42] LABS: Absolute Lymphocytes (CBC) 0.9 K/uL (0.7-4.9); Hematocrit 36.1 % (36.0-45.0); Lymphocytes % 16.8 % (15.3-44.8); MCV 90.1 fL (80-100)
[2022-11-25] MEDS: LEVOTHYROXINE SOD 0.05 MG TABLET PO SCH (05:42)
[2022-11-25 05:54] LABS: Potassium 3.7 mmol/L (3.5-5.1)
[2022-11-25] MEDS: IPRATROPIUM BROM 0.5MG/2.5ML NEB PRN ×3 (07:53→20:45)
[2022-11-25] MEDS: ALBUTEROL 2.5 MG/3 ML NEB SOL NEB PRN ×3 (07:53→20:45)
[2022-11-25] MEDS: DULOXETINE 20 MG CAP PO SCH (08:51)
[2022-11-25] MEDS: PANTOPRAZOLE 40MG TABLET PO SCH (08:52)
[2022-11-25] MEDS: BUSPIRONE HCL 15 MG TABLET PO SCH ×3 (08:52→20:30)
[2022-11-25] MEDS: AMOX/K CLAV 875 MG TAB PO SCH ×2 (08:52→20:30)
[2022-11-25] MEDS: ARIPiprazole 5 MG TAB PO SCH (08:53)
[2022-11-25] MEDS: ENOXAPARIN 40 MG/0.4 ML SQ SCH (08:53)
[2022-11-25] MEDS: ACETAMINOPHEN 500 MG TAB PO PRN (08:55)
[2022-11-25] MEDS: HOME MED 1 EA UNK (Albuterol Inhaler [Ventolin Inhaler*] 60 PUFF/8 GM Hfa.Aer.Ad) IH SCH (09:00)
[2022-11-25] MEDS ORDERED: HYDROCORTISONE SUC 100 MG INJ IV ONE (09:40)
--- NOTE | 2022-11-25 09:52 | P.PN ---
Date of Service: 11/24/22 Subjective Pt is continuing to improve; strength is improved; ambulating better with PT; awaiting SNF placement-switched to oral antibiotics Review of Systems 10-point ROS is otherwise unremarkable Physical Examination - Vital Signs REVIEWED - Physical Exam General: Alert, in no apparent distress, Oriented x3; Respiratory: Clear to auscultation bilaterally, Normal air movement Cardiovascular: Regular rate/rhythm, Normal S1 S2, No murmurs Gastrointestinal: Normal bowel sounds, Soft and benign, Non-distended, No tenderness Musculoskeletal: No clubbing, No swelling, No tenderness Neurological: No focal deficits except for lower extremity weakness Assessment & Plan - Problems (Diagnosis) (1) UTI (urinary tract infection) with encephalopathy Current Visit: Yes Status: Acute (2) Restless leg syndrome, nonfamilial, uncontrolled Current Visit: No Status: Acute (3) Bipolar disorder Onset Date: 05/24/16 Current Visit: No Status: Chronic Active/Remission status: currently active Current bipolar episode type: mixed Current episode severity: unspecified Qualified Code(s): F31.60 - Bipolar disorder, current episode mixed, unspecified (4) Tobacco abuse Onset Date: 08/08/17 Current Visit: No Status: Chronic (5) Generalized weakness/myopathy Current Visit: Yes Status: Acute - Plan CONTINUE PLAN OF CARE MENTIONED BELOW: 1. CONTINUE WITH ABX THERAPY 2. CONTINUE WITH PT 3. ARRANGE FOR SNF PLACEMENT 4. CONTINUE WITH MEDICATION FOR RESTLESS LEG SYNDROME 5. CONTINUE WITH MEDICATION FOR BIPOLAR DISORDER 6. CONTINUE WITH ANXIOLYTICS 7. GI/DVT PROPHYLAXIS
--- NOTE | 2022-11-25 16:29 | EKG ---
Test Date: 2022-11-25 Test Time: 11:07:59 Medication Coordinator: MERARI MEASUREMENT RESULTS: Intervals: Rate: 86 IL: 154 QRSD: 86 QT: 362 QTc: 433 [place]: P: 48 IL: 154 QRS: 48 T: 56 INTERPRETIVE STATEMENTS: Normal sinus rhythm Normal ECG Compared to ECG 11/21/2022 20:00:22 Sinus tachycardia no longer present Electronically Signed On 11-25-22 16:28:37 PLATEN GRINDER by Demarcus Adkins
[2022-11-25] MEDS: MONTELUKAST 10 MG TAB PO SCH (20:30)
[2022-11-25] MEDS: TRAZODONE 50 MG TABLET PO PRN (20:37)
[2022-11-25] MEDS: ROPINIROLE HCL 0.25 MG TAB PO PRN (20:37)
[2022-11-26] MEDS: ALBUTEROL 2.5 MG/3 ML NEB SOL NEB PRN (02:00)
[2022-11-26] MEDS: IPRATROPIUM BROM 0.5MG/2.5ML NEB PRN (02:00)
[2022-11-26] MEDS: LEVOTHYROXINE SOD 0.05 MG TABLET PO SCH (06:17)
[2022-11-26] MEDS: DULOXETINE 20 MG CAP PO SCH (08:35)
[2022-11-26] MEDS: BUSPIRONE HCL 15 MG TABLET PO SCH ×3 (08:35→21:30)
[2022-11-26] MEDS: PANTOPRAZOLE 40MG TABLET PO SCH (08:36)
[2022-11-26] MEDS: AMOX/K CLAV 875 MG TAB PO SCH ×2 (08:36→21:30)
[2022-11-26] MEDS: ENOXAPARIN 40 MG/0.4 ML SQ SCH (08:36)
[2022-11-26] MEDS: ARIPiprazole 5 MG TAB PO SCH (08:42)
[2022-11-26] MEDS: HOME MED 1 EA UNK (Albuterol Inhaler [Ventolin Inhaler*] 60 PUFF/8 GM Hfa.Aer.Ad) IH SCH (08:43)
[2022-11-26] MEDS: MONTELUKAST 10 MG TAB PO SCH (21:30)
[2022-11-26] MEDS: TRAZODONE 50 MG TABLET PO PRN (21:33)
[2022-11-27] MEDS: LEVOTHYROXINE SOD 0.05 MG TABLET PO SCH (05:04)
[2022-11-27 08:51] VITALS: BP 141/67; TEMP 97.7
[2022-11-27] MEDS: HOME MED 1 EA UNK (Albuterol Inhaler [Ventolin Inhaler*] 60 PUFF/8 GM Hfa.Aer.Ad) IH SCH (09:00)
[2022-11-27] MEDS: ENOXAPARIN 40 MG/0.4 ML SQ SCH (09:12)
[2022-11-27] MEDS: ARIPiprazole 5 MG TAB PO SCH (09:12)
[2022-11-27] MEDS: DULOXETINE 20 MG CAP PO SCH (09:13)
[2022-11-27] MEDS: AMOX/K CLAV 875 MG TAB PO SCH (09:13)
[2022-11-27] MEDS: PANTOPRAZOLE 40MG TABLET PO SCH (09:13)
[2022-11-27] MEDS: BUSPIRONE HCL 15 MG TABLET PO SCH (09:29)
[2022-11-27 15:01] VITALS: O2SAT 95
--- NOTE | 2022-12-13 22:22 | P.PN ---
Date of Service: 11/25/22 Subjective Patient continues to improve and we are awaiting for [facility] facility placement. Patient's strength is continuing to get better. Continue with antibiotics. Review of Systems 10-point ROS is otherwise unremarkable Physical Examination - Vital Signs REVIEWED - Physical Exam General: Alert, in no apparent distress, Oriented x3; Respiratory: Clear to auscultation bilaterally, Normal air movement Cardiovascular: Regular rate/rhythm, Normal S1 S2, No murmurs Gastrointestinal: Normal bowel sounds, Soft and benign, Non-distended, No tenderness Musculoskeletal: No clubbing, No swelling, No tenderness Neurological: No focal deficits except for lower extremity weakness Assessment & Plan - Problems (Diagnosis) (1) UTI (urinary tract infection) with encephalopathy Current Visit: Yes Status: Acute (2) Restless leg syndrome, nonfamilial, uncontrolled Current Visit: No Status: Acute (3) Bipolar disorder Onset Date: 05/24/16 Current Visit: No Status: Chronic Active/Remission status: currently active Current bipolar episode type: mixed Current episode severity: unspecified Qualified Code(s): F31.60 - Bipolar disorder, current episode mixed, unspecified (4) Tobacco abuse Onset Date: 08/08/17 Current Visit: No Status: Chronic (5) Generalized weakness/myopathy Current Visit: Yes Status: Acute - Plan CONTINUE PLAN OF CARE MENTIONED BELOW: 1. CONTINUE WITH ABX THERAPY 2. CONTINUE WITH PHYSICAL THERAPY 3. AWAITING FOR SNF PLACEMENT 4. CONTINUE WITH RX FOR RESTLESS LEG SYNDROME 5. CONTINUE WITH RX FOR BIPOLAR DISORDER 6. CONTINUE WITH ANXIOLYTICS 7. GI/DVT PROPHYLAXIS
--- NOTE | 2022-12-13 22:24 | P.PN ---
Date of Service: 11/26/22 Subjective PATIENT'S ACCEPTED BY [facility]. PLAN TO DISCHARGE TOMORROW LONG PATIENT'S CLINICAL SYMPTOMS ARE IMPROVED. Review of Systems 10-point ROS is otherwise unremarkable Physical Examination - Vital Signs REVIEWED - Physical Exam General: Alert, in no apparent distress, Oriented x3; Respiratory: Clear to auscultation bilaterally, Normal air movement Cardiovascular: Regular rate/rhythm, Normal S1 S2, No murmurs Gastrointestinal: Normal bowel sounds, Soft and benign, Non-distended, No tenderness Musculoskeletal: No clubbing, No swelling, No tenderness Neurological: No focal deficits except for lower extremity weakness Assessment & Plan - Problems (Diagnosis) (1) UTI (urinary tract infection) with encephalopathy Current Visit: Yes Status: Acute (2) Restless leg syndrome, nonfamilial, uncontrolled Current Visit: No Status: Acute (3) Bipolar disorder Onset Date: 05/24/16 Current Visit: No Status: Chronic Active/Remission status: currently active Current bipolar episode type: mixed Current episode severity: unspecified Qualified Code(s): F31.60 - Bipolar disorder, current episode mixed, unspecified (4) Tobacco abuse Onset Date: 08/08/17 Current Visit: No Status: Chronic (5) Generalized weakness/myopathy Current Visit: Yes Status: Acute - Plan CONTINUE PLAN OF CARE MENTIONED BELOW: 1. CONTINUE WITH ABX THERAPY 2. CONTINUE WITH PHYSICAL THERAPY 3. SNF PLACEMENT APPROVED-DC IN THE AM 4. CONTINUE WITH RX FOR RESTLESS LEG SYNDROME 5. CONTINUE WITH RX FOR BIPOLAR DISORDER 6. CONTINUE WITH ANXIOLYTICS 7. GI/DVT PROPHYLAXIS
--- NOTE | 2022-12-13 22:25 | P.DS ---
Discharge Date: 11/27/22 Disposition: DC HOME/HOME HEALTH CARE Discharge Condition: GOOD Reason for Admission: Sepsis/UTI, multiple falls - Problems (1) UTI (urinary tract infection) Status: Acute (2) Restless leg syndrome, nonfamilial, uncontrolled Status: Acute (3) Bipolar disorder Onset Date: 05/24/16 Status: Chronic Qualifiers: Active/Remission status: currently active Current bipolar episode type: mixed Current episode severity: unspecified Qualified Code(s): F31.60 - Bipolar disorder, current episode mixed, unspecified (4) Tobacco abuse Onset Date: 08/08/17 Status: Chronic Brief History of Present Illness: Pt is a 71-year-old female with history of COPD on home O22 L, BPD/anxiety/schizophrenia presents to the emergency department for a fall. This is her second fall today, she has been falling more the past 2 to 3 days at home as she feels like her legs are very weak. She also reports dysuria over the course of the last 1 week. She was evaluated in the emergency department had x- rays and from a trauma standpoint her work-up was negative. Her urine did show 3+ leuk esterase, nitrate positive labs were significant for white blood cell count of 10.2. SIRS criteria present including tachycardia, tachypnea. She meets criteria for sepsis. ED provider wishes to admit for further evaluation and management of sepsis secondary to UTI, weakness, multiple falls. Hospital Course: Patient has done well during hospital stay. Clinically, patient is much better. At this time, patient is stable for discharge home. Patient will follow-up with consultants and PCP as an outpatient. Patient will be discharged to custodial facility for continued therapy. Vital Signs/Physical Exam: Temp Pulse Resp BP Pulse Ox 97.7 F 93 H 18 141/67 H 95 11/27/22 08:00 11/27/22 08:00 11/27/22 08:00 11/27/22 08:00 11/27/22 08:00 General: Alert, In no apparent distress, Oriented x3 Laboratory Data at Discharge: WBC 5.40 K/uL (4.3-10.9) 11/25/22 05:09 Hgb 11.8 g/dL (12.0-15.0) L 11/25/22 05:09 Hct 36.1 % (36.0-45.0) 11/25/22 05:09 Plt Count 176 K/uL (152-406) 11/25/22 05:09 Sodium 140 mmol/L (136-145) 11/25/22 05:09 Potassium 3.7 mmol/L (3.5-5.1) 11/25/22 05:09 BUN 17 mg/dL (7-18) 11/25/22 05:09 Creatinine 0.63 mg/dL (0.55-1.02) 11/25/22 05:09 Glucose 118 mg/dL (74-106) H 11/25/22 05:09 Magnesium 1.8 11/21/22 20:13 Total Bilirubin 0.4 mg/dL (0.2-1.0) 11/21/22 20:13 AST 18 U/L (15-37) 11/21/22 20:13 ALT 21 U/L (13-56) 11/21/22 20:13 Alkaline Phosphatase 55 U/L (45-117) 11/21/22 20:13 Home Medications: Aripiprazole [Abilify] 20 mg PO DAILY 09/30/18 Duloxetine HCl 80 mg PO DAILY 09/30/18 Levothyroxine [Synthroid*] 0.025 mg PO [id number] 09/30/18 Montelukast [Singulair*] 10 mg PO BEDTIME 09/30/18 Ropinirole HCl [Requip*] 0.25 mg PO BEDTIME 09/30/18 Trazodone HCl 100 mg PO BEDTIME 09/30/18 Meloxicam 1 tab PO DAILY 09/25/22 Pantoprazole [Protonix Tab*] 1 tab PO DAILY 09/25/22 Albuterol Inhaler [Ventolin Inhaler*] 2 puff IH DAILY 11/22/22 Buspirone HCl 15 mg PO TID 11/22/22 Albuterol Neb [Proventil 0.083% Neb Soln] 2.5 mg NEB [id number] PRN #60 amp 11/27/22 Amox/Clavulanate [Augmentin 875-125 Tab*] 875 mg PO BID #14 tab 11/27/22 Ipratropium Neb [Atrovent*] 0.5 mg NEB [id number] PRN #60 amp 11/27/22 Nebulizer 1 each MC DAILY #1 ea 11/27/22 Nebulizer Accessories [Aeroneb Go] 1 each MC DAILY #1 ea 11/27/22 predniSONE [Deltasone] 20 mg PO BID #11 tab 11/27/22 New Medications: Nebulizer Accessories [Aeroneb Go] 1 each MC DAILY #1 ea Ipratropium Neb [Atrovent*] 0.5 mg NEB [id number] PRN #60 amp PRN Reason: Wheezing Amox/Clavulanate [Augmentin 875-125 Tab*] 875 mg PO BID #14 tab Nebulizer 1 each MC DAILY #1 ea predniSONE [Deltasone] 20 mg PO BID #11 tab Albuterol Neb [Proventil 0.083% Neb Soln] 2.5 mg NEB [id number] PRN #60 amp PRN Reason: Shortness Of Breath Physician Discharge Instructions: PROBLEM: UTI, Sepsis GOAL: Clear understanding of disease process INSTRUCTIONS: -DC IV and DC home -Follow-up with PCP in 1 to 2 weeks -Follow-up with Neurology in 1 to 2 weeks -Please call Dr. Renner at [phone] if any questions regarding hospital stay -Please call nursing station at [phone] if any nursing or medication questions -Return to the emergency room if symptoms worsen Diet: AHA Activity: Fall precautions Follow up with a Neurologist of your choice: AARON STANTON, PETR [address] [place] [address], [address] [place] [address] NATHEN STANTON, [address] [address] Diet: AHA Activity: Fall precautions Time spent managing pt's care (in minutes): 35
== END 2022-11-27 11:40 | disposition home health service (06) | DRG 871 ==
LOC: ER 19:44 → ERHOLD 22:28 → 2ND 11-22 00:30
PROVIDERS: ADMIT Hospitalist; ATTEND Hospitalist
DX: A41.9 Sepsis, unspecified organism (principal); G92.9 Unspecified toxic encephalopathy; N39.0 Urinary tract infection, site not specified; F19.20 Other psychoactive substance dependence, uncomplicated; Z68.43 Body mass index [BMI] 50.0-59.9, adult; J96.11 Chronic respiratory failure with hypoxia; F31.60 Bipolar disorder, current episode mixed, unspecified; F20.9 Schizophrenia, unspecified; M25.511 Pain in right shoulder; M25.561 Pain in right knee; E66.9 Obesity, unspecified; F41.9 Anxiety disorder, unspecified; G72.9 Myopathy, unspecified; G25.81 Restless legs syndrome; J44.9 Chronic obstructive pulmonary disease, unspecified; S51.012A Laceration without foreign body of left elbow, initial encounter; Z60.2 Problems related to living alone; Z90.49 Acquired absence of other specified parts of digestive tract; Z98.51 Tubal ligation status; Z91.048 Other nonmedicinal substance allergy status; Z87.891 Personal history of nicotine dependence; Z90.710 Acquired absence of both cervix and uterus; Z79.890 Hormone replacement therapy; Z79.899 Other long term (current) drug therapy; Z20.822 Contact with and (suspected) exposure to COVID-19; W18.30XA Fall on same level, unspecified, initial encounter
CPT/HCPCS: 36415; 71045; 71250; 74176; 80048; 80053; 81003; 81015; 83605; 83735; 84484; 85025; 87040; 87077; 87086; 87088; 87186; 87811; 93005; 96361; 96374; 97116; 97161; 97530; 99284; 99285; J0696; J1650; J1720; J2405; J7030; J7050; J7613; J7644